=== PATIENT | male | born 1960 | race American Indian/Alaskan Native ===

== ENCOUNTER 2019-04-19 22:47 | Observation (INO) | payer OTHER ==
[2019-04-19 23:25] LABS: Hematocrit 37.8 % (35.5-45.6); Hemoglobin 12.7 gm/dl (11.8-15.2); Mean Corpuscular HGB Conc 34 % (32-34); Mean Corpuscular Volume 84 fl (84-94); Platelet Count 136 K/mm3 (140-440); Red Cell Distribution Width 14.9 % (13.2-15.2)
[2019-04-19 23:46] LABS: Alanine Aminotransferase 248 units/L (7-56); Albumin 3.7 g/dL (3.9-5); BUN/Creatinine Ratio 12; Blood Urea Nitrogen 12 mg/dL (9-20); Calcium 9.3 mg/dL (8.4-10.2); Hemolysis Index 65
--- NOTE | 2019-04-20 00:31 | XRay Report ---
CHEST 2 VIEWS INDICATION / CLINICAL INFORMATION: hypertension. COMPARISON: None available. FINDINGS: SUPPORT DEVICES: None. HEART / MEDIASTINUM: No significant abnormality. LUNGS / PLEURA: Parenchymal density in the left apical region. No pneumothorax. ADDITIONAL FINDINGS: No significant additional findings. IMPRESSION: Increased density in the left apical region. CT of the chest may be helpful for further evaluation if clinically indicated Signer Name: Shane GTZ Signed: 04/20/2019 12:26 AM Workstation Name: [email or web address]
[2019-04-20 00:44] LABS: Bilirubin,Urine NEG (Negative); Blood,Urine NEG (Negative); Color,Urine Yellow (Yellow); Mucus,Urine FEW /HPF; Protein,Urine <15 mg/dL mg/dL (Negative)
[2019-04-20 01:06] LABS: Amphetamine Screen,Urine PRESUMPTIVE NEGATIVE; Benzodiazepines Screen,Urine PRESUMPTIVE NEGATIVE; Cannabinoid Screen,Urine PRESUMPTIVE NEGATIVE; Cocaine Screen,Urine PRESUMPTIVE NEGATIVE; Methadone Screen,Urine PRESUMPTIVE NEGATIVE
[2019-04-20] MEDS ORDERED: NACL 0.9% 1000 ML 1,000 ML IV ONE (01:53)
[2019-04-20] MEDS ORDERED: MORPHINE IV ONE (01:53)
[2019-04-20] MEDS ORDERED: BABY ASPIRIN PO ONE (01:53)
[2019-04-20 02:32] LABS: Opiate Screen,Urine PRESUMPTIVE NEGATIVE
--- NOTE | 2019-04-20 03:17 | Emergency Department Report ---
ED Chest Pain HPI - General Chief Complaint: Chest Pain Stated Complaint: POSS STROKE Time Seen by Provider: 04/19/19 23:09 Source: patient Mode of arrival: Ambulatory Limitations: No Limitations - History of Present Illness Initial Comments: Reports that he drinks approximately a 6-pack of beer on the weekends. Complaint: chest pain -: Gradual, hour(s) Onset: during rest Pain Location: substernal Pain Radiation: none Severity: mild Severity scale (0 -10): 3 Quality: aching Consistency: intermittent Improves With: nothing Worsens With: nothing re: other (reports symptoms of arm spasms and paresthesias in UE when he has chest pain). denies: nausea, vomting, diaphoresis, dyspnea, sense of impending doom Other Symptoms: denies: cough, fever, syncope, rash, acid taste in mouth, leg swelling, palpitations, burping - Related Data Previous Rx's Medication Instructions Recorded Last Taken Type Acetaminophen/Codeine 1 tab PO Q6H PRN #20 tab 12/07/14 Unknown Rx [Acetaminophen-Codeine #3 TAB] Ibuprofen [Motrin] 600 mg PO Q8H PRN #40 tablet 12/07/14 Unknown Rx Sulfamethoxazole/Trimethoprim 1 each PO BID #20 tablet 12/07/14 Unknown Rx [Bactrim Ds] Allergies Allergy/AdvReac Type Severity Reaction Status Date / Time No Known Allergies Allergy Verified 12/07/14 01:47 Heart Score - HEART Score History: Moderately suspicious EKG: Non-specific Age: 45-65 Risk factors: 1-2 risk factors Troponin: < normal limit HEART Score: 4 ED Review of Systems ROS: Stated complaint: POSS STROKE Other details as noted in HPI Other: GENERAL: No weight change, fatigue, weakness, fever, chills, or night sweats SKIN: No changes in skin or hair, no itching, no rashes, no jaundice HEAD: No trauma, headache, or visual changes EYES: No blurriness, tearing, itching, acute visual loss, conjunctival discoloration, or scleral icterus EARS: No hearing loss, tinnitus, vertigo, or earache NOSE: No rhinorrhea, stuffiness, sneezing, itching, or epistaxis MOUTH: No bleeding gums, hoarseness, sore throat, or swelling CARDIAC: Chest Pain. No new murmur, palpitations, dyspnea on exertion, orthopnea, PND, or edema RESPIRATORY: No shortness of breath, wheeze, cough, sputum production, hemoptysis, pneumonia, asthma, bronchitis, or emphysema GI: No change in appetite, nausea, vomiting, dysphagia, change in bowel frequency, diarrhea, constipation, bleeding, hematemesis, melena, hematochezia, or abdominal pain URINARY: No frequency, urgency, polyuria, dysuria, hematuria, or incontinence MUSCULOSKELETAL: Bilateral UE spasms. No muscle weakness, joint stiffness, decr ease in range of motion, redness, swelling NEUROLOGIC: Tingling bilateral UE. No loss of sensation, numbness, tremors, weakness, paralysis, seizures HEMATOLOGIC: No anemia, easy bruising, bleeding, petechiae, or purpura ENDOCRINE: No hot or cold intolerance, sweating, polyuria, polydipsia or, polyp hagia no thyroid problems PSYCHIATRIC: No change in mood, no anxiety, no depression ED Past Medical Hx - Past Medical History Previous Medical History?: Yes Hx Hypertension: Yes Hx Diabetes: Yes - Surgical History Past Surgical History?: No - Social History Smoking Status: Current Every Day Smoker Substance Use Type: Alcohol - Medications Home Medications: Home Medications Medication Instructions Recorded Confirmed Last Taken Type Acetaminophen/Codeine 1 tab PO Q6H PRN #20 tab 12/07/14 Unknown Rx [Acetaminophen-Codeine #3 TAB] Ibuprofen [Motrin] 600 mg PO Q8H PRN #40 tablet 12/07/14 Unknown Rx Sulfamethoxazole/Trimethoprim 1 each PO BID #20 tablet 12/07/14 Unknown Rx [Bactrim Ds] ED Physical Exam - General Limitations: No Limitations - Other Other exam information: GENERAL: Patient in no acute distress HEAD: Normocephalic, atraumatic EYES: PERRLA, EOM intact, no scleral icterus, no papilledema, no conjunctival hemorrhage, visual banerjee and acuity wnl, NOSE: No tenderness, discharge, sinus tenderness MOUTH: No erythema, bleeding, exudate HEART: Regular rate and rhythm, no murmur, S1-S2 are auscultated, pulses are symmetric LUNGS: No wheezing, rales, rhonchi, bilateral breath sounds ABDOMEN: Normal bowel sounds, no tenderness, no rebound, no guarding, no masses, no CVA tenderness MUSCULOSKELETAL: Normal joint range of motion, no redness, no swelling, no te nderness NEUROLOGIC: GCS 15, Alert and Oriented x3, Cranial nerves intact, normal sensation, normal strength, normal gait, no cerebellar deficit PSYCHIATRIC: No homicidal or suicidal ideation, no anxiety, no depression, no hallucinations SKIN: Skin is warm and dry, no wounds, no rashes ED Course Vital Signs 04/19/19 04/19/19 04/20/19 22:56 23:18 00:00 Temperature 98 F 98.1 F Pulse Rate 113 H 89 88 Respiratory 20 22 24 Rate Blood Pressure 117/87 118/70 Blood Pressure 126/78 [Left] O2 Sat by Pulse 98 100 100 Oximetry 04/20/19 01:00 Temperature Pulse Rate 86 Respiratory 31 H Rate Blood Pressure 128/77 Blood Pressure [Left] O2 Sat by Pulse 100 Oximetry ED Medical Decision Making - Lab Data Result diagrams: 04/19/19 23:11 04/19/19 23:11 Laboratory Results - last 24 hr 04/19/19 04/19/19 04/19/19 22:57 23:11 23:11 WBC 6.0 RBC 4.50 Hgb 12.7 Hct 37.8 MCV 84 MCH 28 MCHC 34 RDW 14.9 Plt Count 136 L Sodium 132 L Potassium 4.2 Chloride 94.1 L Carbon Dioxide 23 Anion Gap 19 BUN 12 Creatinine 1.0 Estimated GFR > 60 BUN/Creatinine Ratio 12 Glucose 190 H POC Glucose 206 H Calcium 9.3 Magnesium Total Bilirubin 1.90 H AST 159 H ALT 248 H Alkaline Phosphatase 135 H Troponin T < 0.010 Total Protein 7.1 Albumin 3.7 L Albumin/Globulin Ratio 1.1 Urine Color Urine Turbidity Urine pH Ur Specific Preston Urine Protein Urine Glucose (UA) Urine Ketones Urine Blood Urine Nitrite Urine Bilirubin Urine Urobilinogen Ur Leukocyte Esterase Urine WBC (Auto) Urine RBC (Auto) U Epithel Cells (Auto) Urine Mucus Urine Opiates Screen Urine Methadone Screen Ur Barbiturates Screen Ur Phencyclidine Scrn Ur Amphetamines Screen U Benzodiazepines Scrn Urine Cocaine Screen U Marijuana (THC) Screen Drugs of Abuse Note Plasma/Serum Alcohol 04/19/19 04/19/19 04/19/19 23:11 23:59 23:59 WBC RBC Hgb Hct MCV MCH MCHC RDW Plt Count Sodium Potassium Chloride Carbon Dioxide Anion Gap BUN Creatinine Estimated GFR BUN/Creatinine Ratio Glucose POC Glucose Calcium Magnesium 1.80 Total Bilirubin AST ALT Alkaline Phosphatase Troponin T Total Protein Albumin Albumin/Globulin Ratio Urine Color Yellow Urine Turbidity Clear Urine pH 6.0 Ur Specific Preston 1.012 Urine Protein <15 mg/dl Urine Glucose (UA) Neg Urine Ketones Neg Urine Blood Neg Urine Nitrite Neg Urine Bilirubin Neg Urine Urobilinogen 4.0 Ur Leukocyte Esterase Neg Urine WBC (Auto) 1.0 Urine RBC (Auto) 4.0 U Epithel Cells (Auto) 1.0 Urine Mucus Few Urine Opiates Screen Presumptive negative Urine Methadone Screen Presumptive negative Ur Barbiturates Screen Presumptive negative Ur Phencyclidine Scrn Presumptive negative Ur Amphetamines Screen Presumptive negative U Benzodiazepines Scrn Presumptive negative Urine Cocaine Screen Presumptive negative U Marijuana (THC) Screen Presumptive negative Drugs of Abuse Note Disclamer Plasma/Serum Alcohol 04/20/19 04/20/19 00:05 02:06 WBC RBC Hgb Hct MCV MCH MCHC RDW Plt Count Sodium Potassium Chloride Carbon Dioxide Anion Gap BUN Creatinine Estimated GFR BUN/Creatinine Ratio Glucose POC Glucose Calcium Magnesium Total Bilirubin AST ALT Alkaline Phosphatase Troponin T < 0.010 Total Protein Albumin Albumin/Globulin Ratio Urine Color Urine Turbidity Urine pH Ur Specific Preston Urine Protein Urine Glucose (UA) Urine Ketones Urine Blood Urine Nitrite Urine Bilirubin Urine Urobilinogen Ur Leukocyte Esterase Urine WBC (Auto) Urine RBC (Auto) U Epithel Cells (Auto) Urine Mucus Urine Opiates Screen Urine Methadone Screen Ur Barbiturates Screen Ur Phencyclidine Scrn Ur Amphetamines Screen U Benzodiazepines Scrn Urine Cocaine Screen U Marijuana (THC) Screen Drugs of Abuse Note Plasma/Serum Alcohol < 0.01 - EKG Data When compared to previous EKG there are: no significant change - Radiology Data Radiology results: report reviewed - Medical Decision Making At 0511 patient comfortable. Plan admit for further evaluation. Lung changes but no symptoms of pneumonia. Plan evaluate for chest pain rule out. Dr. Macias updated and accepts admission. Critical care attestation.: If time is entered above; I have spent that time in minutes in the direct care of this critically ill patient, excluding procedure time. ED Disposition Clinical Impression: Hyperbilirubinemia, Elevated LFTs Chest pain Qualifiers: Chest pain type: unspecified Qualified Code(s): R07.9 - Chest pain, unspecified Pneumonia Qualifiers: Pneumonia type: due to unspecified organism Laterality: unspecified laterality Lung location: unspecified part of lung Qualified Code(s): J18.9 - Pneumonia, unspecified organism Disposition: -09 OP ADMIT IP TO THIS HOSP Is pt being admited?: Yes Condition: Stable Instructions: Chest Pain (ED), Bacterial Pneumonia (ED) [facility] - 3-5 Days Time of Disposition: 05:06
--- NOTE | 2019-04-20 04:35 | Cat Scan Report ---
CT chest w con, CT abdomen pelvis w con INDICATION / CLINICAL INFORMATION: Chest Pain, abdomen and pelvic pain, elevated liver function tests. TECHNIQUE: 100 cc of Omnipaque 350 was administered intraven[address] All CT scans at this location are performed us ing CT dose reduction for ALARA by means of automated exposure control. COMPARISON: None available. FINDINGS: Diffuse airspace disease is seen in the left apex there are a few bulla seen lower in the left lung. No other significant parenchymal abnormality is identified. No enlarged mediastinal or hilar lymph no lory are identified. No significant skeletal abnormality is seen in the thorax. In the abdomen, no free fluid is seen. There are some fluid-filled loops of small bowel present. Diff use fatty infiltration is present in the liver without focal abnormality. The spleen, kidneys, pancre as and adrenal glands are normal. No enlarged retroperitoneal lymph nodes are seen. Diffuse atheroscl erotic changes present without evidence of an aneurysm. In the pelvis, no free fluid is seen. No enlarged lymph nodes are identified. The bladder and the tete endix are normal. No significant skeletal abnormality is identified. IMPRESSION: 1. Airspace disease in the left apex. There are a few bulla present more inferiorly in the left lung 2. Fluid-filled loops of small bowel could represent mild enteritis 3. Diffuse fatty infiltration in the liver without focal abnormality 4. Atherosclerotic change without evidence of an aneurysm Signer Name: Shane Baker MD FACR Signed: 04/20/2019 4:31 AM Workstation Name: [id number]
[2019-04-20] MEDS ORDERED: LEVAQUIN 750MG/150ML 750 MG/150 ML BAG IV ONE ×2 (05:02→05:51)
[2019-04-20] MEDS ORDERED: TYLENOL PO PRN (05:07)
[2019-04-20] MEDS ORDERED: SODIUM CHLORIDE FLUSH SYRINGE 10 ML IV PRN (05:07)
[2019-04-20] MEDS ORDERED: ZOFRAN IV PRN ×2 (05:07→05:24)
[2019-04-20] MEDS ORDERED: MORPHINE IV PRN (05:23)
[2019-04-20] MEDS ORDERED: NITROSTAT SL PRN (05:26)
[2019-04-20] MEDS ORDERED: D50W (25GM) Syringe IV PRN (05:31)
--- NOTE | 2019-04-20 05:56 | History and Physical Report ---
CHIEF COMPLAINT: Chest pain. HISTORY OF PRESENT ILLNESS: The patient is a 59-year-old male who said he was having sharp retrosternal chest pain that started yesterday. Pain is associated with shortness of breath, nausea, but no vomiting. The pain is also associated with tingling sensation in the left upper extremity. There was no history of dizziness. No history of diaphoresis and no history of cough or fever and patient presented for evaluation. PAST MEDICAL HISTORY: Pertinent for diabetes mellitus. Also, the patient has past history of hypertension. FAMILY HISTORY: Pertinent for coronary artery disease in the mother. SOCIAL HISTORY: The patient smokes cigarettes. Does not drink alcohol and does not use illicit drugs. MEDICATIONS: The patient's home medications involve Tylenol No. 3 one by mouth every 6 hours as needed for pain, Motrin 600 mg by mouth every 8 hours as needed for pain, Bactrim-DS 1 by mouth twice daily as needed for pain. ALLERGIES: There are no known drug allergies. REVIEW OF SYSTEMS: CONSTITUTIONAL: There is no fever, no chills, no diaphoresis. HEENT: There is no headache or sore throat. CARDIOVASCULAR SYSTEM: Chest pain is present. No orthopnea. RESPIRATORY SYSTEM: Shortness of breath is present. No cough. GASTROINTESTINAL SYSTEM: There is nausea, but no vomiting. No abdominal pain, diarrhea or constipation. NEUROLOGICAL SYSTEM: Numbness and tingling sensation in the left upper extremity noted. No dizziness, no altered mental status. MUSCULOSKELETAL SYSTEM: There is no joint pain or swelling. DERMATOLOGICAL SYSTEM: There is no skin rash or itching. GENITOURINARY SYSTEM: There is no dysuria, hematuria, or flank pain. Rest of system review is normal. PHYSICAL EXAMINATION: GENERAL: At the time of exam, the patient was found to be alert, oriented x 3 and not in acute distress. VITAL SIGNS: At the initial time of presentation shows temperature of 98 degrees Fahrenheit, pulse of 113, respirations 20, blood pressure 117/87, O2 sat of 98% on room air. HEENT: Showed pupils to be equal, round, reactive to light and accommodating. Extraocular muscles are intact. NECK: Supple with no JVD or carotid bruit. CARDIOVASCULAR SYSTEM: Showed normal first and second heart sounds with no gallops or murmurs. RESPIRATORY SYSTEM: Show good air entry on both sides of the lungs with no abnormal breath sounds. GASTROINTESTINAL SYSTEM: Show abdomen to be full, soft, nontender with no organomegaly or rigidity. NEUROLOGICAL: Shows no focal deficit. MUSCULOSKELETAL SYSTEM: Show no joint swelling or tenderness. DERMATOLOGICAL SYSTEM: Show no skin rash. GENITOURINARY SYSTEM: Showing no costovertebral angle tenderness. PERTINENT LABORATORY DATA AND IMAGING STUDIES: The patient has CT of the abdomen and pelvis done that shows airspace disease in the left apex of the heart. Also, there is finding of fluid filled loops of small bowel that the radiologist say may represent mild enteritis. There is finding of diffuse fatty infiltrate in the liver without focal abnormality. Also, the CT abdomen and pelvis with contrast shows atherosclerotic change without evidence of an aneurysm. Also, the patient has CT of the chest done that shows the same thing as CT of the abdomen and pelvis. The patient had chest x-ray done that shows increased density in the left apical region with recommendation to do a CT of the chest. The patient's lab result shows CBC with normal white count, normal hemoglobin and normal hematocrit with low platelet count of 136,000. The patient's chemistry shows a low sodium level of 132 with low chloride level of 94.1 and elevated blood glucose of 206. The patient's liver transaminases show high AST of 159 and high ALT of 248 with elevated total bilirubin of 1.9 and the patient's urinalysis came back unremarkable. Troponin level came back normal and patient's toxicology screen was unremarkable and the patient's plasma/serum alcohol level was unremarkable. DIAGNOSES: 1. Chest pain. 2. Transaminitis. 3. Enteritis. 4. Left apex airspace disease. PLAN OF CARE: 1. The patient will be admitted to telemetry. 2. The patient will have serial cardiac enzymes involving troponin, total CK, and CK-MB checked every 6 hours x 2 more levels. 3. The patient will have Lexiscan stress test done this morning and will remain n.p.o. for the stress test. 4. The patient will have Accu-Chek q.4 hours followed by low-dose sliding scale using regular insulin treatment. 5. The patient will be on Tylenol 650 mg by mouth every 4 hours for fever and headache. 6. The patient will be on aspirin 325 mg by mouth daily. 7. The patient will be on IV morphine 2 mg every 5 minutes as needed for chest pain and will be on nitro paste half inch to anterior chest wall q.i.d. Also, the patient will be on Nitrostat 0.4 mg sublingual every 5 minutes as needed for breakthrough chest pain. 8. The patient will be on IV Zofran 4 mg every 8 hours for nausea and vomiting. 9. The patient will be on IV Levaquin 750 mg daily for treatment of enteritis and also the patient will be on IV metronidazole 500 mg every 8 hours for treatment of enteritis. 10. The patient will have Lexiscan stress test done this morning. 11. gastroenterology consult with [facility] for evaluation of fatty liver with Transaminitis JOB# [id number] OCN/NTS MTDD
[2019-04-20] MEDS ORDERED: FLAGYL 500 MG/100 ML 500 MG/100 ML BAG IV SCH ×2 (06:00→19:00)
[2019-04-20] MEDS: HumuLIN R SUB-Q SCH ×4 (06:12→17:19)
[2019-04-20] MEDS ORDERED: NITRO-BID 2% TP ONE (06:16)
[2019-04-20] MEDS: NITRO-BID 2% TP SCH ×3 (06:18→16:28)
[2019-04-20 07:19] LABS: Creatine Kinase MB 4.7 ng/mL (0.0-4.0)
[2019-04-20] MEDS ORDERED: LEXISCAN IV ONE (08:44)
[2019-04-20] MEDS ORDERED: LEVAQUIN 750MG/150ML 750 MG/150 ML BAG IV SCH (10:00)
[2019-04-20] MEDS ORDERED: ASPIRIN PO SCH (10:00)
[2019-04-20] MEDS ORDERED: SODIUM CHLORIDE FLUSH SYRINGE 10 ML IV SCH (10:00)
[2019-04-20 11:01] LABS: Hepatitis B Surface Antigen Non-Reactive (Negative); Hepatitis C Virus Antibody Non-Reactive (NonReactive)
--- NOTE | 2019-04-20 15:13 | Discharge Summary ---
Providers - Providers Date of Admission: 04/20/19 05:07 Date of discharge: 04/20/19 Attending physician: DARCI TAYLOR 04/20/19 06:48 Consult to Physician [CONS] Routine Comment: Consulting Provider: OH MATUTE Physician Instructions: Reason For Exam: Fatty Liver with Transaminitis Primary care physician: [facility] CLARA OCASIO MD Hospitalization Condition: Stable Hospital course: Patient is a 59 yo man with a history of type 2 DM, hypertension, tobacco and alcohol dependency who presented with left sided chest pains after lifting heavy paint up steps. He developed sharp arm pains and leg cramping followed by chest pains. It appears he is in denial about how much he drinks beers. Initially he mentioned drinking beers (12 pack) over the weekend then he admits to drinking 24 oz beer almost daily (he states that he doesn't drink beer every single day so he is not an Alcoholic). CT chest/abd/pelvis reviewed with Radiologist. Discharge Diagnoses: Chest pains, stress test negative, most likely costochondritis Fatty liver with transaminitis, most likely related to ETOH, counseling done, needs outpat GI referral Left lung apex disease, d/w Radiologist Dr. Reza, unlikely pna, appears chronic. No Enteritis, no history of diarrhea. Tobacco dependency, student support counselor on stopping ETOH dependency student support counselor on stopping Malnutrition suspected Disposition: DC-01 TO HOME OR SELFCARE Time spent for discharge: 35 minutes Core Measure Documentation - Palliative Care Palliative Care/ Comfort Measures: Not Applicable - Core Measures Any of the following diagnoses?: none - VTE Discharge Requirements Deep Vein Thrombosis/Pulmonary Embolism Present on Admission: No Has pt received <5 days of overlap therapy or INR<2.0: No Anticoagulant overlap therapy prescribed at discharge: No Contraindication No Overlap Therapy order at DC: Not Indicated Exam - Physical Exam Narrative exam: Gen: WDWN, NAD, Awake, Alert, Orientated HEENT: NCAT, EOMI, PERRL, OP Clear Neck: supple, no adenopathy, no thyromegaly, no JVD CVS/Heart: RRR, normal S1S2, pulses present bilaterally Chest/Lungs: CTA B, Symmetrical chest expansion, good air entry bilaterally, reproducible left chest wall tenderness with touch GI/Abdomen: soft, NTND, good bowel sounds, no guarding or rebound /Bladder: no suprapubic tenderness, no CVA or paraspinal tenderness Extermity/Skin: no c/c/e, no obvious rash MSK: FROM x 4 Neuro: CN 2-12 grossly intact, no new focal deficits Psych: calm - Constitutional Vitals: Temp Pulse Resp BP Pulse Ox 98.1 F 76 18 113/68 100 04/20/19 06:25 04/20/19 12:09 04/20/19 12:09 04/20/19 12:09 04/20/19 12:09 Plan Activity: other (no strenous activity) Diet: regular Special Instructions: smoking cessation Additional Instructions: Take over the counter Thiamine/Vitamin B1 daily with folic acid [facility] - 3-5 Days LINUS PAPPAS MD [Staff Physician] - 7 Days
--- NOTE | 2019-04-20 15:38 | Consultation ---
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 Pt drinks 12 pk beer/wk. Denies known hx of liver disease. Hepatitis serologies negative. He is on cholesterol meds at home. No family hx of colon cancer. He denies abd pain, N/V. He states he had AMARILIS x 1-2 months, but is recovering, and states he lost ~20#. He is on Nexium with good control of GERD. No change in BMs, no dysphagia or early satiety. No GI bleed. Meds reviewed. Past History Past Medical History: diabetes, hypertension, hyperlipidemia Past Surgical History: No surgical history Social history: smoking, alcohol abuse Family history: no significant family history Medications and Allergies Allergies Allergy/AdvReac Type Severity Reaction Status Date / Time No Known Allergies Allergy Verified 12/07/14 01:47 Home Medications Medication Instructions Recorded Confirmed Last Taken Type Esomeprazole Magnesium [Nexium 20 mg PO DAILY 04/20/19 04/20/19 Unknown History 24Hr] metFORMIN [Glucophage] 500 mg PO BID 04/20/19 04/20/19 Unknown History Active Meds: Active Medications Acetaminophen (Tylenol) 650 mg PO Q4H PRN PRN Reason: Pain MILD(1-3)/Fever >100.5/SETHI Aspirin (Aspirin) 325 mg PO QDAY SIMON Last Admin: 04/20/19 10:21 Dose: 325 mg Documented by: Dextrose (D50w (25gm) Syringe) 50 ml IV PRN PRN PRN Reason: Hypoglycemia Levofloxacin/Dextrose (Levaquin 750mg/150ml) 750 mg in 150 mls @ 100 mls/hr IV Q24HR SIMON; Protocol Metronidazole (Flagyl 500 Mg/100 Ml) 500 mg in 100 mls @ 100 mls/hr IV Q8H SIMON; Protocol Insulin Human Regular (Humulin R) 0 units SUB-Q Q4H SIMON; Protocol Last Admin: 04/20/19 10:33 Dose: Not Given Documented by: Morphine Sulfate (Morphine) 2 mg IV Q5MIN PRN PRN Reason: Chest Pain unrelieved by NTG Nitroglycerin (Nitro-Bid 2%) 0.5 inch TP QIDNTG [facility]; Protocol Last Admin: 04/20/19 10:21 Dose: 0.5 inch Documented by: Ondansetron HCl (Zofran) 4 mg IV Q8H PRN PRN Reason: Nausea And Vomiting Sodium Chloride (Sodium Chloride Flush Syringe 10 Ml) 10 ml IV BID [facility] Last Admin: 04/20/19 13:53 Dose: 10 ml Documented by: Sodium Chloride (Sodium Chloride Flush Syringe 10 Ml) 10 ml IV PRN PRN PRN Reason: LINE FLUSH Review of Systems All systems: negative (as per HPI) Exam - Constitutional Vitals: Temp Pulse Resp BP Pulse Ox 98.1 F 76 18 113/68 100 04/20/19 06:25 04/20/19 12:09 04/20/19 12:09 04/20/19 12:09 04/20/19 12:09 General appearance: Present: no acute distress - EENT Eyes: Present: PERRL, EOM intact ENT: hearing intact - Respiratory Respiratory effort: normal Respiratory: bilateral: CTA - Cardiovascular Rhythm: regular Heart Sounds: Present: S1 & S2 - Extremities Extremities: No edema - Abdominal General gastrointestinal: Present: soft, non-tender Results - Labs CBC & Chem 7: 04/19/19 23:11 04/19/19 23:11 Labs: Abnormal lab results 04/19/19 04/19/19 04/19/19 Range/Units 22:57 23:11 23:11 Plt Count 136 L (140-440) K/mm3 Sodium 132 L (137-145) mmol/L Chloride 94.1 L (98-107) mmol/L Glucose 190 H (75-100) mg/dL POC Glucose 206 H (70-105) Total Bilirubin 1.90 H (0.1-1.2) mg/dL AST 159 H (5-40) units/L ALT 248 H (7-56) units/L Alkaline Phosphatase 135 H (35-129) units/L Total Creatine Kinase (55-170) units/L CK-MB (CK-2) (0.0-4.0) ng/mL Albumin 3.7 L (3.9-5) g/dL 04/20/19 04/20/19 Range/Units 06:18 06:44 Plt Count (140-440) K/mm3 Sodium (137-145) mmol/L Chloride (98-107) mmol/L Glucose (75-100) mg/dL POC Glucose 109 H (70-105) Total Bilirubin (0.1-1.2) mg/dL AST (5-40) units/L ALT (7-56) units/L Alkaline Phosphatase (35-129) units/L Total Creatine Kinase 351 H (55-170) units/L CK-MB (CK-2) 4.7 H (0.0-4.0) ng/mL Albumin (3.9-5) g/dL - Imaging and Cardiology CT scan - abdomen: report reviewed Assessment and Plan 1. Abnormal LFTs - etiology unclear. May be due to statins, which I believe the pt is taking at home. Could be acute, or other chronic condition. - okay to D/C home from GI standpoint - no statins and no beer - f/u as outpatient in 2-3 wks for repeat labs and further evaluation
[2019-04-20 18:33] VITALS: BP 108/68
--- NOTE | 2019-04-21 03:36 | Treadmill Report ---
NUCLEAR STRESS TEST The patient is here for a nuclear stress test. REFERRING PHYSICIAN: Hospitalist service. PROTOCOL: The patient was brought to the stress lab in a postoperative state, given 10 mCi of technetium 99m at rest. The patient underwent rest imaging. The patient underwent Lexiscan stress test per standard protocol. At peak stress, the patient was given 26 mCi technetium 99m. Shortly thereafter, the patient underwent stress imaging. Raw imaging reveals mild GI artifact with no significant motion artifact. SPECT imaging examined carefully in horizontal long axis, vertical long axis, short axis views. There is normal homogenous uptake of radioisotope in all reported segments. No evidence of significant fixed or reversible perfusion defects suggestive of prior infarction or ischemia. Gated wall motion reveals normal systolic thickening, calculated ejection fraction 67%. No TID. CONCLUSIONS: 1. Normal myocardial perfusion scan without evidence of active ischemia or prior infarction. 2. Normal left ventricular systolic performance without evidence of transient ischemic dilatation or stress-induced segmental wall motion abnormalities. 3. Lexiscan stress test reported separately. JOB# [id number] SBCarlito/HERNANDO
[2019-04-21] MEDS ORDERED: LEVAQUIN 750MG/150ML 750 MG/150 ML BAG IV SCH (10:00)
== END 2019-04-20 18:42 | disposition home or self-care (01) ==
LOC: ED 22:47 → 4A 04-20 05:07
PROVIDERS: ADMIT Internal Medicine; ATTEND Internal Medicine
DX: R07.89 Other chest pain (principal); J18.9 Pneumonia, unspecified organism; E11.9 Type 2 diabetes mellitus without complications; I10 Essential (primary) hypertension; E78.5 Hyperlipidemia, unspecified; R74.0 Nonspecific elevation of levels of transaminase and lactic acid dehydrogenase [LDH]; R91.8 Other nonspecific abnormal finding of lung field; K52.9 Noninfective gastroenteritis and colitis, unspecified; F17.210 Nicotine dependence, cigarettes, uncomplicated; Z82.49 Family history of ischemic heart disease and other diseases of the circulatory system; Z79.899 Other long term (current) drug therapy
CPT/HCPCS: 36415; 71046; 71260; 74177; 78452; 80053; 80074; 80307; 81001; 82140; 82550; 82553; 82962; 83735; 84484; 85027; 87040; 87116; 93005; 93010; 93017; 96365; 96367; 96372; 96375; 99284; 99406; A9502; G0378; J1956; J2270; J2785; J7030; Q9967; 80320; G0480

== ENCOUNTER 2019-05-12 13:49 | Emergency (ER) | payer OTHER ==
[2019-05-12] MEDS ORDERED: NORCO 5/325 PO ONE (14:39)
--- NOTE | 2019-05-12 14:41 | Emergency Department Report ---
HPI <SHIRLEY DOLAN - Last Filed: 05/12/19 22:09> - HPI HPI: 59-year-old -[place] male presents to the emergency department with a complaint of some left flank pain and left lateral back pain after the patient says he fell off a ladder and hit those areas on the counter in the kitchen. He denies hitting his head or any loss of consciousness. He denies any numbness or paresthesias or any neurological deficits. He denies any past medical history. Patient denies any current alcohol or illicit drug use. He has not taken anything, and received anything, for his symptoms prior to arrival. <KWASI HERNANDEZ - Last Filed: 05/12/19 22:24> - General Chief Complaint: Back Pain/Injury Time Seen by Provider: 05/12/19 14:04 ED Past Medical Hx <SHIRLEY DOLAN - Last Filed: 05/12/19 22:09> - Past Medical History Hx Hypertension: Yes Hx Heart Attack/AMI: No Hx Congestive Heart Failure: No Hx Diabetes: Yes Hx Deep Vein Thrombosis: No Hx GERD: Yes Hx Liver Disease: No Hx Asthma: No Hx COPD: No - Surgical History Hx Coronary Stent: No Hx Pacemaker: No Hx Internal Defibrillator: No - Social History Smoking Status: Never Smoker Substance Use Type: Alcohol <KWASI HERNANDEZ - Last Filed: 05/12/19 22:24> - Medications Home Medications: Home Medications Medication Instructions Recorded Confirmed Last Taken Type Esomeprazole Magnesium [Nexium 20 mg PO DAILY 04/20/19 05/12/19 05/11/19 History 24Hr] metFORMIN [Glucophage] 500 mg PO BID 04/20/19 05/12/19 05/11/19 History Lisinopril [Zestril] 5 mg PO QDAY 05/12/19 05/12/19 05/11/19 History ED Review of Systems ROS: Stated complaint: BACK PAIN/ETOH Other details as noted in HPI <SHIRLEY DOLAN - Last Filed: 05/12/19 22:09> ROS: Stated complaint: BACK PAIN/ETOH Other details as noted in HPI Comment: All other systems reviewed and negative Constitutional: denies: chills, fever Eyes: denies: eye pain, vision change ENT: denies: ear pain, throat pain Respiratory: denies: cough, shortness of breath Cardiovascular: denies: chest pain, palpitations Gastrointestinal: abdominal pain (left flank). denies: vomiting Genitourinary: denies: dysuria, discharge Musculoskeletal: back pain. denies: joint swelling Skin: denies: rash, change in color Neurological: denies: headache, weakness, numbness, paresthesias <KWASI HERNANDEZ S - Last Filed: 05/12/19 22:24> Physical Exam - Physical Exam Vital Signs: Vital Signs 05/12/19 05/12/19 13:56 17:11 Temperature 98 F Pulse Rate 110 H 74 Respiratory 16 16 Rate Blood Pressure 145/91 Blood Pressure 135/75 [Left] O2 Sat by Pulse 96 96 Oximetry <SHIRLEY DOLAN - Last Filed: 05/12/19 22:09> - Physical Exam Vital Signs: Vital Signs 05/12/19 13:56 Temperature 98 F Pulse Rate 110 H Respiratory 16 Rate Blood Pressure 145/91 O2 Sat by Pulse 96 Oximetry Physical Exam: GENERAL: The patient is well-developed well-nourished. HENT: Normocephalic. Atraumatic. Patient has moist mucous membranes. EYES: Extraocular motions are intact. NECK: Supple. Trachea is midline. CHEST/LUNGS: Clear to auscultation. There is no respiratory distress noted. HEART/CARDIOVASCULAR: Regular. There is no tachycardia. There is no murmur. ABDOMEN: Abdomen is soft, nontender. Patient has normal bowel sounds. There is no abdominal distention. SKIN: Skin is warm and dry. NEURO: The patient is awake, alert, and oriented. The patient is cooperative. The patient has no focal neurologic deficits. Normal speech. CN II - XII grossly intact. MUSCULOSKELETAL: Full range of motion. No TTP to the extremities or any obvious deformity. BACK: No midline thoracic or lumbar TTP, step off or deformity. There is some reproducible left lateral back TTP. <KWASI HERNANDEZ S - Last Filed: 05/12/19 22:24> ED Course Vital Signs 05/12/19 05/12/19 13:56 17:11 Temperature 98 F Pulse Rate 110 H 74 Respiratory 16 16 Rate Blood Pressure 145/91 Blood Pressure 135/75 [Left] O2 Sat by Pulse 96 96 Oximetry <SHIRLEY DOLAN - Last Filed: 05/12/19 22:09> Vital Signs 05/12/19 13:56 Temperature 98 F Pulse Rate 110 H Respiratory 16 Rate Blood Pressure 145/91 O2 Sat by Pulse 96 Oximetry <KWASI HERNANDEZ - Last Filed: 05/12/19 22:24> ED Medical Decision Making - Lab Data Result diagrams: 05/12/19 14:45 05/12/19 14:45 - Medical Decision Making I reassessed Mr. Wagner. He is awake alert and ambulatory without difficulty. After 8 hours of observation here in emergency department he is clinically sober. Discharged to self-care. <SHIRLEY DOLAN - Last Filed: 05/12/19 22:09> - Lab Data Result diagrams: 05/12/19 14:45 05/12/19 14:45 - Radiology Data Radiology results: report reviewed CT of the lumbar spine and CT of the abd/pelvis did not show any acute processes as read by radiology. - Medical Decision Making The patient presented with pain to the left flank and lateral back after a fall off a ladder. No obvious signs of trauma on examination. CT of the lumbar spine and CT of the abd/pelvis did not show any acute process or pathology. Labs unremarkable except for alcohol of 0.25. He was given IVF including banana bag. The patient was signed out to my colleague to follow until the patient is sober or someone can come to get him from the emergency department. He was given matt dela cruz instructions and will return to the ED with any worsening of his symptoms or any acute distress. - Differential Diagnosis Fracture, contusion, muscle spasm, lacerations <KWASI HERNANDEZ - Last Filed: 05/12/19 22:24> Critical care attestation.: If time is entered above; I have spent that time in minutes in the direct care of this critically ill patient, excluding procedure time. <SHIRLEY DOLAN - Last Filed: 05/12/19 22:09> Critical Care Time: No Critical care attestation.: If time is entered above; I have spent that time in minutes in the direct care of this critically ill patient, excluding procedure time. <KWASI HERNANDEZ - Last Filed: 05/12/19 22:24> ED Disposition Is pt being admited?: No Does the pt Need Aspirin: No <SHIRLEY DOLAN - Last Filed: 05/12/19 22:09> Is pt being admited?: No Time of Disposition: 22:24 <KWASI HERNANDEZ - Last Filed: 05/12/19 22:24> Clinical Impression: Flank pain Fall Qualifiers: Encounter type: initial encounter Qualified Code(s): W19.XXXA - Unspecified fall, initial encounter Alcohol intoxication Qualifiers: Complication of substance-induced condition: uncomplicated Qualified Code(s): F10.920 - Alcohol use, unspecified with intoxication, uncomplicated Back pain Qualifiers: Back pain location: low back pain Chronicity: acute Disposition: - TO HOME OR SELFCARE Condition: Stable Instructions: Alcohol Intoxication (ED), Back Pain (ED), Fall Prevention (ED) Additional Instructions: Please stop drinking alcohol. Please follow up with a primary care physician in the next few days. Return to the emergency Department with any worsening of your symptoms or any acute distress. Referrals: PRIMARY CARE, [Primary Care Provider] - 2-3 Days LAURE BENNETT MD [Staff Physician] - 2-3 Days [facility] [Outside] - 2-3 Days
[2019-05-12 15:06] LABS: Basophils # (Auto) 0.2 K/mm3 (0.0-0.1); Eosinophils # (Auto) 0.1 K/mm3 (0.0-0.4); Eosinophils % (Auto) 1.1 % (0.0-4.3); Hematocrit 37.7 % (35.5-45.6); Hemoglobin 12.6 gm/dl (11.8-15.2); Lymphocytes # (Auto) 3.4 K/mm3 (1.2-5.4); Mean Corpuscular HGB Conc 33 % (32-34); Mean Corpuscular Volume 84 fl (84-94); Monocytes # (Auto) 0.4 K/mm3 (0.0-0.8); Monocytes % (Auto) 5.4 % (0.0-7.3); Platelet Count 308 K/mm3 (140-440); Red Blood Count 4.51 M/mm3 (3.65-5.03)
[2019-05-12 15:18] LABS: BUN/Creatinine Ratio 18; Blood Urea Nitrogen 14 mg/dL (9-20); Calcium 9.3 mg/dL (8.4-10.2); Hemolysis Index 9
[2019-05-12] MEDS ORDERED: VITAMIN B-1 100 MG, FOLVITE 1 MG, INFUVITE 10 ML in NACL 0.9% 1000 ML 1,000 ML IV ONE (16:20)
--- NOTE | 2019-05-12 16:26 | Cat Scan Report ---
CT ABDOMEN AND PELVIS WITHOUT CONTRAST INDICATION / CLINICAL INFORMATION: fall, left flank pain. TECHNIQUE: Axial CT images were obtained through the abdomen and pelvis without IV contrast. All CT scans at [facility] are performed using CT dose reduction for ALARA by means of automated exposure control. COMPARISON: CT scan dated 04/20/2019 FINDINGS: LOWER CHEST: Scarring is noted in the left lung base. There are calcified pleural plaques in the left base. LIVER: Unchanged GALLBLADDER: No significant abnormality. BILE DUCTS: No significant abnormality. PANCREAS: No significant abnormality. SPLEEN: No significant abnormality. ADRENALS: No significant abnormality. RIGHT KIDNEY and URETER: No significant abnormality. LEFT KIDNEY and URETER: No significant abnormality. STOMACH and SMALL BOWEL: No significant abnormality. COLON: Moderate amount stool is noted in the colon. APPENDIX: No significant abnormality. PERITONEUM: No free fluid. No free air. No fluid collection. LYMPH NODES: No significant adenopathy. AORTA and ARTERIES: Atherosclerotic calcifications are noted in the aorta and iliac arteries. The aor ta is normal in diameter. IVC and VEINS: No significant abnormality. URINARY BLADDER: No significant abnormality. REPRODUCTIVE ORGANS: No significant abnormality. ADDITIONAL FINDINGS: None. SKELETAL SYSTEM: No acute osseous abnormalities are seen. IMPRESSION: 1. There is no obstruction, inflammation, or free air. No acute abnormality is seen in the abdomen or pelvis. No intra-abdominal organ injury is identified. Signer Name: Carlos Penaloza MD Signed: 05/12/2019 4:22 PM Workstation Name: [id number]
--- NOTE | 2019-05-12 17:06 | Cat Scan Report ---
CT lumbar spine wo con INDICATION / CLINICAL INFORMATION: 59 years Male; fall, back pain. TECHNIQUE: Axial CT images of the lumbar spine were obtained after administration of intrathecal contrast. Sagi ttal and coronal reformatted images were produced. All CT scans at this location are performed using CT dose reduction for ALARA by means of automated exposure control. COMPARISON: None available. FINDINGS: POST-SURGICAL CHANGES: None. ALIGNMENT: No significant abnormality. VERTEBRAE: Healing transverse process fractures seen on the right at L3 and L4. There may be mild lo ss of height at L5. No definitive signs of acute injury appreciated at this level. Mild facet hypertrophy seen at various levels. INTERVERTEBRAL DISCS: Minimal disc bulge seen at L4-5 resulting in mild thecal sac narrowing. There i s also mild to moderate foraminal narrowing bilaterally at this level without impingement. PARASPINAL SOFT TISSUES: No significant abnormality. ADDITIONAL FINDINGS: Atherosclerotic disease seen in the aorta and its branches. There is fusion of the sacroiliac joints bilaterally, anteriorly. IMPRESSION: 1. No signs of acute bony trauma to the lumbar spine. Subacute injury suspected, as described above. Signer Name: Freeman Mcmahan MD, III Signed: 05/12/2019 5:02 PM Workstation Name: [id number]
[2019-05-12 17:12] VITALS: BP 135/75
[2019-05-12] MEDS ORDERED: TORADOL IV ONE (17:16)
== END 2019-05-12 22:46 | disposition home or self-care (01) ==
LOC: ED 13:49
DX: F10.920 Alcohol use, unspecified with intoxication, uncomplicated (principal); M54.9 Dorsalgia, unspecified; R10.9 Unspecified abdominal pain; I10 Essential (primary) hypertension; K21.9 Gastro-esophageal reflux disease without esophagitis
CPT/HCPCS: 36415; 72131; 74176; 80048; 85025; 96365; 96366; 96375; 99284; J1885; J3411; J7030; 80320; G0480

== ENCOUNTER 2019-05-17 13:21 | Emergency (ER) | payer OTHER ==
[2019-05-17 14:26] LABS: Basophils # (Auto) 0.1 K/mm3 (0.0-0.1); Basophils % (Auto) 0.9 % (0.0-1.8); Eosinophils # (Auto) 0.1 K/mm3 (0.0-0.4); Eosinophils % (Auto) 1.2 % (0.0-4.3); Hematocrit 35.3 % (35.5-45.6); Hemoglobin 11.8 gm/dl (11.8-15.2); Lymphocytes # (Auto) 2.6 K/mm3 (1.2-5.4); Lymphocytes % (Auto) 40.2 % (13.4-35.0); Mean Corpuscular HGB Conc 33 % (32-34); Mean Corpuscular Volume 83 fl (84-94); Monocytes # (Auto) 0.3 K/mm3 (0.0-0.8); Monocytes % (Auto) 5.3 % (0.0-7.3); Platelet Count 237 K/mm3 (140-440); Red Blood Count 4.26 M/mm3 (3.65-5.03); Red Cell Distribution Width 15.2 % (13.2-15.2)
[2019-05-17 14:42] LABS: BUN/Creatinine Ratio 23; Blood Urea Nitrogen 16 mg/dL (9-20); Calcium 8.6 mg/dL (8.4-10.2); Hemolysis Index 13
[2019-05-17 14:48] LABS: Bacteria,Urine 1+ /HPF (Negative); Bilirubin,Urine NEG (Negative); Blood,Urine NEG (Negative); Color,Urine Colorless (Yellow); Protein,Urine <15 mg/dL mg/dL (Negative); Urobilinogen,Urine < 2.0 mg/dL (<2.0)
--- NOTE | 2019-05-17 15:03 | Emergency Department Report ---
ED General Adult HPI - General Chief complaint: Abdominal Pain Stated complaint: ABD PAIN Time Seen by Provider: 05/17/19 14:16 Source: patient, EMS (ems notes not available at time of chart dictation), RN notes reviewed, old records reviewed Mode of arrival: Stretcher Limitations: No Limitations, Other (patient appears to be intoxicated) - History of Present Illness Initial comments: This is a 59-year-old gentleman. This patient is not known to this provider previously. His past medical history includes type 2 diabetes, hypertension, tobacco use, alcohol dependency, chronic pleural disease. Patient recently admitted to this hospital, and has had extensive workup. He also has a history of alcoholism. He presents to the ER with multiple complaints. He is a poor historian. He complains of left upper quadrant abdominal pain, left-sided back pain, coughing up, nausea, sore throat. He denies chest pain. He denies exertional shortness of breath. As per verbal report from nursing staff who is taking care of the patient, the patient is quite calm when there is nobody in front of his room, but, when there are people in front of his room, he becomes quite animated. The patient is not endorsed any complaints of homicidality or suicidality. He denies urinary symptoms at this time. He is not accompanied by any friends or family at this time. -: Gradual, hour(s) Location: mouth, back, abdomen Severity scale (0 -10): 10 Quality: aching Consistency: other (patient not able to describe consistency) Improves with: none Worsens with: none - Related Data Home Medications Medication Instructions Recorded Confirmed Last Taken Esomeprazole Magnesium [Nexium 20 mg PO DAILY 04/20/19 05/12/19 05/11/19 24Hr] metFORMIN [Glucophage] 500 mg PO BID 04/20/19 05/12/19 05/11/19 Lisinopril [Zestril] 5 mg PO QDAY 05/12/19 05/12/19 05/11/19 Previous Rx's Medication Instructions Recorded Last Taken Type Multivitamin with Folic Acid [Cvs 400 mcg PO QDAY #30 tablet 05/17/19 Unknown Rx One Daily Essential Tablet] chlordiazePOXIDE [Librium] 25 mg PO Q6H PRN #25 capsule 05/17/19 Unknown Rx Allergies Allergy/AdvReac Type Severity Reaction Status Date / Time No Known Allergies Allergy Verified 12/07/14 01:47 ED Review of Systems ROS: Stated complaint: ABD PAIN Other details as noted in HPI Constitutional: denies: fever Eyes: denies: eye discharge ENT: throat pain, congestion Respiratory: cough Cardiovascular: denies: syncope Genitourinary: denies: dysuria Musculoskeletal: back pain, arthralgia Skin: denies: lesions Psychiatric: anxiety. denies: suicidal thoughts ED Past Medical Hx - Past Medical History Hx Hypertension: Yes Hx Heart Attack/AMI: No Hx Congestive Heart Failure: No Hx Diabetes: Yes Hx Deep Vein Thrombosis: No Hx GERD: Yes Hx Liver Disease: No Hx Asthma: No Hx COPD: No - Surgical History Hx Coronary Stent: No Hx Pacemaker: No Hx Internal Defibrillator: No - Social History Smoking Status: Current Every Day Smoker Substance Use Type: Alcohol - Medications Home Medications: Home Medications Medication Instructions Recorded Confirmed Last Taken Type Esomeprazole Magnesium [Nexium 20 mg PO DAILY 04/20/19 05/12/19 05/11/19 History 24Hr] metFORMIN [Glucophage] 500 mg PO BID 04/20/19 05/12/19 05/11/19 History Lisinopril [Zestril] 5 mg PO QDAY 05/12/19 05/12/19 05/11/19 History Multivitamin with Folic Acid [Cvs 400 mcg PO QDAY #30 tablet 05/17/19 Unknown Rx One Daily Essential Tablet] chlordiazePOXIDE [Librium] 25 mg PO Q6H PRN #25 capsule 05/17/19 Unknown Rx ED Physical Exam - General Limitations: No Limitations General appearance: alert, in no apparent distress, anxious - Head Head exam: Present: atraumatic, normocephalic - Eye Eye exam: Present: normal appearance, EOMI. Absent: nystagmus - ENT ENT exam: Present: normal orophraynx, mucous membranes moist, normal external ear exam - Neck Neck exam: Present: normal inspection, full ROM. Absent: tenderness, meningismus - Respiratory Respiratory exam: Present: normal lung sounds bilaterally. Absent: respiratory distress - Cardiovascular Cardiovascular Exam: Present: regular rate, normal rhythm, normal heart sounds. Absent: bradycardia, tachycardia, irregular rhythm, systolic murmur, diastolic murmur, rubs, gallop - GI/Abdominal GI/Abdominal exam: Present: soft, normal bowel sounds. Absent: distended, tenderness, guarding, rebound, rigid - Rectal Rectal exam: Present: deferred - Extremities Exam Extremities exam: Present: normal inspection, full ROM, other (2+ pulses noted in the bilateral upper, lower extremities. Compartments soft. No long bony tenderness. The pelvis is stable.). Absent: pedal edema, joint swelling, calf tenderness - Back Exam Back exam: Present: normal inspection, full ROM. Absent: tenderness, CVA tenderness (R), CVA tenderness (L), paraspinal tenderness, vertebral tenderness - Neurological Exam Neurological exam: Present: alert, normal gait, other (Extraocular movements intact. Tongue midline. No facial droop. Facial sensation intact to light touch in the V1, V2, V3 distribution bilaterally. 5 and 5 strength in 4 extre mities.. Sensation is intact to light touch in 4 extremities.). Absent: motor sensory deficit - Psychiatric Psychiatric exam: Present: anxious - Skin Skin exam: Present: warm, dry, intact, normal color. Absent: rash ED Course Vital Signs 05/17/19 05/17/19 05/17/19 13:34 13:43 14:17 Temperature 97.9 F 97.9 F Pulse Rate 100 H 100 H Respiratory 20 20 20 Rate Blood Pressure Blood Pressure 152/90 [Left] O2 Sat by Pulse 100 100 100 Oximetry 05/17/19 05/17/19 05/17/19 16:01 18:11 19:18 Temperature 97.1 F L 97.9 F 98.0 F Pulse Rate 92 H 96 H 79 Respiratory 20 20 18 Rate Blood Pressure Blood Pressure 141/77 151/89 126/76 [Left] O2 Sat by Pulse 100 99 99 Oximetry 05/17/19 05/18/19 20:14 03:28 Temperature 98.6 F Pulse Rate 79 93 H Respiratory 16 Rate Blood Pressure 126/76 Blood Pressure 124/74 [Left] O2 Sat by Pulse 99 Oximetry - Reevaluation(s) Reevaluation #1: 05/17/19 16:32 Differential diagnosis, including not limited to: GERD, gastritis, hiatal hernia, pancreatitis, alcohol intoxication, urinary tract infection, renal colic Assessment and plan: 59-year-old gentleman, multiple visits to this hospital for multiple complaints, intoxicated today clinically, no evidence of head trauma, found to have blood alcohol level of 0.33, remainder screening laboratory studies otherwise unremarkable. Patient will be placed on ER hold. As needed nonsedating medications for pain have been ordered. A CT scan of the brain, abdomen pelvis ordered. We will need to await clinical sobriety. Reevaluation #2: 05/17/19 19:08 CT scan of the abdomen and pelvis is negative for acute disease. Patient will be observed in the emergency room pending clinical sobriety, or until a sober and responsible adult can come by and pick him up. Care will be transferred to the overnight physician, Dr. Ron Moctezuma, to monitor patient for clinical sobriety and reassessment for suitability for discharge. ED Medical Decision Making - Lab Data Result diagrams: 05/17/19 14:18 05/17/19 14:18 Vital Signs 05/17/19 05/17/19 05/17/19 13:34 13:43 14:17 Temperature 97.9 F 97.9 F Pulse Rate 100 H 100 H Respiratory 20 20 20 Rate Blood Pressure 152/90 [Left] O2 Sat by Pulse 100 100 100 Oximetry Lab Results 05/17/19 05/17/19 05/17/19 Range/Units 14:18 14:18 14:30 WBC 6.4 (4.5-11.0) K/mm3 RBC 4.26 (3.65-5.03) M/mm3 Hgb 11.8 (11.8-15.2) gm/dl Hct 35.3 L (35.5-45.6) % MCV 83 L (84-94) fl MCH 28 (28-32) pg MCHC 33 (32-34) % RDW 15.2 (13.2-15.2) % Plt Count 237 (140-440) K/mm3 Lymph % (Auto) 40.2 H (13.4-35.0) % Page % (Auto) 5.3 (0.0-7.3) % Eos % (Auto) 1.2 (0.0-4.3) % Baso % (Auto) 0.9 (0.0-1.8) % Lymph # 2.6 (1.2-5.4) K/mm3 Page # 0.3 (0.0-0.8) K/mm3 Eos # 0.1 (0.0-0.4) K/mm3 Baso # 0.1 (0.0-0.1) K/mm3 Seg Neutrophils % 52.4 (40.0-70.0) % Seg Neutrophils # 3.4 (1.8-7.7) K/mm3 Sodium 144 (137-145) mmol/L Potassium 3.9 (3.6-5.0) mmol/L Chloride 107.0 (98-107) mmol/L Carbon Dioxide 23 (22-30) mmol/L Anion Gap 18 mmol/L BUN 16 (9-20) mg/dL Creatinine 0.7 L (0.8-1.5) mg/dL Estimated GFR > 60 ml/min BUN/Creatinine Ratio 23 % Glucose 173 H (75-100) mg/dL Calcium 8.6 (8.4-10.2) mg/dL Urine Color Colorless (Yellow) Urine Turbidity Clear (Clear) Urine pH 7.0 (5.0-7.0) Ur Specific [place] 1.004 (1.003-1.030) Urine Protein <15 mg/dl (Negative) mg/dL Urine Glucose (UA) Neg (Negative) mg/dL Urine Ketones Neg (Negative) mg/dL Urine Blood Neg (Negative) Urine Nitrite Neg (Negative) Urine Bilirubin Neg (Negative) Urine Urobilinogen < 2.0 (<2.0) mg/dL Ur Leukocyte Esterase Neg (Negative) Urine WBC (Auto) 1.0 (0.0-6.0) /HPF Urine RBC (Auto) 1.0 (0.0-6.0) /HPF Urine Bacteria (Auto) 1+ (Negative) /HPF Lab Results 05/17/19 05/17/19 05/17/19 Range/Units 14:18 14:18 14:30 WBC 6.4 (4.5-11.0) K/mm3 RBC 4.26 (3.65-5.03) M/mm3 Hgb 11.8 (11.8-15.2) gm/dl Hct 35.3 L (35.5-45.6) % MCV 83 L (84-94) fl MCH 28 (28-32) pg MCHC 33 (32-34) % RDW 15.2 (13.2-15.2) % Plt Count 237 (140-440) K/mm3 Lymph % (Auto) 40.2 H (13.4-35.0) % Page % (Auto) 5.3 (0.0-7.3) % Eos % (Auto) 1.2 (0.0-4.3) % Baso % (Auto) 0.9 (0.0-1.8) % Lymph # 2.6 (1.2-5.4) K/mm3 Page # 0.3 (0.0-0.8) K/mm3 Eos # 0.1 (0.0-0.4) K/mm3 Baso # 0.1 (0.0-0.1) K/mm3 Seg Neutrophils % 52.4 (40.0-70.0) % Seg Neutrophils # 3.4 (1.8-7.7) K/mm3 Sodium 144 (137-145) mmol/L Potassium 3.9 (3.6-5.0) mmol/L Chloride 107.0 (98-107) mmol/L Carbon Dioxide 23 (22-30) mmol/L Anion Gap 18 mmol/L BUN 16 (9-20) mg/dL Creatinine 0.7 L (0.8-1.5) mg/dL Estimated GFR > 60 ml/min BUN/Creatinine Ratio 23 % Glucose 173 H (75-100) mg/dL Calcium 8.6 (8.4-10.2) mg/dL Magnesium (1.7-2.3) mg/dL Total Creatine Kinase (55-170) units/L Lipase (13-60) units/L Urine Color Colorless (Yellow) Urine Turbidity Clear (Clear) Urine pH 7.0 (5.0-7.0) Ur Specific [place] 1.004 (1.003-1.030) Urine Protein <15 mg/dl (Negative) mg/dL Urine Glucose (UA) Neg (Negative) mg/dL Urine Ketones Neg (Negative) mg/dL Urine Blood Neg (Negative) Urine Nitrite Neg (Negative) Urine Bilirubin Neg (Negative) Urine Urobilinogen < 2.0 (<2.0) mg/dL Ur Leukocyte Esterase Neg (Negative) Urine WBC (Auto) 1.0 (0.0-6.0) /HPF Urine RBC (Auto) 1.0 (0.0-6.0) /HPF Urine Bacteria (Auto) 1+ (Negative) /HPF Salicylates (2.8-20.0) mg/dL Acetaminophen (10.0-30.0) ug/mL Plasma/Serum Alcohol (0-0.07) % 05/17/19 05/17/19 05/17/19 Range/Units 15:15 15:15 15:15 WBC (4.5-11.0) K/mm3 RBC (3.65-5.03) M/mm3 Hgb (11.8-15.2) gm/dl Hct (35.5-45.6) % MCV (84-94) fl MCH (28-32) pg MCHC (32-34) % RDW (13.2-15.2) % Plt Count (140-440) K/mm3 Lymph % (Auto) (13.4-35.0) % Page % (Auto) (0.0-7.3) % Eos % (Auto) (0.0-4.3) % Baso % (Auto) (0.0-1.8) % Lymph # (1.2-5.4) K/mm3 Page # (0.0-0.8) K/mm3 Eos # (0.0-0.4) K/mm3 Baso # (0.0-0.1) K/mm3 Seg Neutrophils % (40.0-70.0) % Seg Neutrophils # (1.8-7.7) K/mm3 Sodium (137-145) mmol/L Potassium (3.6-5.0) mmol/L Chloride (98-107) mmol/L Carbon Dioxide (22-30) mmol/L Anion Gap mmol/L BUN (9-20) mg/dL Creatinine (0.8-1.5) mg/dL Estimated GFR ml/min BUN/Creatinine Ratio % Glucose (75-100) mg/dL Calcium (8.4-10.2) mg/dL Magnesium 1.90 (1.7-2.3) mg/dL Total Creatine Kinase 212 H (55-170) units/L Lipase 19 (13-60) units/L Urine Color (Yellow) Urine Turbidity (Clear) Urine pH (5.0-7.0) Ur Specific [place] (1.003-1.030) Urine Protein (Negative) mg/dL Urine Glucose (UA) (Negative) mg/dL Urine Ketones (Negative) mg/dL Urine Blood (Negative) Urine Nitrite (Negative) Urine Bilirubin (Negative) Urine Urobilinogen (<2.0) mg/dL Ur Leukocyte Esterase (Negative) Urine WBC (Auto) (0.0-6.0) /HPF Urine RBC (Auto) (0.0-6.0) /HPF Urine Bacteria (Auto) (Negative) /HPF Salicylates < 0.3 L (2.8-20.0) mg/dL Acetaminophen < 5.0 L (10.0-30.0) ug/mL Plasma/Serum Alcohol (0-0.07) % 05/17/19 Range/Units 15:15 WBC (4.5-11.0) K/mm3 RBC (3.65-5.03) M/mm3 Hgb (11.8-15.2) gm/dl Hct (35.5-45.6) % MCV (84-94) fl MCH (28-32) pg MCHC (32-34) % RDW (13.2-15.2) % Plt Count (140-440) K/mm3 Lymph % (Auto) (13.4-35.0) % Page % (Auto) (0.0-7.3) % Eos % (Auto) (0.0-4.3) % Baso % (Auto) (0.0-1.8) % Lymph # (1.2-5.4) K/mm3 Page # (0.0-0.8) K/mm3 Eos # (0.0-0.4) K/mm3 Baso # (0.0-0.1) K/mm3 Seg Neutrophils % (40.0-70.0) % Seg Neutrophils # (1.8-7.7) K/mm3 Sodium (137-145) mmol/L Potassium (3.6-5.0) mmol/L Chloride (98-107) mmol/L Carbon Dioxide (22-30) mmol/L Anion Gap mmol/L BUN (9-20) mg/dL Creatinine (0.8-1.5) mg/dL Estimated GFR ml/min BUN/Creatinine Ratio % Glucose (75-100) mg/dL Calcium (8.4-10.2) mg/dL Magnesium (1.7-2.3) mg/dL Total Creatine Kinase (55-170) units/L Lipase (13-60) units/L Urine Color (Yellow) Urine Turbidity (Clear) Urine pH (5.0-7.0) Ur Specific [place] (1.003-1.030) Urine Protein (Negative) mg/dL Urine Glucose (UA) (Negative) mg/dL Urine Ketones (Negative) mg/dL Urine Blood (Negative) Urine Nitrite (Negative) Urine Bilirubin (Negative) Urine Urobilinogen (<2.0) mg/dL Ur Leukocyte Esterase (Negative) Urine WBC (Auto) (0.0-6.0) /HPF Urine RBC (Auto) (0.0-6.0) /HPF Urine Bacteria (Auto) (Negative) /HPF Salicylates (2.8-20.0) mg/dL Acetaminophen (10.0-30.0) ug/mL Plasma/Serum Alcohol 0.33 H (0-0.07) % - EKG Data -: EKG Interpreted by Tx EKG shows normal: sinus rhythm Rate: normal - EKG Data 05/17/19 16:31 This is a sinus rhythm, 93 bpm, normal axis, QTC 431 ms, left ventricular hypertrophy, poor R progression, the EKG is abnormal, the EKG is not consistent with ST elevation myocardial infarction, the EKG is unchanged from prior EKG - Radiology Data Radiology results: report reviewed, image reviewed Referring Physician: KWASI HERNANDEZ Patient Name: JORGE ANG Date of : 1960 Sex: Male Report Date: 2019-05-12 Report Status: [place] [address] Cat Scan Report Signed Patient: JORGE ANG MR#: [id number] : 1960 Acct:[id number] Age/Sex: 59 / M ADM Date: 05/12/19 Loc: ED Attending Dr: Ordering Physician: KWASI HERNANDEZ DO Date of Service: 05/12/19 Procedure(s): CT abdomen pelvis wo con Accession Number(s): [id number] cc: KWASI HERNANDEZ DO CT ABDOMEN AND PELVIS WITHOUT CONTRAST INDICATION / CLINICAL INFORMATION: fall, left flank pain. TECHNIQUE: Axial CT images were obtained through the abdomen and pelvis without IV contrast. All CT scans at this location are performed usin g CT dose reduction for ALARA by means of automated exposure control. COMPARISON: CT scan dated 04/20/2019 FINDINGS: LOWER CHEST: Scarring is noted in the left lung base. There are calcified pleural plaques in the left base. LIVER: Unchanged GALLBLADDER: No significant abnormality. BILE DUCTS: No significant abnormality. PANCREAS: No significant abnormality. SPLEEN: No significant abnormality. ADRENALS: No significant abnormality. RIGHT KIDNEY and URETER: No significant abnormality. LEFT KIDNEY and URETER: No significant abnormality. STOMACH and SMALL BOWEL: No significant abnormality. COLON: Moderate amount stool is noted in the colon. APPENDIX: No significant abnormality. PERITONEUM: No free fluid. No free air. No fluid collection. LYMPH NODES: No significant adenopathy. AORTA and ARTERIES: Atherosclerotic calcifications are noted in the aorta and iliac arteries. The aorta is normal in diameter. IVC and VEINS: No significant abnormality. URINARY BLADDER: No significant abnormality. REP RODUCTIVE ORGANS: No significant abnormality. ADDITIONAL FINDINGS: None. SKELETAL SYSTEM: No acute osseous abnormalities are seen. IMPRESSION: 1. There is no obstruction, inflammation, or free air. No acute abnormality is seen in the abdomen or pelvis. No intra-abdominal organ injury is identified. Signer Name: Carlos Penaloza MD Signed: 05/12/2019 4:22 PM Workstation Name: [id number] Transcribed By: Dictated By: Carlos Penaloza MD Electronically Authenticated By: Carlos Penaloza MD Signed Date/Time: 05/12/19 1622 [facility] [address] [place] [address] Cat Scan Report Signed Patient: JORGE ANG MR#: [id number] : 1960 Acct:[id number] Age/Sex: 59 / M ADM Date: 04/19/19 Loc: ED Attending Dr: Ordering Physician: MITRA MARY MD Date of Service: 04/20/19 Procedure(s): CT abdomen pelvis w con Accession Number(s): [id number] cc: MITRA MARY MD CT chest w con, CT abdomen pelvis w con INDICATION / CLINICAL INFORMATION: Chest Pain, abdomen and pelvic pain, elevated liver function tests. TECHNIQUE: 100 cc of Omnipaque 350 was administered intravenously All CT scans at this location are performed using CT dose reduction for ALARA by means of automated exposure control. COMPARISON: None available. FINDINGS: Diffuse airspace disease is seen in the left apex there are a few bulla seen lower in the left lung. No other significant parenchymal abnormality is identified. No enlarged mediastinal or hilar lymph nodes are identified. No significant skeletal abnormality is seen in the thorax. In the abdomen, no free fluid is seen. There are some fluid-filled loops of small bowel present. Diffuse fatty infiltration is present in the liver without focal abnormality. The spleen, kidneys, pancreas and adrenal glands are normal. No enlarged retroperitoneal lymph nodes are seen. Diffuse atherosclerotic changes present without evidence of an aneurysm. In the pelvis, no free fluid is seen. No enlarged lymph nodes are identified. The bladder and the appendix are normal. No significant skeletal abnormality is identified. IMPRESSION: 1. Airspace disease in the left apex. There are a few bulla present more inferiorly in the left lung 2. Fluid-filled loops of small bowel could represent mild enteritis 3. Diffuse fatty infiltration in the liver without focal abnormality 4. Atherosclerotic change without evidence of an aneurysm Signer Name: Shane Baker MD FACR Signed: 04/20/2019 4:31 AM Workstation Name: [id number] Transcribed By: MS Dictated By: Shane Baker MD Electronically Authenticated By: Shane Baker MD Signed Date/Time: 04/20/19 0431 Print Report Referring Physician: VENKATESH DURAND Patient Name: JORGE ANG Date of : 1960 Sex: Male Report Date: 2019-05-17 Report Status: Finalized Findings [address] [address] XRay Report Signed Patient: JORGE ANG MR#: [id number] : 1960 Acct:[id number] Age/Sex: 59 / M ADM Date: 05/17/19 Loc: ED Attending Dr: Ordering Physician: VENKATESH DURAND MD Date of Service: 05/17/19 Procedure(s): XR chest 1V ap Accession Number(s): [id number] cc: VENKATESH DURAND MD Fluoro T derek In Minutes: CHEST 1 VIEW 3:28 PM INDICATION / CLINICAL INFORMATION: Cough and back pain. Left abdominal pain. COMPARISON: 04/20/2019. FINDINGS: SUPPORT DEVICES: None. HEART / MEDIASTINUM: The heart size and pulmonary vasculature are normal. LUNGS / PLEURA: There is localized pleuroparenchymal disease in the left upper hemithorax, mildly improved since the prior exam. The right lung is clear. No pneumothorax. ADDITIONAL FINDINGS: No significant additional findings. IMPRESSION: Improving pleuroparenchymal disease in the left upper hemithorax. Signer Name: Ivan Sandoval MD Signed: 05/17/2019 4:03 PM Workstation Name: [id number] Transcribed By: RT Dictated By: Ivan Sandoval MD Electronically Authenticated By: Ivan Sandoval MD Signed Date/Time: 05/17/19 4785 BRAIN / INTRACRANIAL CONTENTS: No acute hemorrhage, mass effect, midline shift, or hydrocephalus. No appreciable acute large territorial or lacunar infarct. Chronic appearing lacunar infarct is seen in the right caudate head. There is mild age commensurate ventricular and cisternal prominence without discrete focal brain atrophy. ORBITS: No significant abnormality of visualized orbits. SINUSES / MASTOIDS: No significant abnormality of visualized sinuses and mastoid air cells. ADDITIONAL FINDINGS: None. IMPRESSION: 1. No acute intracranial abnormality. 2. Chronic appearing small lacunar infarct in the right caudate nucleus head. Signer Name: Macho John MD Signed: 05/17/2019 5:59 PM Workstation Name: [id number] Transcribed By: WILLIE Dictated By: Macho John MD Electronically Authenticated By: Macho John MD Signed Date/Time: 05/17/19 5029 Critical care attestation.: If time is entered above; I have spent that time in minutes in the direct care of this critically ill patient, excluding procedure time. ED Disposition Clinical Impression: Alcohol intoxication, Flank pain Disposition: DC-01 TO HOME OR SELFCARE Is pt being admited?: No Does the pt Need Aspirin: No Condition: Stable Additional Instructions: Recommend patient discontinue or minimize alcohol consumption. Avoid consumption of Motrin, ibuprofen, Naprosyn, Aleve, acetaminophen, Tylenol. Patient may take [id number] antacid medication such as Pepcid, Protonix, Maalox as needed for sensation of pain. Rest, avoid heavy lifting, and avoid strenuous physical activity. Return to the emergency room right away with [place], worsened or different symptoms, or symptoms not present on the initial emergen cy room evaluation. Recommend follow-up with an outpatient primary care doctor within the next 7-10 days. If patient is motivated to discontinue alcohol consumption, he may take the Librium medication as needed for sensation of alcohol withdrawal, he should follow up with a primary care doctor, psychiatrist, for mental health department for further evaluation for possible detox. Prescriptions: Multivitamin with Folic Acid [[facility] One Daily Essential Tablet] 400 mcg PO QDAY #30 tablet chlordiazePOXIDE [Librium] 25 mg PO Q6H PRN #25 capsule PRN Reason: Alcohol Withdrawal Referrals: TRICIA FRANKLIN MD [Primary Care Provider] - 3-5 Days [facility] [Outside] - 3-5 Days
[2019-05-17] MEDS ORDERED: PEPCID PO ONE (15:10)
[2019-05-17] MEDS ORDERED: CARAFATE PO ONE (15:10)
[2019-05-17] MEDS ORDERED: ZOFRAN ORAL LIQ PO ONE (15:10)
[2019-05-17] MEDS ORDERED: ZOFRAN ODT ONE (15:44)
[2019-05-17] MEDS ORDERED: ZOFRAN ODT PO ONE (15:45)
--- NOTE | 2019-05-17 16:08 | XRay Report ---
CHEST 1 VIEW 3:28 PM INDICATION / CLINICAL INFORMATION: Cough and back pain. Left abdominal pain. COMPARISON: 04/20/2019. FINDINGS: SUPPORT DEVICES: None. HEART / MEDIASTINUM: The heart size and pulmonary vasculature are normal. LUNGS / PLEURA: There is localized pleuroparenchymal disease in the left upper hemithorax, mildly imp roved since the prior exam. The right lung is clear. No pneumothorax. ADDITIONAL FINDINGS: No significant additional findings. IMPRESSION: Improving pleuroparenchymal disease in the left upper hemithorax. Signer Name: Ivan Sandoval MD Signed: 05/17/2019 4:03 PM Workstation Name: [id number]
[2019-05-17] MEDS ORDERED: HALDOL IM PRN (16:28)
[2019-05-17] MEDS ORDERED: ATIVAN IM PRN (16:28)
[2019-05-17] MEDS ORDERED: ATIVAN IV PRN ×2 (16:29)
[2019-05-17] MEDS ORDERED: ATIVAN PO PRN (16:29)
[2019-05-17] MEDS ORDERED: LIBRIUM PO PRN (16:29)
[2019-05-17] MEDS ORDERED: FOLVITE PO SCH (17:00)
[2019-05-17] MEDS ORDERED: THERAGRAN Tab PO SCH (17:00)
--- NOTE | 2019-05-17 18:03 | Cat Scan Report ---
CT head/brain wo con INDICATION: Possible head trauma, alcohol intoxication. TECHNIQUE: Routine CT head without contrast. All CT scans at this location are performed using CT dos e reduction for ALARA by means of automated exposure control. COMPARISON: None. FINDINGS: BRAIN / INTRACRANIAL CONTENTS: No acute hemorrhage, mass effect, midline shift, or hydrocephalus. No appreciable acute large territorial or lacunar infarct. Chronic appearing lacunar infarct is seen in the right caudate head. There is mild age commensurate ventricular and cisternal prominence without d iscrete focal brain atrophy. ORBITS: No significant abnormality of visualized orbits. SINUSES / MASTOIDS: No significant abnormality of visualized sinuses and mastoid air cells. ADDITIONAL FINDINGS: None. IMPRESSION: 1. No acute intracranial abnormality. 2. Chronic appearing small lacunar infarct in the right caudate nucleus head. Signer Name: Macho John MD Signed: 05/17/2019 5:59 PM Workstation Name: [id number]
--- NOTE | 2019-05-17 18:52 | Cat Scan Report ---
CT abdomen pelvis wo con INDICATION / CLINICAL INFORMATION: abd pain. TECHNIQUE: All CT scans at this location are performed using CT dose reduction for ALARA by means of automated e xposure control. COMPARISON: 05/12/2019 FINDINGS: Limited lower thoracic images show no acute disease. ABDOMEN: The gallbladder, liver, spleen, pancreas and kidneys are normal. No mesenteric or retroperitoneal adenopathy. Adrenal glands are normal bilaterally. No small bowel abnormality. Pelvis: The appendix is normal. No inflammatory changes or dependent fluid collections are seen in the pelvis. No skeletal abnormality. IMPRESSION: 1. No acute abnormality. Signer Name: Govind Cade MD Signed: 05/17/2019 6:48 PM Workstation Name: [id number]
[2019-05-17] MEDS ORDERED: NON-FORMULARY (Esomeprazole Magnesium [Nexium 24hr] 20 MG) PO SCH (19:15)
[2019-05-17] MEDS ORDERED: PROTONIX PO SCH (19:30)
[2019-05-17] MEDS ORDERED: ZESTRIL PO SCH (20:00)
[2019-05-18 03:29] VITALS: BP 124/74
== END 2019-05-18 06:39 | disposition home or self-care (01) ==
LOC: ED 13:21
DX: F10.129 Alcohol abuse with intoxication, unspecified (principal); R10.9 Unspecified abdominal pain; R51 Headache; I10 Essential (primary) hypertension; E11.9 Type 2 diabetes mellitus without complications; K21.9 Gastro-esophageal reflux disease without esophagitis; F17.200 Nicotine dependence, unspecified, uncomplicated; Z79.899 Other long term (current) drug therapy
CPT/HCPCS: 36415; 70450; 71045; 74176; 80048; 80320; 81001; 82550; 83690; 83735; 85025; 93005; 93010; G0480; Q0162

== ENCOUNTER 2019-07-11 14:22 | Emergency (ER) | payer SELFPAY ==
[2019-07-11] MEDS ORDERED: NACL 0.9% 1000 ML 1,000 ML IV ONE (15:08)
[2019-07-11] MEDS ORDERED: PEPCID IV ONE (15:08)
[2019-07-11] MEDS ORDERED: ZOFRAN IV ONE (15:08)
[2019-07-11] MEDS ORDERED: NACL 0.9% 1000 ML 1,000 ML ONE (15:15)
--- NOTE | 2019-07-11 15:50 | Emergency Department Report ---
ED General Adult HPI - General Chief complaint: Abdominal Pain Stated complaint: ABD PAIN/CHEST PAIN Time Seen by Provider: 07/11/19 14:59 Source: patient, EMS ( EMS documentation not available at time of chart dictation ), RN notes reviewed, old records reviewed Mode of arrival: Stretcher Limitations: No Limitations, Other (the patient is a poor historian) - History of Present Illness Initial comments: This is a 59-year-old gentleman. I have evaluated this patient in the past. Past medical history includes type 2 diabetes, hypertension, tobacco use, alcohol dependency, chronic pleural disease. Patient was admitted to this hospital over the summer. Had extensive workup, including CT scan chest, CT scan abdomen pelvis, and nuclear cardiac stress test. The last, saw him, he presented intoxicated. Today, he presents to the ER with a complaint of nontraumatic abdominal pain. The abdominal pain is epigastric. He indicates that it started this morning. He indicates that it is sharp and throbbing. He indicates it does not radiate anywhere. He does not complain of chest pain. He has chronic shortness of breath. He denies DVT, and pulmonary embolism risk factors. He endorses initial clear and white emesis, followed by pink emesis. He denies black stool, bright red blood per rectum. He denies testicular pain and urinary symptoms. He makes no endorsement of homicidality or suicidality. He is asking for pain medicine. He reports that he consumed alcohol yesterday, but not today. -: Gradual Location: abdomen Radiation: non-radiation Severity scale (0 -10): 10 Quality: other Consistency: other Improves with: other Worsens with: other - Related Data Home Medications Medication Instructions Recorded Confirmed Last Taken Lisinopril [Zestril] 5 mg PO QDAY 05/12/19 05/12/19 05/11/19 Previous Rx's Medication Instructions Recorded Last Taken Type Amoxicillin/Potassium Clav 1 each PO BID #20 tablet 07/11/19 Unknown Rx [Augmentin 875-125 Tablet] Esomeprazole Magnesium [Nexium 20 mg PO DAILY #30 tab 07/11/19 Unknown Rx 24Hr] Metoclopramide [Reglan] 10 mg PO QID PRN #30 tab 07/11/19 Unknown Rx Multivitamin with Folic Acid [Cvs 400 mcg PO QDAY #30 tablet 07/11/19 Unknown Rx One Daily Essential Tablet] chlordiazePOXIDE [Librium] 25 mg PO Q6H PRN #25 capsule 07/11/19 Unknown Rx Allergies Allergy/AdvReac Type Severity Reaction Status Date / Time No Known Allergies Allergy Verified 12/07/14 01:47 ED Review of Systems ROS: Stated complaint: ABD PAIN/CHEST PAIN Other details as noted in HPI Constitutional: denies: fever Eyes: denies: eye discharge ENT: denies: congestion Respiratory: denies: wheezing Cardiovascular: denies: chest pain Gastrointestinal: abdominal pain, nausea, vomiting Genitourinary: denies: urgency, dysuria Musculoskeletal: myalgia Neurological: denies: as per HPI, weakness Hematological/Lymphatic: denies: easy bleeding ED Past Medical Hx - Past Medical History Previous Medical History?: Yes Hx Hypertension: Yes Hx Heart Attack/AMI: No Hx Congestive Heart Failure: No Hx Diabetes: Yes Hx Deep Vein Thrombosis: No Hx GERD: Yes Hx Liver Disease: No Hx Asthma: No Hx COPD: No Additional medical history: ETOH - Surgical History Hx Coronary Stent: No Hx Pacemaker: No Hx Internal Defibrillator: No - Social History Smoking Status: Current Every Day Smoker Substance Use Type: Alcohol - Medications Home Medications: Home Medications Medication Instructions Recorded Confirmed Last Taken Type Lisinopril [Zestril] 5 mg PO QDAY 05/12/19 05/12/19 05/11/19 History Amoxicillin/Potassium Clav 1 each PO BID #20 tablet 07/11/19 Unknown Rx [Augmentin 875-125 Tablet] Esomeprazole Magnesium [Nexium 20 mg PO DAILY #30 tab 07/11/19 Unknown Rx 24Hr] Metoclopramide [Reglan] 10 mg PO QID PRN #30 tab 07/11/19 Unknown Rx Multivitamin with Folic Acid [Cvs 400 mcg PO QDAY #30 tablet 07/11/19 Unknown Rx One Daily Essential Tablet] chlordiazePOXIDE [Librium] 25 mg PO Q6H PRN #25 capsule 07/11/19 Unknown Rx ED Physical Exam - General Limitations: No Limitations General appearance: alert, appears intoxicated - Head Head exam: Present: atraumatic, normocephalic - Eye Eye exam: Present: normal appearance, EOMI - ENT ENT exam: Present: normal exam, normal orophraynx, mucous membranes moist, normal external ear exam - Neck Neck exam: Present: normal inspection, full ROM. Absent: tenderness, meningismus - Respiratory Respiratory exam: Present: decreased breath sounds. Absent: respiratory distress - Cardiovascular Cardiovascular Exam: Present: normal rhythm, tachycardia, normal heart sounds. Absent: systolic murmur, diastolic murmur, rubs, gallop - GI/Abdominal GI/Abdominal exam: Present: soft, tenderness, other (there is epigastric tenderness, there is no rebound, guarding or peritoneal sign). Absent: distended, guarding, rebound, rigid, pulsatile mass - Rectal Rectal exam: Present: deferred - Extremities Exam Extremities exam: Present: normal inspection, full ROM, other (2+ pulses noted in the bilateral upper, lower extremities. There is no long bone tenderness. Musculoskeletal compartments are soft. The pelvis is stable.). Absent: pedal edema, calf tenderness - Back Exam Back exam: Present: normal inspection, full ROM. Absent: tenderness, CVA tenderness (R), CVA tenderness (L), paraspinal tenderness, vertebral tenderness - Neurological Exam Neurological exam: Present: alert, other (there is no facial droop. The tongue is midline. Extraocular movements are intact bilaterally. Patient speaking in full complete sentences. Shoulder shrug is intact bilaterally. Hearing is gr ossly intact bilaterally. Visual acuity intact to finger counting and color perception at a close distance. 5/5 strength 4 extremities. Sensation intact to light touch in 4 extremities.) - Psychiatric Psychiatric exam: Present: anxious - Skin Skin exam: Present: warm, dry, intact, normal color. Absent: rash ED Course Vital Signs 07/11/19 07/11/19 07/11/19 14:57 15:58 18:26 Temperature 98.5 F Pulse Rate 102 H 93 H 98 H Respiratory 18 17 18 Rate Blood Pressure 148/88 131/81 136/82 [Right] O2 Sat by Pulse 99 93 99 Oximetry 07/11/19 07/12/19 07/12/19 21:00 01:00 03:25 Temperature 98.0 F 97.9 F Pulse Rate 97 H 87 97 H Respiratory 17 16 17 Rate Blood Pressure 152/88 155/78 156/89 [Right] O2 Sat by Pulse 100 100 100 Oximetry - Reevaluation(s) Reevaluation #1: 07/11/19 15:48 Differential diagnosis, including not limited to: Pancreatitis, GERD, gastritis, alcohol intoxication, biliary disease Assessment and plan: 59-year-old gentleman with history of alcohol dependence, likely intoxicated, presenting with recurrent abdominal pain, suspect alcohol related complication, either pancreatitis, biliary disease, or alcohol induced gastritis. The patient is afebrile with reassuring vital signs, and his tachycardia has resolved at this time. He is pleasant, calm and cooperative. Does not meet 1013 criteria at this time. We will treat his symptoms with nonsedating medications, obtain screening laboratory studies, and then CT scan of the abdomen pelvis. The test would not be ordered and toes laboratory studies results, to determine patient's suitability for IV contrast. Reevaluation #2: 07/11/19 18:49 Patient in no acute distress. Care team informed me that the patient ate a large meal. Reevaluation #3: 07/11/19 21:05 No active vomiting. Patient obviously able to tolerate oral feeds. CT scan sug gests nonspecific possible right-sided ascending colitis. X-ray of chest suggest possible pneumonia. Patient not significantly hypoxic. He appears quite comfortable. Patient suitable for trial of oral outpatient antibiotic management, once clinically sober. Reevaluation #4: 07/11/19 23:53 Patient tolerating liquid feeds. His blood alcohol level is still somewhat fahad vated. Plan to discharge the patient when clinically sober. Care will be transferred to the overnight physician, Dr. Carlito Bowling to d/c when clinically sober ED Medical Decision Making - Lab Data Result diagrams: 07/11/19 15:22 07/11/19 15:22 Vital Signs 07/11/19 14:57 Temperature 98.5 F Pulse Rate 102 H Respiratory 18 Rate Blood Pressure 148/88 [Right] O2 Sat by Pulse 99 Oximetry - EKG Data -: EKG Interpreted by Me - EKG Data 07/11/19 15:49 EKG today is unchanged from prior EKG. This is a sinus rhythm, with 97 bpm, normal axis, QTC is 471 ms, there is borderline left ventricular hypertrophy, the EKG is abnormal, the EKG is unchanged from prior. The EKG is not consistent with ST elevation myocardial infarction, and its unchanged from prior. - Radiology Data Radiology results: pending, report reviewed, image reviewed Print Report Referring Physician: VENKATESH DURAND Patient Name: JORGE ANG Date of : 1960 Sex: Male Report Date: 2019-07-11 Report Status: Finalized Findings [facility] [address] [place] [address] Cat Scan Report Signed Patient: JORGE ANG MR#: [id number] : 1960 Acct:[id number] Age/Sex: 59 / M ADM Date: 07/11/19 Loc: ED Attending Dr: Ordering Physician: VENKATESH DURAND MD Date of Service: 07/11/19 Procedure(s): CT abdomen pelvis w con Accession Number(s): [id number] cc: VENKATESH DURAND MD CT scan of the abdomen and pelvis with contrast INDICATION: Abdominal pain, tenderness. TECHNIQUE: All CT scans at this location are performed using the following dose modulation technique: Automated exposure control. Helical slices were obtained through the abdomen and pelvis. 100 cc of Omnipaque 300 is administered. COMPARISON: CT scan dated 05/17/2019 FINDINGS: Abdomen: There is scar noted in the left lung base. There is fatty infiltration of the liver. The spleen, pancreas, adrenal glands, kidneys, and small bowel unremarkable. The aorta is normal in diameter. Atherosclerotic calcifications are noted in the aorta and iliac arteries. The appendix is unremarkable. There is wall thickening noted in the right colon to the level of the hepatic flexure. Finding when compared to the prior study. Pelvis: The bowel contained within the pelvis is unremarkable. There is no laboratory change. The urinary bladder is grossly unremarkable. On review of bone windows, no acute osseous abnormalities are seen. IMPRESSION: There is wall thickening noted in the right colon and hepatic flexure possibly representing colitis. There is no obstruction. There are no abnormal fluid collections and there is no free air. There is fatty infiltration of the liver. Signer Name: Carlos Penaloza MD Signed: 07/11/2019 8:14 PM Workstation Name: [id number] Transcribed By: SS Dictated By: Carlos Penaloza MD Electronically Authenticated By: Carlos Penaloza MD Signed Date/Time: 07/11/192013 DD/ 07 TD/TT: Print Report Referring Physician: VENKATESH DURAND Patient Name: JORGE ANG Date of : 1960 Sex: Male Report Date: 2019-07-11 Report Status: Finalized Findings [facility] [address] [place] [address] XRay Report Signed Patient: JORGE ANG MR#: [id number] : 1960 Acct:[id number] Age/Sex: 59 / M ADM Date: 07/11/19 Loc: ED Attending Dr: Ordering Physician: VENKATESH DURAND MD Date of Service: 07/11/19 Procedure(s): XR chest 1V ap Accession Number(s): [id number] cc: VENKATESH DURAND MD Fluoro Time In Minutes: CHEST 1 VIEW INDICATION / CLINICAL INFORMATION: cough hx of sob. COMPARISON: 05/17/2019 FINDINGS: SUPPORT DEVICES: None. HEART / MEDIASTINUM: No significant abnormality. LUNGS / PLEURA: Airspace disease and pleural thickening in the left apex and upper lobe has worsened No pneumothorax. ADDITIONAL FINDINGS: No significant additional findings. IMPRESSION: Airspace disease and pleural thickening in the left apex and upper lobe has worsened since prior examination dated 05/17/2019 Signer Name: Shane Baker MD FACR Signed: 07/11/2019 3:53 PM Workstation Name: [id number] Transcribed By: MS Dictated By: Shane Baker MD Electronically Authenticated By: Shane Baker MD Signed Date/Time: 07/11/191552 DD/ 50 TD/TT: Critical care attestation.: If time is entered above; I have spent that time in minutes in the direct care of this critically ill patient, excluding procedure time. ED Disposition Clinical Impression: Alcohol intoxication, Abdominal pain Disposition: DC-01 TO HOME OR SELFCARE Is pt being admited?: No Does the pt Need Aspirin: No Condition: Stable Additional Instructions: Take the antibiotics as directed. Patient may take [id number] pain medication as needed, either Pepcid, 20 mg, once every 12-24 hours, as needed, alternating with Motrin, 400 mg, with food, every 6 hours, alternating with Tylenol, 650 mg, with food, as needed for pain. Recommend discontinuation of alcohol consumption. Long-term consumption of alcohol may result an addiction, disability, paralysis, loss of quality of life. Take the nausea medication is needed and directed. Take antibiotics as needed and directed. Recommend foll ow-up with the primary care doctor within the next month. Patient should also follow up with a netezza architect for nonspecific large intestine findings on CT scan. Not following up is recommended may result an undiagnosed cancer, tumor, malignancy. Do not take metformin medication for the next 2 days, if patient takes this medication. Return to the emergency room right away with new, worsened, different symptoms, or symptoms not present on the initial emergency room evaluation. Prescriptions: Amoxicillin/Potassium Clav [Augmentin 875-125 Tablet] 1 each PO BID #20 tablet Multivitamin with Folic Acid [Cvs One Daily Essential Tablet] 400 mcg PO QDAY #30 tablet chlordiazePOXIDE [Librium] 25 mg PO Q6H PRN #25 capsule PRN Reason: Alcohol Withdrawal Esomeprazole Magnesium [Nexium 24Hr] 20 mg PO DAILY #30 tab Metoclopramide [Reglan] 10 mg PO QID PRN #30 tab PRN Reason: Nausea Referrals: [facility] [Provider Group] - 3-5 Days
[2019-07-11 15:55] LABS: Hematocrit 38.6 % (35.5-45.6); Hemoglobin 12.8 gm/dl (11.8-15.2); Mean Corpuscular HGB Conc 33 % (32-34); Mean Corpuscular Volume 84 fl (84-94); Platelet Count 195 K/mm3 (140-440); Red Cell Distribution Width 14.8 % (13.2-15.2)
[2019-07-11 15:57] LABS: INR 1.09 (0.87-1.13)
--- NOTE | 2019-07-11 15:57 | XRay Report ---
CHEST 1 VIEW INDICATION / CLINICAL INFORMATION: cough hx of sob. COMPARISON: 05/17/2019 FINDINGS: SUPPORT DEVICES: None. HEART / MEDIASTINUM: No significant abnormality. LUNGS / PLEURA: Airspace disease and pleural thickening in the left apex and upper lobe has worsened No pneumothorax. ADDITIONAL FINDINGS: No significant additional findings. IMPRESSION: Airspace disease and pleural thickening in the left apex and upper lobe has worsened since prior exam ination dated 05/17/2019 Signer Name: Shane Baker MD FACR Signed: 07/11/2019 3:53 PM Workstation Name: [id number]
[2019-07-11] MEDS ORDERED: D5/0.45NS 1,000 ML IV SCH ×2 (16:00→17:00)
[2019-07-11 16:05] LABS: Alanine Aminotransferase 32 units/L (7-56); Albumin 4.4 g/dL (3.9-5); BUN/Creatinine Ratio 19; Blood Urea Nitrogen 13 mg/dL (9-20); Calcium 8.9 mg/dL (8.4-10.2); Hemolysis Index 2
[2019-07-11] MEDS ORDERED: ATIVAN IV PRN ×3 (16:39)
[2019-07-11] MEDS ORDERED: ATIVAN IM PRN (19:03)
[2019-07-11] MEDS ORDERED: HALDOL IM PRN (19:03)
--- NOTE | 2019-07-11 20:18 | Cat Scan Report ---
CT scan of the abdomen and pelvis with contrast INDICATION: Abdominal pain, tenderness. TECHNIQUE: All CT scans at this location are performed using the following dose modulation technique: Automated exposure control. Helical slices were obtained through the abdomen and pelvis. 100 cc of Omnipaque 30 0 is administered. COMPARISON: CT scan dated 05/17/2019 FINDINGS: Abdomen: There is scar noted in the left lung base. There is fatty infiltration of the liver. The spl een, pancreas, adrenal glands, kidneys, and small bowel unremarkable. The aorta is normal in diameter . Atherosclerotic calcifications are noted in the aorta and iliac arteries. The appendix is unremarka ble. There is wall thickening noted in the right colon to the level of the hepatic flexure. Finding when c ompared to the prior study. Pelvis: The bowel contained within the pelvis is unremarkable. There is no laboratory change. The uri nary bladder is grossly unremarkable. On review of bone windows, no acute osseous abnormalities are seen. IMPRESSION: There is wall thickening noted in the right colon and hepatic flexure possibly representing colitis. There is no obstruction. There are no abnormal fluid collections and there is no free air. There is fatty infiltration of the liver. Signer Name: Carlos Penaloza MD Signed: 07/11/2019 8:14 PM Workstation Name: [id number]
[2019-07-11] MEDS ORDERED: FLAGYL 500 MG/100 ML 500 MG/100 ML BAG IV ONE (21:04)
[2019-07-11] MEDS ORDERED: LEVAQUIN 500MG/100ML 500 MG/100 ML BAG IV ONE (22:00)
[2019-07-12] MEDS: LEVAQUIN 500MG/100ML 500 MG/100 ML BAG IV ONE ×2 (02:48→07:18)
[2019-07-12] MEDS ORDERED: FLAGYL 500 MG/100 ML 500 MG/100 ML BAG IV ONE (03:00)
[2019-07-12 03:26] VITALS: BP 156/89
== END 2019-07-12 07:30 | disposition home or self-care (01) ==
LOC: ED 14:22
DX: R10.9 Unspecified abdominal pain (principal); F10.929 Alcohol use, unspecified with intoxication, unspecified; I10 Essential (primary) hypertension; K21.9 Gastro-esophageal reflux disease without esophagitis; F17.200 Nicotine dependence, unspecified, uncomplicated
CPT/HCPCS: 36415; 71045; 74177; 80053; 82550; 82962; 83690; 83735; 85027; 85610; 93005; 93010; 96361; 96365; 96366; 96368; 96375; 99285; J1956; J2405; J7030; Q9967; 80320; G0480

== ENCOUNTER 2019-09-08 15:17 | Emergency (ER) | payer SELFPAY ==
[2019-09-08] MEDS ORDERED: ASPIRIN 325 MG TAB PO ONE (17:26)
--- NOTE | 2019-09-08 17:30 | Event Note ---
ED Screening Note Date of service: 09/08/19 Time: 17:26 ED Screening Note: This is a 59 y.o. M. that presents to the ER with chest pain for 7 hours. Patient reports feeling dizzy this morning. Current smoker and ETOH PMH of DM and HTN This initial assessment/diagnostic orders/clinical plan/treatment(s) is/are subject to change based on patients health status, clinical progression and re- assessment by fellow clinical providers in the ED. Further treatment and workup at subsequent clinical providers discretion. Patient/guardian urged not to elope from the ED as their condition may be serious if not clinically assessed and managed. Initial orders include: Labs, EKG, & CXR
[2019-09-08] MEDS ORDERED: ASPIRIN 325 MG TAB ONE (17:33)
[2019-09-08 18:09] LABS: Basophils # (Auto) 0.1 K/mm3 (0.0-0.1); Eosinophils # (Auto) 0.1 K/mm3 (0.0-0.4); Eosinophils % (Auto) 0.9 % (0.0-4.3); Hematocrit 40.4 % (35.5-45.6); Hemoglobin 13.2 gm/dl (11.8-15.2); Lymphocytes # (Auto) 3.5 K/mm3 (1.2-5.4); Lymphocytes % (Auto) 43.7 % (13.4-35.0); Mean Corpuscular HGB Conc 33 % (32-34); Mean Corpuscular Volume 85 fl (84-94); Monocytes # (Auto) 0.7 K/mm3 (0.0-0.8); Monocytes % (Auto) 8.8 % (0.0-7.3); Platelet Count 190 K/mm3 (140-440); Red Blood Count 4.77 M/mm3 (3.65-5.03); Red Cell Distribution Width 17.4 % (13.2-15.2)
[2019-09-08 18:29] LABS: BUN/Creatinine Ratio 13; Blood Urea Nitrogen 10 mg/dL (9-20); Calcium 9.5 mg/dL (8.4-10.2); Hemolysis Index 6
--- NOTE | 2019-09-08 18:33 | XRay Report ---
CHEST 1 VIEW INDICATION / CLINICAL INFORMATION: Chest Pain. COMPARISON: Chest radiograph 07/11/2019 FINDINGS: SUPPORT DEVICES: None. HEART / MEDIASTINUM: Stable. LUNGS / PLEURA: Unchanged appearance, with pleural parenchymal scarring at the left apex noted. Sugge stion of volume loss in the left hemithorax with slight mediastinal shift. No acute airspace disease. No pleural fluid or pneumothorax. IMPRESSION: No acute finding. No significant change. Signer Name: Luc Muro MD Signed: 09/08/2019 6:29 PM Workstation Name: [id number]
--- NOTE | 2019-09-08 22:26 | Emergency Department Report ---
ED General Adult HPI - General Chief complaint: Chest Pain Stated complaint: CHEST PAIN Time Seen by Provider: 09/08/19 17:25 Source: patient, EMS ( EMS documentation not available at time of chart dictation ), RN notes reviewed, old records reviewed Mode of arrival: Stretcher Limitations: No Limitations - History of Present Illness Initial comments: This is a 59-year-old gentleman. I have evaluated this patient in the past. Past medical history includes type 2 diabetes, hypertension, tobacco use, alcohol dependency, chronic pleural disease. I have evaluated this patient multiple times in the past. Earlier on this year, he had a negative nuclear cardiac stress test at this hospital This patient frequently presents for abdominal pain and chest pain. Today, the patient presents with a complaint of nontraumatic subxiphoid chest pain that ra diates around to the back, present constantly for 13 hours, after doing heavy lifting and lifting shingles. He denies DVT and pulmonary embolus risk factors. He endorses cough, tobacco use, and occasional hemoptysis. There is no lower abdominal pain. There is no vomiting. The patient states he is not consumed alcohol in the past 2 days. He is very tremulous. He is not homicidal or suicidal. He is considering detox. He makes no extremity complaint. He states it is very cold. There is no diarrhea -: Gradual, hour(s) Location: chest Radiation: back Consistency: constant Improves with: none Worsens with: none - Related Data Home Medications Medication Instructions Recorded Confirmed Last Taken lisinopriL [Zestril TAB] 5 mg PO QDAY 05/12/19 05/12/19 05/11/19 Previous Rx's Medication Instructions Recorded Last Taken Type Amoxicillin/Potassium Clav 1 each PO BID #20 tablet 07/11/19 Unknown Rx [Augmentin 875-125 Tablet] Esomeprazole Magnesium [Nexium 20 mg PO DAILY #30 tab 09/09/19 Unknown Rx 24Hr] Metoclopramide [Reglan TAB] 10 mg PO QID PRN #30 tab 09/09/19 Unknown Rx Multivitamin with Folic Acid [Cvs 400 mcg PO QDAY #30 tablet 09/09/19 Unknown Rx One Daily Essential Tablet] chlordiazePOXIDE [Librium] 25 mg PO Q6H PRN #25 capsule 09/09/19 Unknown Rx Allergies Allergy/AdvReac Type Severity Reaction Status Date / Time No Known Allergies Allergy Verified 09/08/19 15:20 ED Review of Systems ROS: Stated complaint: CHEST PAIN Other details as noted in HPI Constitutional: malaise. denies: fever Eyes: denies: eye discharge ENT: denies: congestion Respiratory: cough. denies: wheezing Cardiovascular: chest pain Gastrointestinal: denies: nausea, vomiting, diarrhea Genitourinary: denies: dysuria Musculoskeletal: denies: myalgia Skin: denies: lesions Neurological: weakness Psychiatric: anxiety. denies: homicidal thoughts, suicidal thoughts Hematological/Lymphatic: denies: easy bleeding ED Past Medical Hx - Past Medical History Hx Hypertension: Yes Hx Heart Attack/AMI: No Hx Congestive Heart Failure: No Hx Diabetes: Yes Hx Deep Vein Thrombosis: No Hx GERD: Yes Hx Liver Disease: No Hx Asthma: No Hx COPD: No Additional medical history: ETOH - Surgical History Hx Coronary Stent: No Hx Pacemaker: No Hx Internal Defibrillator: No - Social History Smoking Status: Current Every Day Smoker Substance Use Type: Alcohol - Medications Home Medications: Home Medications Medication Instructions Recorded Confirmed Last Taken Type lisinopriL [Zestril TAB] 5 mg PO QDAY 05/12/19 05/12/19 05/11/19 History Amoxicillin/Potassium Clav 1 each PO BID #20 tablet 07/11/19 Unknown Rx [Augmentin 875-125 Tablet] Esomeprazole Magnesium [Nexium 20 mg PO DAILY #30 tab 09/09/19 Unknown Rx 24Hr] Metoclopramide [Reglan TAB] 10 mg PO QID PRN #30 tab 09/09/19 Unknown Rx Multivitamin with Folic Acid [Cvs 400 mcg PO QDAY #30 tablet 09/09/19 Unknown Rx One Daily Essential Tablet] chlordiazePOXIDE [Librium] 25 mg PO Q6H PRN #25 capsule 09/09/19 Unknown Rx ED Physical Exam - General Limitations: No Limitations, Physical Limitation General appearance: alert, anxious, in distress - Head Head exam: Present: atraumatic, normocephalic - Eye Eye exam: Present: normal appearance, EOMI - ENT ENT exam: Present: mucous membranes dry, normal external ear exam, other (tongue fasciculations noted) - Neck Neck exam: Present: normal inspection, full ROM. Absent: tenderness, meningismus - Respiratory Respiratory exam: Present: normal lung sounds bilaterally. Absent: respiratory distress - Cardiovascular Cardiovascular Exam: Present: regular rate, normal rhythm, normal heart sounds. Absent: bradycardia, irregular rhythm, systolic murmur, diastolic murmur, rubs, gallop - GI/Abdominal GI/Abdominal exam: Present: soft, normal bowel sounds. Absent: distended, tenderness, guarding, rebound, rigid, pulsatile mass - Rectal Rectal exam: Present: deferred - Extremities Exam Extremities exam: Present: normal inspection, full ROM, other (2+ pulses noted in the bilateral upper and lower extremities. There is no palpable cord. negative Homans sign. Muscular compartments are soft. The pelvis is stable.). Absent: pedal edema, joint swelling, calf tenderness - Back Exam Back exam: Present: normal inspection, full ROM. Absent: tenderness, CVA tenderness (R), CVA tenderness (L), paraspinal tenderness, vertebral tenderness - Neurological Exam Neurological exam: Present: alert, other (there is no facial droop. The tongue is midline. The extraocular movements are intact bilaterally. Speaking in full sentences. Minimal elevation of the base of the tongue. There is 5 out of 5 strength in the bilateral upper and lower extremities, and sensation is intact to light touch in the bilateral upper and lower extremities. Appropriate insight.) - Psychiatric Psychiatric exam: Present: anxious. Absent: homicidal ideation, suicidal ideation - Skin Skin exam: Present: warm, dry, intact, normal color. Absent: rash ED Course Vital Signs 09/08/19 09/08/19 09/08/19 17:26 22:19 22:30 Temperature 98.5 F Pulse Rate 105 H 92 H 99 H Respiratory 22 16 Rate Blood Pressure 144/88 168/89 191/102 O2 Sat by Pulse 100 100 100 Oximetry 09/08/19 09/08/19 09/08/19 23:00 23:15 23:30 Temperature Pulse Rate 96 H 88 86 Respiratory 14 Rate Blood Pressure 158/80 140/59 154/79 O2 Sat by Pulse 100 94 96 Oximetry 09/08/19 09/09/19 09/09/19 23:45 00:00 00:15 Temperature Pulse Rate 87 87 89 Respiratory 21 20 17 Rate Blood Pressure 148/73 156/73 158/83 O2 Sat by Pulse 96 98 97 Oximetry - Reevaluation(s) Reevaluation #1: 09/08/19 22:37 Differential diagnosis, including but not limited to: GERD, gastritis, hiatal hernia, pancreatitis, pneumonia, bronchitis, bronchiectasis, malignancy, alcohol withdrawal Acute coronary syndrome Assessment and plan: 67-year-old gentleman with active tremors, awake, alert, sober, tongue fasciculations, clinically appears to be in alcohol withdrawal. Abdomen soft and benign, without rebound, guarding or peritoneal signs. He is not homicidal or suicidal and does not meet 1013 hold criteria at this time. He will be given fluids, antacids, benzodiazepines, repeat laboratory studies, EKG pending. Patient had a cardiac risk stratification at this hospital within the past year. Troponin negative times one. EKG unchanged from prior. This is unlikely to be atypical presentation of acute coronary syndrome. He is not hypoxic, ta chypneic. He is intimately tachycardic, likely secondary to anxiety as well as alcohol withdrawal. The patient is unlikley to have a pulmonary embolism. Has equal pulses in the upper and lower extremities bilaterally, x-ray the chest is reviewed and appreciated, this is unlikely to be aortic disease. Reevaluation #2: 09/08/19 22:39 initial ciwa score 9 Reevaluation #3: 09/08/19 23:14 Resting comfortably in stretcher. Tachycardia resolved. Repeat EKG unchanged from prior. No active vomiting. Reevaluation #4: 09/09/19 01:52 Reassessed multiple times. Resting comfortably. Walking with a steady gait. Patient clinically sober at this time. He may follow up as an outpatient. ED Medical Decision Making - Lab Data Result diagrams: 09/08/19 17:45 09/08/19 17:45 Vital Signs 09/08/19 17:26 Temperature 98.5 F Pulse Rate 105 H Respiratory 22 Rate Blood Pressure 144/88 O2 Sat by Pulse 100 Oximetry Lab Results 09/08/19 09/08/19 Range/Units 17:45 17:45 WBC 8.1 (4.5-11.0) K/mm3 RBC 4.77 (3.65-5.03) M/mm3 Hgb 13.2 (11.8-15.2) gm/dl Hct 40.4 (35.5-45.6) % MCV 85 (84-94) fl MCH 28 (28-32) pg MCHC 33 (32-34) % RDW 17.4 H (13.2-15.2) % Plt Count 190 (140-440) K/mm3 Lymph % (Auto) 43.7 H (13.4-35.0) % Sharkey % (Auto) 8.8 H (0.0-7.3) % Eos % (Auto) 0.9 (0.0-4.3) % Baso % (Auto) 1.0 (0.0-1.8) % Lymph # 3.5 (1.2-5.4) K/mm3 Sharkey # 0.7 (0.0-0.8) K/mm3 Eos # 0.1 (0.0-0.4) K/mm3 Baso # 0.1 (0.0-0.1) K/mm3 Seg Neutrophils % 45.6 (40.0-70.0) % Seg Neutrophils # 3.7 (1.8-7.7) K/mm3 Sodium 142 (137-145) mmol/L Potassium 5.0 (3.6-5.0) mmol/L Chloride 103.3 (98-107) mmol/L Carbon Dioxide 22 (22-30) mmol/L Anion Gap 22 mmol/L BUN 10 (9-20) mg/dL Creatinine 0.8 (0.8-1.5) mg/dL Estimated GFR > 60 ml/min BUN/Creatinine Ratio 13 % Glucose 103 H (75-100) mg/dL Calcium 9.5 (8.4-10.2) mg/dL Troponin T < 0.010 (0.00-0.029) ng/mL - EKG Data -: EKG Interpreted by Fl EKG shows normal: sinus rhythm Rate: tachycardia - EKG Data 09/08/19 22:39 EKG today is unchanged from prior. There is a sinus tachycardia, the QTC is prolonged, there is motion artifact, there is no ST elevation myocardial infarction. Essentially unchanged from prior 07/11/2019. - Radiology Data Radiology results: report reviewed, image reviewed Print Report Referring Physician: LAISHA FERMIN Patient Name: JORGE ANG Date of : 1960 Sex: Male Report Date: 2019-09-08 Report Status: Finalized Findings [facility] [address] [place] [address] XRay Report Signed Patient: JORGE ANG MR#: [id number] : 1960 Acct:[id number] Age/Sex: 59 / M ADM Date: 09/08/19 Loc: ED Attending Dr: Ordering Physician: MARIANNE SANTOS Date of Service: 09/08/19 Procedure(s): XR chest 1V ap Accession Number(s): [id number] cc: MARIANNE SANTOS Fluoro Time In Minutes: CHEST 1 VIEW INDICATION / CLINICAL INFORMATION: Chest Pain. COMPARISON: Chest radiograph 07/11/2019 FINDINGS: SUPPORT DEVICES: None. HEART / MEDIASTINUM: Stable. LUNGS / PLEURA: Unchanged appearance, with pleural parenchymal scarring at the left apex noted. Suggestion of volume loss in the left hemithorax with slight mediastinal shift. No acute airspace disease. No pleural fluid or pneumothorax. IMPRESSION: No acute finding. No significant change. Signer Name: Luc Muro MD Signed: 09/08/2019 6:29 PM Workstation Name: [id number] Transcribed By: DMB Dictated By: Luc Muro MD Electronically Authenticated By: Luc Muro MD Signed Date/Time: 09/08/191828 Print Report Referring Physician: VENKATESH DURAND Patient Name: JORGE ANG Date of : 1960 Sex: Male Report Date: 2019-07-11 Report Status: Finalized Findings [facility] [address] [place] [address] XRay Report Signed Patient: JORGE ANG MR#: [id number] : 1960 Acct:[id number] Age/Sex: 59 / M ADM Date: 07/11/19 Loc: ED Attending Dr: Ordering Physician: VENKATESH DURAND MD Date of Service: 07/11/19 Procedure(s): XR chest 1V ap Accession Number(s): [id number] cc: VENKATESH DURAND MD Fluoro Time In Minutes: CHEST 1 VIEW INDICATION / CLINICAL INFORMATION: cough hx of sob. COMPARISON: 05/17/2019 FINDINGS: SUPPORT DEVICES: None. HEART / MEDIASTINUM: No significant abnormality. LUNGS / PLEURA: Airspace disease and pleural thickening in the left apex and upper lobe has worsened No pneumothorax. ADDITIONAL FINDINGS: No significant additional findings. IMPRESSION: Airspace disease and pleural thickening in the left apex and upper lobe has worsened si nce prior examination dated 05/17/2019 Signer Name: Shane Baker MD FACR Signed: 07/11/2019 3:53 PM Workstation Name: [id number] Transcribed By: MS Dictated By: Shane Baker MD Electronically Authenticated By: Shane Baker MD Signed Date/Time: 07/11/191552 DD/ 50 Critical care attestation.: If time is entered above; I have spent that time in minutes in the direct care of this critically ill patient, excluding procedure time. ED Disposition Clinical Impression: History of chest pain, Alcohol abuse Disposition: DC-01 TO HOME OR SELFCARE Is pt being admited?: No Does the pt Need Aspirin: No Condition: Good Additional Instructions: Recommend the patient discontinue or minimize alcohol consumption. Recommend the patient discontinued tobacco smoking. Take the medications as needed and directed, take Librium as needed for sensation of alcohol withdrawal. Recommend follow-up with the primary care doctor within the next 7-10 days. Avoid consumption of Motrin, ibuprofen, Naprosyn, Aleve. Return to the emergency room right away with new, worsening, different symptoms, or symptoms not present on the initial emergency room evaluation. Referrals: [facility] [Provider Group] - 3-5 Days [facility] [Provider Group] - 3-5 Days [facility] [Outside] - 3-5 Days
[2019-09-08] MEDS ORDERED: diazePAM 10 MG/2 ML SYRINGE IV ONE (22:32)
[2019-09-08] MEDS ORDERED: FAMOTIDINE 20 MG/2 ML INJ IV ONE (22:32)
[2019-09-08] MEDS ORDERED: D5W/0.45% NACL 1,000 ML IV SCH (23:00)
[2019-09-09 02:02] VITALS: BP 155/78
== END 2019-09-09 03:00 | disposition home or self-care (01) ==
LOC: ED 15:17
DX: R10.9 Unspecified abdominal pain (principal); R07.9 Chest pain, unspecified; I10 Essential (primary) hypertension; E11.9 Type 2 diabetes mellitus without complications; K21.9 Gastro-esophageal reflux disease without esophagitis; F17.200 Nicotine dependence, unspecified, uncomplicated
CPT/HCPCS: 36415; 71045; 80048; 82550; 83690; 83735; 84484; 85025; 93005; 93010; 96374; 96375; 99284; J3360; 80320; G0480

== ENCOUNTER 2019-09-27 15:29 | Emergency (ER) | payer SELFPAY ==
[2019-09-27 20:23] VITALS: BP 120/56
[2019-09-27] MEDS ORDERED: ACETAMINOPHEN 325 MG TAB PO ONE (20:25)
--- NOTE | 2019-09-27 20:26 | Event Note ---
ED Screening Note Date of service: 09/27/19 Time: 20:22 ED Screening Note: This is a 59 y.o. M. that presents to the ER with back pain today while at work. Patient states symptoms started while lifting andie shingles. Current smoker and ETOH abuse. PMH of DM and HTN This initial assessment/diagnostic orders/clinical plan/treatment(s) is/are subject to change based on patients health status, clinical progression and re- assessment by fellow clinical providers in the ED. Further treatment and workup at subsequent clinical providers discretion. Patient/guardian urged not to elope from the ED as their condition may be serious if not clinically assessed and managed. Initial orders include: XR thoracic spine Given analgesics
[2019-09-27] MEDS ORDERED: ACETAMINOPHEN 325 MG TAB ONE (20:27)
--- NOTE | 2019-09-27 21:31 | XRay Report ---
THORACIC SPINE, AP AND LATERAL VIEWS INDICATION: back pain. COMPARISON: Chest radiograph 09/08/2019. FINDINGS: No fracture or subluxation is seen. There is mild discogenic degenerative change in the upper thoraci c spine. Alignment is within normal limits. There is pleural parenchymal scarring in the left upper hemithorax, this is similar to prior chest ra diograph from 09/08/2019. IMPRESSION: 1. No acute findings. Signer Name: Andrez Martinez MD Signed: 09/27/2019 9:26 PM Workstation Name: [id number]
[2019-09-27] MEDS ORDERED: dexAMETHasone 20 MG/5 ML VIAL IM ONE (22:49)
[2019-09-27] MEDS ORDERED: KETOROLAC 30 MG/1 ML INJ IM ONE (22:49)
--- NOTE | 2019-09-27 23:40 | Emergency Department Report ---
ED Back Pain/Injury HPI - General Chief Complaint: Shoulder Injury Stated Complaint: LT SHOULDER PAIN Time Seen by Provider: 09/27/19 20:20 Source: patient Limitations: No Limitations - History of Present Illness Initial Comments: This is a 59 y.o. M. that presents to the ER with back pain today while at work. Patient states symptoms started while lifting andie shingles on his truck yesterday. pt denies fall or trauma. This is an acute exacerbation of a chronic upper back problem. Current smoker and ETOH abuse. PMH of DM and HTN. MD Complaint: back injury Onset/Timin -: days(s) Similar Symptoms Previously: Yes Place: work Radiation: other (right upper back and ribs ) Severity scale (0 -10): 4 Quality: aching Consistency: intermittent Worsens With: movement, deep breaths/cough Context: while lifting, turning/twisting Associated Symptoms: denies other symptoms. denies: difficulty walking, difficulty urinating, incontinence, headaches, shortness of breath - Related Data Home Medications Medication Instructions Recorded Confirmed Last Taken lisinopriL [Zestril TAB] 5 mg PO QDAY 05/12/19 05/12/19 05/11/19 Previous Rx's Medication Instructions Recorded Last Taken Type Amoxicillin/Potassium Clav 1 each PO BID #20 tablet 07/11/19 Unknown Rx [Augmentin 875-125 Tablet] Esomeprazole Magnesium [Nexium 20 mg PO DAILY #30 tab 09/09/19 Unknown Rx 24Hr] Metoclopramide [Reglan TAB] 10 mg PO QID PRN #30 tab 09/09/19 Unknown Rx Multivitamin with Folic Acid [Cvs 400 mcg PO QDAY #30 tablet 09/09/19 Unknown Rx One Daily Essential Tablet] chlordiazePOXIDE [Librium] 25 mg PO Q6H PRN #25 capsule 09/09/19 Unknown Rx Cyclobenzaprine [Flexeril] 10 mg PO TID PRN #30 tablet 09/28/19 Unknown Rx Menthol/Camphor [[place] 1 applicatio TP QID PRN #1 tube 09/28/19 Unknown Rx Ointment] Naproxen 500 mg PO BID PRN #30 tablet 09/28/19 Unknown Rx predniSONE [Deltasone] 40 mg PO QDAY 5 Days #10 tab 09/28/19 Unknown Rx Allergies Allergy/AdvReac Type Severity Reaction Status Date / Time No Known Allergies Allergy Verified 09/08/19 15:20 ED Review of Systems ROS: Stated complaint: LT SHOULDER PAIN Other details as noted in HPI Constitutional: denies: chills, fever Eyes: denies: eye pain, eye discharge, vision change ENT: denies: ear pain, throat pain Respiratory: denies: cough, shortness of breath, wheezing Cardiovascular: denies: chest pain, palpitations Endocrine: no symptoms reported Gastrointestinal: denies: abdominal pain, nausea, diarrhea Genitourinary: denies: urgency, dysuria Musculoskeletal: back pain, arthralgia, myalgia, other (left lateral rib pain ). denies: joint swelling Skin: denies: rash, lesions Neurological: denies: headache, weakness, paresthesias Psychiatric: denies: anxiety, depression Hematological/Lymphatic: denies: easy bleeding, easy bruising ED Past Medical Hx - Past Medical History Previous Medical History?: Yes Hx Hypertension: Yes Hx Heart Attack/AMI: No Hx Congestive Heart Failure: No Hx Diabetes: Yes Hx Deep Vein Thrombosis: No Hx GERD: Yes Hx Liver Disease: No Hx Asthma: No Hx COPD: No Additional medical history: ETOH - Surgical History Past Surgical History?: Yes Hx Coronary Stent: No Hx Pacemaker: No Hx Internal Defibrillator: No Additional Surgical History: right arm surgery- to repair artery - Social History Smoking Status: Current Every Day Smoker Substance Use Type: Alcohol - Medications Home Medications: Home Medications Medication Instructions Recorded Confirmed Last Taken Type lisinopriL [Zestril TAB] 5 mg PO QDAY 05/12/19 05/12/19 05/11/19 History Amoxicillin/Potassium Clav 1 each PO BID #20 tablet 07/11/19 Unknown Rx [Augmentin 875-125 Tablet] Esomeprazole Magnesium [Nexium 20 mg PO DAILY #30 tab 09/09/19 Unknown Rx 24Hr] Metoclopramide [Reglan TAB] 10 mg PO QID PRN #30 tab 09/09/19 Unknown Rx Multivitamin with Folic Acid [Cvs 400 mcg PO QDAY #30 tablet 09/09/19 Unknown Rx One Daily Essential Tablet] chlordiazePOXIDE [Librium] 25 mg PO Q6H PRN #25 capsule 09/09/19 Unknown Rx Cyclobenzaprine [Flexeril] 10 mg PO TID PRN #30 tablet 09/28/19 Unknown Rx Menthol/Camphor [[place] 1 applicatio TP QID PRN #1 tube 09/28/19 Unknown Rx Ointment] Naproxen 500 mg PO BID PRN #30 tablet 09/28/19 Unknown Rx predniSONE [Deltasone] 40 mg PO QDAY 5 Days #10 tab 09/28/19 Unknown Rx ED Physical Exam - General Limitations: No Limitations General appearance: alert, in no apparent distress - Head Head exam: Present: normocephalic, normal inspection - Expanded Head Exam Expanded Head exam: Absent: laceration, abrasion, contusion, hematoma, racoon eyes, joyner's sign, general tenderness, tenderness of temporal artery - Eye Eye exam: Present: normal appearance, PERRL, EOMI Pupils: Present: normal accommodation - ENT ENT exam: Present: mucous membranes moist - Neck Neck exam: Present: normal inspection, full ROM. Absent: tenderness, m eningismus, lymphadenopathy, thyromegaly - Expanded Neck Exam Expanded Neck exam: Absent: tenderness, midline deformity, anterior neck swelling, thyroid mass, carotid bruit, tracheal deviation - Respiratory Respiratory exam: Present: normal lung sounds bilaterally. Absent: respiratory distress, wheezes, stridor, chest wall tenderness - Cardiovascular Cardiovascular Exam: Present: regular rate, normal rhythm, normal heart sounds. Absent: systolic murmur, diastolic murmur, rubs, gallop - GI/Abdominal GI/Abdominal exam: Present: soft, normal bowel sounds. Absent: distended, tenderness, bruit, hernia - Rectal Rectal exam: Present: deferred - Extremities Exam Extremities exam: Present: normal inspection, full ROM, normal capillary refill. Absent: tenderness - Back Exam Back exam: Present: normal inspection, full ROM, tenderness, muscle spasm, paraspinal tenderness. Absent: CVA tenderness (R), CVA tenderness (L), vertebral tenderness, rash noted - Expanded Back Exam Expanded Back exam: Absent: saddle anesthesia Back exam: Negative Straight Leg Raising: Left, Right - Neurological Exam Neurological exam: Present: alert, oriented X3, CN II-XII intact, normal gait, reflexes normal. Absent: motor sensory deficit - Expanded Neurological Exam Expanded Patient oriented to: Present: person, place, time Speech: Present: fluid speech Cranial nerves: EOM's Intact: Normal, Gag Reflex: Normal, Tongue Deviation: Normal, Nystagmus: Normal, Facial Sensation: Normal Motor strength exam: RUE: 5, LUE: 5, RLE: 5, LLE: 5 Best Eye Response ([place]av[place]): (4) open spontaneously Best Motor Response ([place]): (6) obeys commands Best Verbal Response ([place]): (5) oriented Flavio Total: 15 ED Course Vital Signs 09/27/19 09/27/19 15:44 20:22 Temperature 97.7 F Pulse Rate 112 H 104 H Respiratory 18 20 Rate Blood Pressure 125/76 120/56 O2 Sat by Pulse 100 100 Oximetry ED Medical Decision Making - Radiology Data Radiology results: report reviewed, image reviewed Ordering Physician: MARIANNE SANTOS Date of Service: 09/27/19 Procedure(s): XR spine thoracic 2V Accession Number(s): [id number] cc: MARIANNE SANTOS Fluoro Time In Minutes: THORACIC SPINE, AP AND LATERAL VIEWS INDICATION: back pain. COMPARISON: Chest radiograph 09/08/2019. FINDINGS: No fracture or subluxation is seen. There is mild discogenic degenerative change in the upper thoracic spine. Alignment is within normal limits. There is pleural parenchymal scarring in the left upper hemithorax, this is similar to prior chest radiograph from 09/08/2019. IMPRESSION: 1. No acute findings. Signer Name: Andrez Martinez MD Signed: 09/27/2019 9:26 PM Workstation Name: [id number] Transcribed By: Dictated By: nAdrez Martinez MD Electronically Authenticated By: Andrez Martinez MD Signed Date/Time: 09/27/192125 DD/ 24 TD/TT: - Medical Decision Making xray: mild degenerative changes, no acute fracture, plan: dc to home with rx for NDAIDs, Muscle relaxant, prednisone, analgesic balm follow up with ortho in 2-3 days , pt verbalized agreement and understanding of discharge plan. Critical care attestation.: If time is entered above; I have spent that time in minutes in the direct care of this critically ill patient, excluding procedure time. ED Disposition Clinical Impression: Upper back pain on left side, Chronic upper back pain Disposition: DC-01 TO HOME OR SELFCARE Is pt being admited?: No Does the pt Need Aspirin: No Condition: Stable Instructions: Arthralgia (ED), Chronic Back Pain (ED) Prescriptions: predniSONE [Deltasone] 40 mg PO QDAY 5 Days #10 tab Cyclobenzaprine [Flexeril] 10 mg PO TID PRN #30 tablet PRN Reason: Muscle Spasm Naproxen 500 mg PO BID PRN #30 tablet PRN Reason: pain Menthol/Camphor [[place] Ointment] 1 applicatio TP QID PRN #1 tube PRN Reason: Pain , Severe (7-10) Referrals: ESTELA GONSALES MD [Staff Physician] - 3-5 Days Forms: Work/School Release Form(ED) Time of Disposition: 00:39
== END 2019-09-28 00:45 | disposition home or self-care (01) ==
LOC: ED 15:29
DX: G89.29 Other chronic pain (principal); M54.6 Pain in thoracic spine; I10 Essential (primary) hypertension; E11.9 Type 2 diabetes mellitus without complications; K21.9 Gastro-esophageal reflux disease without esophagitis; F17.200 Nicotine dependence, unspecified, uncomplicated
CPT/HCPCS: 72070; 96372; 99283; J1100; J1885

== ENCOUNTER 2019-11-22 12:23 | Emergency (ER) | payer SELFPAY ==
[2019-11-22] MEDS ORDERED: CYCLOBENZAPRINE 10 MG TAB PO ONE (14:21)
[2019-11-22] MEDS ORDERED: MORPHINE 4 MG/1 ML INJ IV ONE (14:21)
[2019-11-22] MEDS ORDERED: KETOROLAC 30 MG/1 ML INJ IV ONE (14:21)
--- NOTE | 2019-11-22 15:06 | Emergency Department Report ---
ED Fall HPI - General Chief Complaint: Back Pain/Injury Stated Complaint: BACK PAIN Time Seen by Provider: 11/22/19 14:20 Source: patient, EMS Mode of arrival: Stretcher - History of Present Illness Initial Comments: Mr. Wagner is a 59 yo male with hx of HTN, DM, GERD, alcohol abuse who presents with lower left back pain after falling down several steps while at work. Severe sharp pain. Arrived per EMS. MD Complaint: fall -: Sudden, This afternoon Fall From: down stairs (#) When Fall Occurred: [address] Fall Occurred: work Loss of Consciousness: none Prolonged Down Time?: no, yes Location: back Severity: severe Severity scale (0 -10): 10 Quality: sharp Context: tripped/slipped Associated Symptoms: denies - Related Data Home Medications Medication Instructions Recorded Confirmed Last Taken lisinopriL [Zestril TAB] 5 mg PO QDAY 05/12/19 05/12/19 05/11/19 Previous Rx's Medication Instructions Recorded Last Taken Type Amoxicillin/Potassium Clav 1 each PO BID #20 tablet 07/11/19 Unknown Rx [Augmentin 875-125 Tablet] Esomeprazole Magnesium [Nexium 20 mg PO DAILY #30 tab 09/09/19 Unknown Rx 24Hr] Metoclopramide [Reglan TAB] 10 mg PO QID PRN #30 tab 09/09/19 Unknown Rx Multivitamin with Folic Acid [Cvs 400 mcg PO QDAY #30 tablet 09/09/19 Unknown Rx One Daily Essential Tablet] chlordiazePOXIDE [Librium] 25 mg PO Q6H PRN #25 capsule 09/09/19 Unknown Rx Cyclobenzaprine [Flexeril] 10 mg PO TID PRN #30 tablet 09/28/19 Unknown Rx Menthol/Camphor [[place] 1 applicatio TP QID PRN #1 tube 09/28/19 Unknown Rx Ointment] Naproxen 500 mg PO BID PRN #30 tablet 09/28/19 Unknown Rx predniSONE [Deltasone] 40 mg PO QDAY 5 Days #10 tab 09/28/19 Unknown Rx Cyclobenzaprine [Flexeril] 10 mg PO TID PRN #20 tablet 11/22/19 Unknown Rx HYDROcodone/APAP 5-325 [[place] 1 each PO Q6HR PRN #10 tablet 11/22/19 Unknown Rx 5/325] Ibuprofen [Motrin 400 MG tab] 400 mg PO TID 5 Days #15 tablet 11/22/19 Unknown Rx Allergies Allergy/AdvReac Type Severity Reaction Status Date / Time No Known Allergies Allergy Verified 09/08/19 15:20 ED Review of Systems ROS: Stated complaint: BACK PAIN Other details as noted in HPI Constitutional: denies: fever, malaise Respiratory: denies: cough Cardiovascular: denies: as per HPI Gastrointestinal: denies: abdominal pain Musculoskeletal: back pain Neurological: denies: numbness, paresthesias, abnormal gait ED Past Medical Hx - Past Medical History Previous Medical History?: Yes Hx Hypertension: Yes Hx Heart Attack/AMI: No Hx Congestive Heart Failure: No Hx Diabetes: Yes Hx Deep Vein Thrombosis: No Hx GERD: Yes Hx Liver Disease: No Hx Asthma: No Hx COPD: No Additional medical history: ETOH - Surgical History Hx Coronary Stent: No Hx Pacemaker: No Hx Internal Defibrillator: No Additional Surgical History: right arm surgery- to repair artery - Social History Smoking Status: Current Every Day Smoker Substance Use Type: Alcohol - Medications Home Medications: Home Medications Medication Instructions Recorded Confirmed Last Taken Type lisinopriL [Zestril TAB] 5 mg PO QDAY 05/12/19 05/12/19 05/11/19 History Amoxicillin/Potassium Clav 1 each PO BID #20 tablet 07/11/19 Unknown Rx [Augmentin 875-125 Tablet] Esomeprazole Magnesium [Nexium 20 mg PO DAILY #30 tab 09/09/19 Unknown Rx 24Hr] Metoclopramide [Reglan TAB] 10 mg PO QID PRN #30 tab 09/09/19 Unknown Rx Multivitamin with Folic Acid [[facility]vs 400 mcg PO QDAY #30 tablet 09/09/19 Unknown Rx One Daily Essential Tablet] chlordiazePOXIDE [Librium] 25 mg PO Q6H PRN #25 capsule 09/09/19 Unknown Rx Cyclobenzaprine [Flexeril] 10 mg PO TID PRN #30 tablet 09/28/19 Unknown Rx Menthol/Camphor [[place] 1 applicatio TP QID PRN #1 tube 09/28/19 Unknown Rx Ointment] Naproxen 500 mg PO BID PRN #30 tablet 09/28/19 Unknown Rx predniSONE [Deltasone] 40 mg PO QDAY 5 Days #10 tab 09/28/19 Unknown Rx Cyclobenzaprine [Flexeril] 10 mg PO TID PRN #20 tablet 11/22/19 Unknown Rx HYDROcodone/APAP 5-325 [[place] 1 each PO Q6HR PRN #10 tablet 11/22/19 Unknown Rx 5/325] Ibuprofen [Motrin 400 MG tab] 400 mg PO TID 5 Days #15 tablet 11/22/19 Unknown Rx ED Physical Exam - General Limitations: No Limitations General appearance: alert, other (appears in severe pain) - Head Head exam: Present: atraumatic, normocephalic - Eye Eye exam: Present: normal appearance - ENT ENT exam: Present: mucous membranes moist - Neck Neck exam: Present: normal inspection, full ROM - Respiratory Respiratory exam: Present: normal lung sounds bilaterally. Absent: respiratory distress, wheezes, rales, rhonchi - Cardiovascular Cardiovascular Exam: Present: regular rate, normal rhythm, normal heart sounds. Absent: systolic murmur, diastolic murmur, rubs, gallop - GI/Abdominal GI/Abdominal exam: Present: soft, normal bowel sounds. Absent: distended, tenderness, guarding, rebound - Rectal Rectal exam: Present: deferred - Extremities Exam Extremities exam: Present: normal inspection - Back Exam Back exam: Present: normal inspection, full ROM. Absent: tenderness, CVA tenderness (R), CVA tenderness (L), muscle spasm, paraspinal tenderness, v ertebral tenderness, rash noted - Neurological Exam Neurological exam: Present: alert, oriented X3, normal gait - Psychiatric Psychiatric exam: Present: normal affect, normal mood - Skin Skin exam: Present: warm, dry, intact, normal color. Absent: rash ED Course Vital Signs 11/22/19 13:58 Temperature 97.6 F Pulse Rate 98 H Respiratory 20 Rate Blood Pressure 145/95 [Right] O2 Sat by Pulse 100 Oximetry ED Medical Decision Making - Radiology Data Radiology results: image reviewed Lumbosacral radiographs: No fracture no subluxation, +DDD with osteophytes my personal interpretation - Medical Decision Making Mr. Wagner presents with severe lower left back pain after fall down several steps. Radiographs do not reveal any acute injury. Pain was controlled with IV analgesia in the emergency department. Prescribed Flexeril ibuprofen and [place]. Provided outpatient medicine physician referral. Critical care attestation.: If time is entered above; I have spent that time in minutes in the direct care of this critically ill patient, excluding procedure time. ED Disposition Clinical Impression: Acute back pain, Fall, Lumbar degenerative disc disease Disposition: TO HOME OR SELFCARE Is pt being admited?: No Does the pt Need Aspirin: No Condition: Stable Instructions: Low Back Strain (ED) Prescriptions: Cyclobenzaprine [Flexeril] 10 mg PO TID PRN #20 tablet PRN Reason: Muscle Spasm Ibuprofen [Motrin 400 MG tab] 400 mg PO TID 5 Days #15 tablet HYDROcodone/APAP 5-325 [[place] 5/325] 1 each PO Q6HR PRN #10 tablet PRN Reason: Pain Referrals: TRICIA FRANKLIN MD [Primary Care Provider] - 3-5 Days TIM TOBIAS MD [Staff Physician] - 3-5 Days
[2019-11-22 18:26] VITALS: BP 140/90
--- NOTE | 2019-11-23 12:38 | XRay Report ---
LUMBAR SPINE 3 VIEWS INDICATION / CLINICAL INFORMATION: FALL. . Pain. COMPARISON: None available. FINDINGS: VERTEBRAE: No acute fracture. No significant malalignment. DISC SPACES / FACET JOINTS:Degenerative disc disease at L4-5 with minimal disc space narrowing and pr ominent anterior and lateral osteophytes. PARASPINAL SOFT TISSUES:No significant abnormality. ADDITIONAL FINDINGS: None. IMPRESSION: 1. No acute findings. 2. Degenerative disc disease. Signer Name: Jacek Lopez MD Signed: 11/22/2019 4:07 PM Workstation Name: [id number]
== END 2019-11-22 17:32 | disposition home or self-care (01) ==
LOC: ED 12:23
DX: M51.36 Other intervertebral disc degeneration, lumbar region (principal); I10 Essential (primary) hypertension; E11.9 Type 2 diabetes mellitus without complications; K21.9 Gastro-esophageal reflux disease without esophagitis; F17.200 Nicotine dependence, unspecified, uncomplicated; Z98.890 Other specified postprocedural states; Z79.1 Long term (current) use of non-steroidal anti-inflammatories (NSAID); Z79.899 Other long term (current) drug therapy
CPT/HCPCS: 72100; 96374; 96375; 99283; J1885; J2270

== ENCOUNTER 2019-11-25 02:00 | Emergency (ER) | payer SELFPAY ==
--- NOTE | 2019-11-25 02:32 | Emergency Department Report ---
ED Back Pain/Injury HPI - General Chief Complaint: Back Pain/Injury Stated Complaint: BACK PAIN Time Seen by Provider: 11/25/19 02:18 Source: patient, EMS Limitations: No Limitations - History of Present Illness Initial Comments: 59-year-old male with history of chronic back pain presents to ED with complaint of back pain. Patient reports that he fell at work 3 days ago. Patient was seen following that fall and given a prescription for [place], ibuprofen, and Flexeril. Patient did not get these prescriptions filled, states he cannot afford them, he currently has the paperwork and the unfilled prescriptions with him. Patient reports the pain is in the same location as it was 3 days ago. He reports lumbar pain bilaterally. Patient denies any injury or fall since his l ast ED visit. Patient states the pain improved, however he was laying in bed all day and after he got up, the back pain returned. Patient denies any fever, difficulty with urination, urinary bowel incontinence. MD Complaint: back pain Similar Symptoms Previously: Yes Place: home Radiation: none Severity: moderate Quality: aching Consistency: intermittent Improves With: immobilization Worsens With: movement Context: fall Associated Symptoms: denies: numbness, incontinence, fever/chills - Related Data Home Medications Medication Instructions Recorded Confirmed Last Taken lisinopriL [Zestril TAB] 5 mg PO QDAY 05/12/19 05/12/19 05/11/19 Previous Rx's Medication Instructions Recorded Last Taken Type Amoxicillin/Potassium Clav 1 each PO BID #20 tablet 07/11/19 Unknown Rx [Augmentin 875-125 Tablet] Esomeprazole Magnesium [Nexium 20 mg PO DAILY #30 tab 09/09/19 Unknown Rx 24Hr] Metoclopramide [Reglan TAB] 10 mg PO QID PRN #30 tab 09/09/19 Unknown Rx Multivitamin with Folic Acid [[facility]vs 400 mcg PO QDAY #30 tablet 09/09/19 Unknown Rx One Daily Essential Tablet] chlordiazePOXIDE [Librium] 25 mg PO Q6H PRN #25 capsule 09/09/19 Unknown Rx Cyclobenzaprine [Flexeril] 10 mg PO TID PRN #30 tablet 09/28/19 Unknown Rx Menthol/Camphor [[place] 1 applicatio TP QID PRN #1 tube 09/28/19 Unknown Rx Ointment] Naproxen 500 mg PO BID PRN #30 tablet 09/28/19 Unknown Rx predniSONE [Deltasone] 40 mg PO QDAY 5 Days #10 tab 09/28/19 Unknown Rx Cyclobenzaprine [Flexeril] 10 mg PO TID PRN #20 tablet 11/22/19 Unknown Rx HYDROcodone/APAP 5-325 [[place] 1 each PO Q6HR PRN #10 tablet 11/22/19 Unknown Rx 5/325] Ibuprofen [Motrin 400 MG tab] 400 mg PO TID 5 Days #15 tablet 11/22/19 Unknown Rx Allergies Allergy/AdvReac Type Severity Reaction Status Date / Time No Known Allergies Allergy Verified 09/08/19 15:20 ED Review of Systems ROS: Stated complaint: BACK PAIN Other details as noted in HPI Comment: All other systems reviewed and negative Constitutional: denies: chills, fever Gastrointestinal: denies: abdominal pain Musculoskeletal: back pain Neurological: denies: weakness, numbness ED Past Medical Hx - Past Medical History Previous Medical History?: Yes Hx Hypertension: Yes Hx Heart Attack/AMI: No Hx Congestive Heart Failure: No Hx Diabetes: Yes Hx Deep Vein Thrombosis: No Hx GERD: Yes Hx Liver Disease: No Hx Asthma: No Hx COPD: No Additional medical history: ETOH - Surgical History Past Surgical History?: Yes Hx Coronary Stent: No Hx Pacemaker: No Hx Internal Defibrillator: No Additional Surgical History: right arm surgery- to repair artery - Social History Smoking Status: Current Every Day Smoker Substance Use Type: Alcohol - Medications Home Medications: Home Medications Medication Instructions Recorded Confirmed Last Taken Type lisinopriL [Zestril TAB] 5 mg PO QDAY 05/12/19 05/12/19 05/11/19 History Amoxicillin/Potassium Clav 1 each PO BID #20 tablet 07/11/19 Unknown Rx [Augmentin 875-125 Tablet] Esomeprazole Magnesium [Nexium 20 mg PO DAILY #30 tab 09/09/19 Unknown Rx 24Hr] Metoclopramide [Reglan TAB] 10 mg PO QID PRN #30 tab 09/09/19 Unknown Rx Multivitamin with Folic Acid [[facility]vs 400 mcg PO QDAY #30 tablet 09/09/19 Unknown Rx One Daily Essential Tablet] chlordiazePOXIDE [Librium] 25 mg PO Q6H PRN #25 capsule 09/09/19 Unknown Rx Cyclobenzaprine [Flexeril] 10 mg PO TID PRN #30 tablet 09/28/19 Unknown Rx Menthol/Camphor [[place] 1 applicatio TP QID PRN #1 tube 09/28/19 Unknown Rx Ointment] Naproxen 500 mg PO BID PRN #30 tablet 09/28/19 Unknown Rx predniSONE [Deltasone] 40 mg PO QDAY 5 Days #10 tab 09/28/19 Unknown Rx Cyclobenzaprine [Flexeril] 10 mg PO TID PRN #20 tablet 11/22/19 Unknown Rx HYDROcodone/APAP 5-325 [[place] 1 each PO Q6HR PRN #10 tablet 11/22/19 Unknown Rx 5/325] Ibuprofen [Motrin 400 MG tab] 400 mg PO TID 5 Days #15 tablet 11/22/19 Unknown Rx ED Physical Exam - General Limitations: No Limitations General appearance: alert, in no apparent distress - Head Head exam: Present: atraumatic, normocephalic - Eye Eye exam: Present: normal appearance - ENT ENT exam: Present: mucous membranes moist - Neck Neck exam: Present: normal inspection - Respiratory Respiratory exam: Present: normal lung sounds bilaterally. Absent: respiratory distress - Cardiovascular Cardiovascular Exam: Present: normal rhythm, tachycardia - GI/Abdominal GI/Abdominal exam: Present: soft. Absent: distended, tenderness - Extremities Exam Extremities exam: Present: other (mild swelling to left foot, no erythema or deformity) - Back Exam Back exam: Present: paraspinal tenderness (bilateral lumbar region), other (pt ambulatory without assistance) - Neurological Exam Neurological exam: Present: alert, oriented X3. Absent: motor sensory deficit - Psychiatric Psychiatric exam: Present: normal affect, normal mood - Skin Skin exam: Present: warm, dry, intact, normal color ED Course Vital Signs 11/25/19 11/25/19 02:11 02:39 Temperature 97.7 F Pulse Rate 123 H 89 Respiratory 24 18 Rate Blood Pressure 149/96 Blood Pressure 138/77 [Left] O2 Sat by Pulse 100 100 Oximetry ED Medical Decision Making - Medical Decision Making Patient seen 3 days ago for same. Previous ED visits also report that patient has history of chronic back pain. Patient reports fall 3 days ago denies any trauma since then. Lumbar films from 3 days ago did not show any acute fracture or dislocation. At triage patient was tachycardic, however 30 minutes later vital signs have normalized. He is afebrile. Patient is ambulatory without assistance. Gait is normal. He has been advised to get his prescriptions filled. Good Rx card was given to patient. Outpatient follow-up advised. Return precautions given. - Differential Diagnosis chronic back pain, acute on chronic back pain Critical care attestation.: If time is entered above; I have spent that time in minutes in the direct care of this critically ill patient, excluding procedure time. ED Disposition Clinical Impression: Back pain Disposition: MED SCREENING EXAM-LEFT Is pt being admited?: No Condition: Stable Instructions: Back Pain (ED) Referrals: TRICIA FRANKLIN MD [Primary Care Provider] - 3-5 Days ESTELA GONSALES MD [Staff Physician] - 3-5 Days Time of Disposition: 02:41
[2019-11-25 02:40] VITALS: BP 138/77
== END 2019-11-25 02:47 | disposition left against medical advice (07) ==
LOC: ED 02:00
DX: M54.89 Other dorsalgia (principal); I10 Essential (primary) hypertension; E11.9 Type 2 diabetes mellitus without complications; K21.9 Gastro-esophageal reflux disease without esophagitis; F17.200 Nicotine dependence, unspecified, uncomplicated; Z98.890 Other specified postprocedural states; Z79.899 Other long term (current) drug therapy

== ENCOUNTER 2020-01-06 03:21 | Inpatient (IN) | payer OTHER ==
[2020-01-06] MEDS ORDERED: ASPIRIN 325 MG TAB PO ONE (03:37)
[2020-01-06] MEDS ORDERED: MORPHINE 2 MG/1 ML INJ IV ONE (03:37)
--- NOTE | 2020-01-06 03:39 | Emergency Department Report ---
ED Chest Pain HPI - General Chief Complaint: Dyspnea/Respdistress Stated Complaint: CHEST PAIN Time Seen by Provider: 01/06/20 03:34 Source: patient, EMS Mode of arrival: Ambulatory Limitations: No Limitations - History of Present Illness Initial Comments: Patient is a 59-year-old male that presents emergency room with complaints of chest pain and shortness of breath that started at 2 AM. Patient states his chest. Is better with rest and worse with movement and exertion. Patient states his shortness of breath is better with rest and worse with exertion. Patient states that his chest pain is better with rest. Patient states his shortness of breath is better with rest. Patient states he smokes. Patient states he drank 2 beers today. He states he has a past medical history of hypertension and diabetes. Patient states the chest pain is radiating to his back. MD Complaint: chest pain -: Sudden Onset: during rest Pain Location: left chest Pain Radiation: back Severity: severe Severity scale (0 -10): 8 Quality: sharp Consistency: constant Improves With: rest Worsens With: exertion, movement re: dyspnea. denies: nausea, vomting, diaphoresis, sense of impending doom Other Symptoms: denies: cough, fever, syncope, rash, acid taste in mouth, leg swelling, palpitations, burping Treatments Prior to Arrival: none Aspirin use within the Past 7 Days: (1) Yes - Related Data On Oral Contraceptives: No Home Medications Medication Instructions Recorded Confirmed Last Taken lisinopriL [Zestril TAB] 5 mg PO QDAY 05/12/19 01/06/20 05/11/19 Previous Rx's Medication Instructions Recorded Last Taken Type Esomeprazole Magnesium [Nexium 20 mg PO DAILY #30 tab 09/09/19 Unknown Rx 24Hr] Metoclopramide [Reglan TAB] 10 mg PO QID PRN #30 tab 09/09/19 Unknown Rx Multivitamin with Folic Acid [[facility]vs 400 mcg PO QDAY #30 tablet 09/09/19 Unknown Rx One Daily Essential Tablet] chlordiazePOXIDE [Librium] 25 mg PO Q6H PRN #25 capsule 09/09/19 Unknown Rx Cyclobenzaprine [Flexeril] 10 mg PO TID PRN #30 tablet 09/28/19 Unknown Rx HYDROcodone/APAP 5-325 [[place] 1 each PO Q6HR PRN #10 tablet 11/22/19 Unknown Rx 5/325] Allergies Allergy/AdvReac Type Severity Reaction Status Date / Time No Known Allergies Allergy Verified 09/08/19 15:20 Heart Score - HEART Score History: Slightly suspicious EKG: Non-specific Age: 45-65 Risk factors: 1-2 risk factors Troponin: < normal limit HEART Score: 3 ED Review of Systems ROS: Stated complaint: CHEST PAIN Other details as noted in HPI Constitutional: denies: chills, fever Eyes: denies: eye pain, eye discharge, vision change ENT: denies: ear pain, throat pain Respiratory: shortness of breath. denies: cough, wheezing Cardiovascular: chest pain. denies: palpitations Endocrine: no symptoms reported Gastrointestinal: denies: abdominal pain, nausea, diarrhea Genitourinary: denies: urgency, dysuria Musculoskeletal: denies: back pain, joint swelling, arthralgia Skin: denies: rash, lesions Neurological: denies: headache, weakness, paresthesias Psychiatric: denies: anxiety, depression Hematological/Lymphatic: denies: easy bleeding, easy bruising ED Past Medical Hx - Past Medical History Previous Medical History?: Yes Hx Hypertension: Yes Hx Heart Attack/AMI: No Hx Congestive Heart Failure: No Hx Diabetes: Yes Hx Deep Vein Thrombosis: No Hx GERD: Yes Hx Liver Disease: No Hx Asthma: No Hx COPD: No Additional medical history: ETOH - Surgical History Past Surgical History?: Yes Hx Coronary Stent: No Hx Pacemaker: No Hx Internal Defibrillator: No Additional Surgical History: right arm surgery- to repair artery - Family History Family history: no significant - Social History Smoking Status: Current Every Day Smoker Substance Use Type: Alcohol - Medications Home Medications: Home Medications Medication Instructions Recorded Confirmed Last Taken Type lisinopriL [Zestril TAB] 5 mg PO QDAY 05/12/19 01/06/20 05/11/19 History Esomeprazole Magnesium [Nexium 20 mg PO DAILY #30 tab 09/09/19 01/06/20 Unknown Rx 24Hr] Metoclopramide [Reglan TAB] 10 mg PO QID PRN #30 tab 09/09/19 01/06/20 Unknown Rx Multivitamin with Folic Acid [[facility]vs 400 mcg PO QDAY #30 tablet 09/09/19 01/06/20 Unknown Rx One Daily Essential Tablet] chlordiazePOXIDE [Librium] 25 mg PO Q6H PRN #25 capsule 09/09/19 01/06/20 Unknow n Rx Cyclobenzaprine [Flexeril] 10 mg PO TID PRN #30 tablet 09/28/19 01/06/20 Unknown Rx HYDROcodone/APAP 5-325 [[place] 1 each PO Q6HR PRN #10 tablet 11/22/19 01/06/20 Unknown Rx 5/325] ED Physical Exam - General Limitations: No Limitations General appearance: alert, in no apparent distress - Head Head exam: Present: atraumatic, normocephalic - Eye Eye exam: Present: normal appearance - ENT ENT exam: Present: mucous membranes moist - Neck Neck exam: Present: normal inspection - Respiratory Respiratory exam: Present: normal lung sounds bilaterally. Absent: respiratory distress - Cardiovascular Cardiovascular Exam: Present: regular rate, normal rhythm. Absent: systolic murmur, diastolic murmur, rubs, gallop - GI/Abdominal GI/Abdominal exam: Present: soft, normal bowel sounds - Rectal Rectal exam: Present: deferred - Extremities Exam Extremities exam: Present: normal inspection - Back Exam Back exam: Present: normal inspection - Neurological Exam Neurological exam: Present: alert, oriented X3 - Psychiatric Psychiatric exam: Present: normal affect, normal mood - Skin Skin exam: Present: warm, dry, intact, normal color. Absent: rash ED Course Vital Signs 01/06/20 01/06/20 01/06/20 03:30 03:54 04:15 Temperature 98.8 F Pulse Rate 98 H 90 Respiratory 22 19 18 Rate Blood Pressure 138/79 Blood Pressure 152/86 [Left] O2 Sat by Pulse 100 94 Oximetry 01/06/20 01/06/20 01/06/20 04:30 04:45 05:00 Temperature Pulse Rate 92 H 92 H 90 Respiratory 19 17 19 Rate Blood Pressure 124/74 118/71 118/69 Blood Pressure [Left] O2 Sat by Pulse 93 94 95 Oximetry 01/06/20 01/06/20 01/06/20 05:15 05:30 06:00 Temperature Pulse Rate 92 H 94 H 99 H Respiratory 18 26 H 17 Rate Blood Pressure 113/66 125/73 130/90 Blood Pressure [Left] O2 Sat by Pulse 95 95 99 Oximetry 01/06/20 01/06/20 06:05 06:15 Temperature Pulse Rate 87 Respiratory 19 28 H Rate Blood Pressure 120/76 Blood Pressure [Left] O2 Sat by Pulse 97 Oximetry - Reevaluation(s) Reevaluation #1: I discussed all results with patient. I discussed plan of care with patient. Patient agrees with plan of care and admission. Patient to be admitted to the hospitalist service. 01/06/20 04:48 - Consultations Consultation #1: Hospitalist consulted for admission. Hospitalist to admit patient. Bridge orders placed. 01/06/20 04:48 KACIE score - Kacie Score Age > 65: (1) Yes Aspirin use within the Past 7 Days: (1) Yes 3 or more CAD Risk Factors: (0) No 2 or more Angina events in past 24 hrs: (0) No Known CAD with more than 50% Stenosis: (0) No Elevated Cardiac Markers: (0) No ST Deviation Greater than 0.5mm: (0) No KACIE Score: 2 ED Medical Decision Making - Lab Data Result diagrams: 01/06/20 03:51 01/06/20 03:51 - EKG Data -: EKG Interpreted by Fl EKG shows normal: sinus rhythm, axis, intervals, QRS complexes, ST-T waves Rate: normal - Radiology Data Radiology results: report reviewed, image reviewed CHEST 1 VIEW INDICATION / CLINICAL INFORMATION: Dyspnea. COMPARISON: Prior chest radiograph 09/08/[address], 04/20/2019 FINDINGS: SUPPORT DEVICES: None. HEART / MEDIASTINUM: No significant abnormality. LUNGS / PLEURA: There continues to be pleural-parenchymal disease within the left upper lobe. The appearance is very suggestive for a cavitary lesion containing soft tissue mass. Review of chest CT on 04/20/2019 is suggestive of aspergilloma. The appearance is unchanged. The remainder of both lungs are clear.. ADDITIONAL FINDINGS: No significant additional findings. IMPRESSION: 1. 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 This finding is unchanged from prior exam. 2. No new findings. - Medical Decision Making Patient is a 59-year-old male that presents emergency room with complaints of chest pain. Patient chest pain rating to the back. Patient heart score is above 2 and patient admitted to the hospital service. Patient also complained of shortness of breath and dyspnea on exertion. Patient had a chest x-ray and it shows a right upper lobe aspergillosis. Patient require a rule out ACS by the hospitalist service. Patient's EKG is unremarkable. Patient's labs essentially unremarkable. - Differential Diagnosis Chest pain, shortness of breath, ACS. Critical Care Time: Yes Critical care time in (mins) excluding proc time.: 35 Critical care attestation.: If time is entered above; I have spent that time in minutes in the direct care of this critically ill patient, excluding procedure time. Critical Care Time: 35 minutes ED Disposition Clinical Impression: SOB (shortness of breath), BOYCE (dyspnea on exertion), Abnormal chest x-ray, Kathy g mass, Pulmonary aspergilloma Chest pain Qualifiers: Chest pain type: unspecified Qualified Code(s): R07.9 - Chest pain, unspecified Disposition: DC-09 OP ADMIT IP TO THIS HOSP Is pt being admited?: Yes Does the pt Need Aspirin: No Condition: Critical Time of Disposition: 05:53
--- NOTE | 2020-01-06 04:04 | XRay Report ---
CHEST 1 VIEW INDICATION / CLINICAL INFORMATION: Dyspnea. COMPARISON: Prior chest radiograph 09/08/[address], 04/20/2019 FINDINGS: SUPPORT DEVICES: None. HEART / MEDIASTINUM: No significant abnormality. LUNGS / PLEURA: There continues to be pleural-parenchymal disease within the left upper lobe. The tete earance is very suggestive for a cavitary lesion containing soft tissue mass. Review of chest CT on is suggestive of aspergilloma. The appearance is unchanged. The remainder of both lungs are c lear.. ADDITIONAL FINDINGS: No significant additional findings. IMPRESSION: 1. 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 This finding is unchanged from prior exam. 2. No new findings. Signer Name: Nathalie Vines MD Signed: 01/06/2020 4:00 AM Workstation Name: [id number]
[2020-01-06 04:11] LABS: Amphetamine Screen,Urine PRESUMPTIVE NEGATIVE; Benzodiazepines Screen,Urine PRESUMPTIVE NEGATIVE; Cannabinoid Screen,Urine PRESUMPTIVE NEGATIVE; Cocaine Screen,Urine PRESUMPTIVE NEGATIVE; Methadone Screen,Urine PRESUMPTIVE NEGATIVE; Opiate Screen,Urine PRESUMPTIVE NEGATIVE
[2020-01-06 04:15] LABS: Color,Urine Straw (Yellow)
[2020-01-06 04:16] LABS: Bacteria,Urine 1+ /HPF (Negative); Bilirubin,Urine NEG (Negative); Blood,Urine NEG (Negative); Mucus,Urine FEW /HPF; Protein,Urine <15 mg/dL mg/dL (Negative); Urobilinogen,Urine < 2.0 mg/dL (<2.0); WBC,Urine < 1.0 /HPF (0.0-6.0)
[2020-01-06 04:23] LABS: Alanine Aminotransferase 47 units/L (7-56); Albumin 4.2 g/dL (3.9-5); BUN/Creatinine Ratio 16; Basophils # (Auto) 0.1 K/mm3 (0.0-0.1); Basophils % (Auto) 1.4 % (0.0-1.8); Blood Urea Nitrogen 13 mg/dL (9-20); Calcium 9.1 mg/dL (8.4-10.2); Eosinophils # (Auto) 0.1 K/mm3 (0.0-0.4); Hematocrit 39.4 % (35.5-45.6); Hemolysis Index 3; Lymphocytes # (Auto) 2.5 K/mm3 (1.2-5.4); Lymphocytes % (Auto) 35.5 % (13.4-35.0); Mean Corpuscular HGB Conc 33 % (32-34); Mean Corpuscular Volume 87 fl (84-94); Monocytes # (Auto) 0.6 K/mm3 (0.0-0.8); Platelet Count 416 K/mm3 (140-440); Red Blood Count 4.54 M/mm3 (3.65-5.03); Red Cell Distribution Width 15.2 % (13.2-15.2)
[2020-01-06] MEDS ORDERED: MORPHINE 2 MG/1 ML INJ ONE (06:04)
[2020-01-06] MEDS: MORPHINE 4 MG/1 ML INJ IV PRN ×5 (06:05→22:24)
--- NOTE | 2020-01-06 06:34 | History and Physical Report ---
History of Present Illness Date of examination: 01/06/20 Date of admission: January 06, 2020 Chief complaint: Chest pain since 2 AM History of present illness: 59-year-old male with history of hypertension and GERD comes in for chest pain since 2 AM. Chest pain is retrosternal and nonradiating. No exacerbating or relieving factors. No diaphoresis or palpitations. Patient is a smoker about half a pack a day. No exacerbating or relieving factors. Has some shortness of breath at rest and worse with exertion. No previous coronary stents or stress test. Past Medical History Previous Medical History?: Yes Hypertension: Yes Diabetes: Yes GERD: Yes Additional medical history: ETOH Surgical History Past Surgical History?: Yes Additional Surgical History: right arm surgery- to repair artery Family History Family history: no significant Social History Smoking Status: Current Every Day Smoker Substance Use Type: Alcohol - Medications Home Medications: Home Medications Medication Instructions Recorded Confirmed Last Taken Type lisinopriL [Zestril TAB] 5 mg PO QDAY 05/12/19 05/12/19 05/11/19 History Amoxicillin/Potassium Clav 1 each PO BID #20 tablet 07/11/19 Unknown Rx [Augmentin 875-125 Tablet] Esomeprazole Magnesium [Nexium 20 mg PO DAILY #30 tab 09/09/19 Unknown Rx 24Hr] Metoclopramide [Reglan TAB] 10 mg PO QID PRN #30 tab 09/09/19 Unknown Rx Multivitamin with Folic Acid [[facility] 400 mcg PO QDAY #30 tablet 09/09/19 Unknown Rx One Daily Essential Tablet] chlordiazePOXIDE [Librium] 25 mg PO Q6H PRN #25 capsule 09/09/19 Unknown Rx Cyclobenzaprine [Flexeril] 10 mg PO TID PRN #30 tablet 09/28/19 Unknown Rx Menthol/Camphor [[place] 1 applicatio TP QID PRN #1 tube 09/28/19 Unknown Rx Ointment] Naproxen 500 mg PO BID PRN #30 tablet 09/28/19 Unknown Rx predniSONE [Deltasone] 40 mg PO QDAY 5 Days #10 tab 09/28/19 Unknown Rx Cyclobenzaprine [Flexeril] 10 mg PO TID PRN #20 tablet 11/22/19 Unknown Rx HYDROcodone/APAP 5-325 [[place] 1 each PO Q6HR PRN #10 tablet 11/22/19 Unknown Rx 5/325] Ibuprofen [Motrin 400 MG tab] 400 mg PO TID 5 Days #15 tablet 11/22/19 Unknown Rx Review of Systems ROS: Stated complaint: CHEST PAIN Other details as noted in HPI Constitutional: denies: chills, fever Eyes: denies: eye pain, eye discharge, vision change ENT: denies: ear pain, throat pain Respiratory: shortness of breath. denies: cough, wheezing Cardiovascular: chest pain. denies: palpitations Endocrine: no symptoms reported Gastrointestinal: denies: abdominal pain, nausea, diarrhea Genitourinary: denies: urgency, dysuria Musculoskeletal: denies: back pain, joint swelling, arthralgia Skin: denies: rash, lesions Neurological: denies: headache, weakness, paresthesias Psychiatric: denies: anxiety, depression Hematological/Lymphatic: denies: easy bleeding, easy bruising Medications and Allergies Allergies Allergy/AdvReac Type Severity Reaction Status Date / Time No Known Allergies Allergy Verified 09/08/19 15:20 Home Medications Medication Instructions Recorded Confirmed Last Taken Type lisinopriL [Zestril TAB] 5 mg PO QDAY 05/12/19 01/06/20 05/11/19 History Esomeprazole Magnesium [Nexium 20 mg PO DAILY #30 tab 09/09/19 01/06/20 Unknown Rx 24Hr] Metoclopramide [Reglan TAB] 10 mg PO QID PRN #30 tab 09/09/19 01/06/20 Unknown Rx Multivitamin with Folic Acid [[facility] 400 mcg PO QDAY #30 tablet 09/09/19 01/06/20 Unknown Rx One Daily Essential Tablet] chlordiazePOXIDE [Librium] 25 mg PO Q6H PRN #25 capsule 09/09/19 01/06/20 Unknown Rx Cyclobenzaprine [Flexeril] 10 mg PO TID PRN #30 tablet 09/28/19 01/06/20 Unknown Rx HYDROcodone/APAP 5-325 [[place] 1 each PO Q6HR PRN #10 tablet 11/22/19 01/06/20 Unknown Rx 5/325] Active Meds: Active Medications Morphine Sulfate (Morphine) 2 mg IV Q3H PRN PRN Reason: Pain , Severe (7-10) Last Admin: 04/18/20 06:05 Dose: 2 mg Documented by: Exam - Constitutional Vitals: Temp Pulse Resp BP Pulse Ox 98.8 F 87 28 H 120/76 97 01/06/20 03:30 01/06/20 06:15 01/06/20 06:15 01/06/20 06:15 01/06/20 06:15 General appearance: Present: no acute distress, well-nourished - EENT Eyes: Present: PERRL ENT: hearing intact, clear oral mucosa - Neck Neck: Present: supple, normal ROM - Respiratory Respiratory effort: normal Respiratory: bilateral: CTA - Cardiovascular Heart rate: 78 Rhythm: regular Heart Sounds: Present: S1 & S2. Absent: rub, click - Extremities Extremities: no ischemia, pulses intact, pulses symmetrical, No edema Peripheral Pulses: within normal limits - Abdominal General gastrointestinal: Present: soft, non-tender, non-distended, normal bowel sounds Male genitourinary: Present: normal - Rectal Rectal Exam: deferred - Integumentary Integumentary: Present: clear, warm, dry - Musculoskeletal Musculoskeletal: gait normal, strength equal bilaterally - Psychiatric Psychiatric: appropriate mood/affect, intact judgment & insight - Neurologic Neurologic: CNII-XII intact, moves all extremities KACIE score - Kacie Score Age > 65: (1) Yes Aspirin use within the Past 7 Days: (1) Yes 3 or more CAD Risk Factors: (0) No 2 or more Angina events in past 24 hrs: (0) No Known CAD with more than 50% Stenosis: (0) No Elevated Cardiac Markers: (0) No ST Deviation Greater than 0.5mm: (0) No KACIE Score: 2 Results - Labs CBC & Chem 7: 01/06/20 03:51 01/06/20 03:51 Labs: Laboratory Last Values WBC 6.9 K/mm3 (4.5-11.0) 01/06/20 03:51 RBC 4.54 M/mm3 (3.65-5.03) 01/06/20 03:51 Hgb 13.0 gm/dl (11.8-15.2) 01/06/20 03:51 Hct 39.4 % (35.5-45.6) 01/06/20 03:51 MCV 87 fl (84-94) 01/06/20 03:51 MCH 29 pg (28-32) 01/06/20 03:51 MCHC 33 % (32-34) 01/06/20 03:51 RDW 15.2 % (13.2-15.2) 01/06/20 03:51 Plt Count 416 K/mm3 (140-440) 01/06/20 03:51 Lymph % (Auto) 35.5 % (13.4-35.0) H 01/06/20 03:51 [place] % (Auto) 8.0 % (0.0-7.3) H 01/06/20 03:51 Eos % (Auto) 1.0 % (0.0-4.3) 01/06/20 03:51 Baso % (Auto) 1.4 % (0.0-1.8) 01/06/20 03:51 Lymph # 2.5 K/mm3 (1.2-5.4) 01/06/20 03:51 [place] # 0.6 K/mm3 (0.0-0.8) 01/06/20 03:51 Eos # 0.1 K/mm3 (0.0-0.4) 01/06/20 03:51 Baso # 0.1 K/mm3 (0.0-0.1) 01/06/20 03:51 Seg Neutrophils % 54.1 % (40.0-70.0) 01/06/20 03:51 Seg Neutrophils # 3.7 K/mm3 (1.8-7.7) 01/06/20 03:51 Sodium 140 mmol/L (137-145) 01/06/20 03:51 Potassium 4.1 mmol/L (3.6-5.0) 01/06/20 03:51 Chloride 102.2 mmol/L (98-107) 01/06/20 03:51 Carbon Dioxide 24 mmol/L (22-30) 01/06/20 03:51 Anion Gap 18 mmol/L 01/06/20 03:51 BUN 13 mg/dL (9-20) 01/06/20 03:51 Creatinine 0.8 mg/dL (0.8-1.5) 01/06/20 03:51 Estimated GFR > 60 ml/min 01/06/20 03:51 BUN/Creatinine Ratio 16 % 01/06/20 03:51 Glucose 165 mg/dL (75-100) H 01/06/20 03:51 Calcium 9.1 mg/dL (8.4-10.2) 01/06/20 03:51 Magnesium 2.20 mg/dL (1.7-2.3) 01/06/20 03:51 Total Bilirubin 0.30 mg/dL (0.1-1.2) 01/06/20 03:51 AST 42 units/L (5-40) H 01/06/20 03:51 ALT 47 units/L (7-56) 01/06/20 03:51 Alkaline Phosphatase 111 units/L (35-129) 01/06/20 03:51 Troponin T < 0.010 ng/mL (0.00-0.029) 01/06/20 03:51 Total Protein 7.8 g/dL (6.3-8.2) 01/06/20 03:51 Albumin 4.2 g/dL (3.9-5) 01/06/20 03:51 Albumin/Globulin Ratio 1.2 % 01/06/20 03:51 Urine Color Straw (Yellow) 01/06/20 03:53 Urine Turbidity Clear (Clear) 01/06/20 03:53 Urine pH 5.0 (5.0-7.0) 01/06/20 03:53 Ur Specific [place] 1.006 (1.003-1.030) 01/06/20 03:53 Urine Protein <15 mg/dl mg/dL (Negative) 01/06/20 03:53 Urine Glucose (UA) Neg mg/dL (Negative) 01/06/20 03:53 Urine Ketones Neg mg/dL (Negative) 01/06/20 03:53 Urine Blood Neg (Negative) 01/06/20 03:53 Urine Nitrite Neg (Negative) 01/06/20 03:53 Urine Bilirubin Neg (Negative) 01/06/20 03:53 Urine Urobilinogen < 2.0 mg/dL (<2.0) 01/06/20 03:53 Ur Leukocyte Esterase Neg (Negative) 01/06/20 03:53 Urine WBC (Auto) < 1.0 /HPF (0.0-6.0) 01/06/20 03:53 Urine RBC (Auto) 1.0 /HPF (0.0-6.0) 01/06/20 03:53 Urine Bacteria (Auto) 1+ /HPF (Negative) 01/06/20 03:53 Urine Mucus Few /HPF 01/06/20 03:53 Urine Opiates Screen Presumptive negative 01/06/20 03:53 Urine Methadone Screen Presumptive negative 01/06/20 03:53 Ur Barbiturates Screen Presumptive negative 01/06/20 03:53 Ur Phencyclidine Scrn Presumptive negative 01/06/20 03:53 Ur Amphetamines Screen Presumptive negative 01/06/20 03:53 U Benzodiazepines Scrn Presumptive negative 01/06/20 03:53 Urine Cocaine Screen Presumptive negative 01/06/20 03:53 U Marijuana (THC) Screen Presumptive negative 01/06/20 03:53 Drugs of Abuse Note Disclamer 01/06/20 03:53 Short CBC 01/06/20 Range/Units 03:51 WBC 6.9 (4.5-11.0) K/mm3 Hgb 13.0 (11.8-15.2) gm/dl Hct 39.4 (35.5-45.6) % Plt Count 416 (140-440) K/mm3 BMP 01/06/20 03:51 Sodium 140 Potassium 4.1 Chloride 102.2 Carbon Dioxide 24 BUN 13 Creatinine 0.8 Glucose 165 H Calcium 9.1 Cardiac Enzymes 01/06/20 Range/Units 03:51 Troponin T < 0.010 (0.00-0.029) ng/mL Liver Function 01/06/20 Range/Units 03:51 Total Bilirubin 0.30 (0.1-1.2) mg/dL AST 42 H (5-40) units/L ALT 47 (7-56) units/L Alkaline Phosphatase 111 (35-129) units/L Albumin 4.2 (3.9-5) g/dL Urine 01/06/20 Range/Units 03:53 Urine Color Straw (Yellow) Urine pH 5.0 (5.0-7.0) Ur Specific [place] 1.006 (1.003-1.030) Urine Protein <15 mg/dl (Negative) mg/dL Urine Glucose (UA) Neg (Negative) mg/dL - Imaging and Cardiology EKG: report reviewed (Sinus rhythm) Imaging and Cardiology: Chest x-ray LUNGS / PLEURA: There continues to be pleural-parenchymal disease within the left upper lobe. The appearance is very suggestive for a cavitary lesion containing soft tissue mass. Review of chest CT on 04/20/2019 is suggestive of aspergilloma. The appearance is unchanged. The remainder of both lungs are clear.. ADDITIONAL FINDINGS: No significant additional findings. IMPRESSION: 1. 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 This finding is unchanged from prior exam. 2. No new findings. Gore/IV: IV Catheter Type [Right INT / Saline Lock Forearm] Assessment and Plan Advance Directives: Yes (Full code) VTE prophylaxis?: Chemical Plan of care discussed with patient/family: Yes - Patient Problems (1) Chest pain Current Visit: Yes Status: Acute Qualifiers: Chest pain type: unspecified Qualified Code(s): R07.9 - Chest pain, unspecified Plan to address problem: Chest pain work-up Patient to get troponins and Lexiscan this morning (2) Hypertension Current Visit: Yes Status: Chronic Qualifiers: Hypertension type: essential hypertension Qualified Code(s): I10 - Essent ial (primary) hypertension Plan to address problem: Continue antihypertensives (3) Type 2 diabetes mellitus Current Visit: Yes Status: Chronic Qualifiers: Diabetes mellitus terminal manager insulin use: unspecified terminal manager insulin use status Plan to address problem: Continue coverage and check hemoglobin A1c (4) H/O aspergilloma Current Visit: Yes Status: Chronic Plan to address problem: Is unchanged left apex opacity from 2019 Will defer to primary team Patient may not need any further intervention (5) Nicotine dependence Current Visit: Yes Status: Chronic Qualifiers: Nicotine product type: cigarettes Plan to address problem: Patient counseled and started on NicoDerm patch (6) DVT prophylaxis Current Visit: Yes Status: Acute Plan to address problem: On heparin and GI prophylaxis
[2020-01-06] MEDS ORDERED: chlordiazePOXIDE 25 MG CAP PO PRN (06:41)
[2020-01-06] MEDS ORDERED: METOCLOPRAMIDE 10 MG TAB PO PRN (06:41)
[2020-01-06] MEDS ORDERED: CYCLOBENZAPRINE 10 MG TAB PO PRN (06:41)
[2020-01-06] MEDS ORDERED: HYDROcodone/ACETAMINOPHEN 5-325 MG TAB PO PRN (06:43)
[2020-01-06] MEDS ORDERED: ONDANSETRON 4 MG/2 ML INJ IV PRN (06:43)
[2020-01-06] MEDS ORDERED: HYDROmorphone 1 MG/1 ML INJ IV PRN (06:43)
[2020-01-06] MEDS ORDERED: ACETAMINOPHEN 325 MG TAB PO PRN (06:43)
[2020-01-06] MEDS ORDERED: INSULIN LISPRO 100 UNIT/ML SUB-Q ONE (06:46)
[2020-01-06 07:03] LABS: Basophils # (Auto) 0.1 K/mm3 (0.0-0.1); Basophils % (Auto) 1.7 % (0.0-1.8); Eosinophils # (Auto) 0.1 K/mm3 (0.0-0.4); Eosinophils % (Auto) 1.8 % (0.0-4.3); Hematocrit 38.9 % (35.5-45.6); Hemoglobin 12.8 gm/dl (11.8-15.2); Lymphocytes # (Auto) 2.1 K/mm3 (1.2-5.4); Lymphocytes % (Auto) 33.2 % (13.4-35.0); Mean Corpuscular HGB Conc 33 % (32-34); Mean Corpuscular Volume 87 fl (84-94); Monocytes # (Auto) 0.6 K/mm3 (0.0-0.8); Monocytes % (Auto) 9.8 % (0.0-7.3); Platelet Count 381 K/mm3 (140-440); Red Blood Count 4.49 M/mm3 (3.65-5.03)
[2020-01-06 07:20] LABS: Alanine Aminotransferase 44 units/L (7-56); Albumin 3.8 g/dL (3.9-5); BUN/Creatinine Ratio 16; Blood Urea Nitrogen 13 mg/dL (9-20); Calcium 9.1 mg/dL (8.4-10.2); Hemolysis Index 7
[2020-01-06] MEDS ORDERED: REGADENOSON 0.4 MG/5 ML INJ IV ONE ×2 (08:14→08:17)
[2020-01-06] MEDS ORDERED: ESOMEPRAZOLE MAGNESIUM 20 MG PO SCH (10:00)
--- NOTE | 2020-01-06 11:21 | Event Note ---
Date: 01/06/20 admitted for chest pain cardiology consulted - pending recommendation, trop negative cont to follow
[2020-01-06] MEDS: MULTIVITAMINS ,THERAPEUTIC TAB PO SCH (12:19)
[2020-01-06] MEDS: LISINOPRIL 5 MG TAB PO SCH (12:19)
[2020-01-06] MEDS: PANTOPRAZOLE 40 MG TAB PO SCH (12:19)
--- NOTE | 2020-01-06 14:20 | Consultation ---
CARDIOLOGY CONSULTATION HISTORY OF PRESENT ILLNESS: The patient is a 59-year-old -[place] gentleman with history of shortness of breath of many days' duration, mostly with exertion. Presently having shortness of breath at rest, on and off along with some vague anterior chest discomfort. This pain is better with rest and worse with exertion. Denies any fever, cough, or chills. The patient is diabetic for last many years, on medications along with history of essential hypertension and chronic smoking, smokes 1 pack per day since age 14 or so. The patient was admitted to the hospital and subsequently cardiac enzymes were found to be unremarkable and underwent pharmacological stress testing today, which showed evidence of inferolateral ischemia along with depressed ejection fraction of 43%. The patient denies any history of previous cardiac problems. No history of myocardial infarction or congestive heart failure or irregular heartbeat. ALLERGIES: None known. MEDICATIONS: At home included lisinopril 5 mg once a day, Flexeril 10 mg t.i.d. p.r.n. in addition to [place] 5/325 in addition to Librium. SOCIAL HISTORY: Smokes 1 pack per day for last many years. He drinks 6-pack of beer on the weekend. Denies any drug use. REVIEW OF SYSTEMS: History of hypertension as mentioned above for long time in addition to diabetes. He says he has some epigastric discomfort once in a while, but not on a regular basis. Denies any history of peptic ulcer disease. No history of strokes or seizures. No history of pulmonary emboli or DVT. No history of fever or coughing. No change in the bowel habits. No urinary symptoms. No hematuria. No history of anemia. No history of unusual headaches or paresthesia. No nausea or vomiting. PHYSICAL EXAMINATION: GENERAL: The patient appears to be comfortable, well-developed, well-nourished, in no acute distress. HEENT: Unremarkable. Conjunctivae pink. Sclerae anicteric. NECK: Supple, no JVD. HEART: Regular, probably S4, no S3, no significant murmurs. LUNGS: Clear. ABDOMEN: Benign. EXTREMITIES: Without edema. NEUROLOGIC: Alert, oriented x 3. LABORATORY DATA: Showed WBC count of 6.9 with hemoglobin of 13 g/dL, platelet count of 416,000. BUN is 13, creatinine of 0.8 with glucose of 165. Lipid profile is not available. The patient was noted to have abnormal CT scan in the past. CT of the chest done on 04/20/2019 was suggestive of aspergilloma, this in the left upper lobe, and this is being followed at [facility] according to the patient. FINAL IMPRESSION: 1. Chest pain and shortness of breath with exertion suggestive of angina along with multiple coronary risk factors including chronic smoking, diabetes mellitus and hypertension. Considering the above with abnormal pharmacological stress testing would start him on medication including aspirin once a day in addition to beta tigist and statin. However, considering his symptomatology, we will proceed with cardiac catheterization for definitive diagnosis and treatment. Discussed with the patient and he is willing to have the same thing performed. We will arrange for the same. 2. Longstanding essential hypertension. 2. Diabetes mellitus, adult onset. 3. Chronic smoking, still smokes 1 pack per day. 4. ETOH abuse. 5. History of aspergilloma suspected with cavitary lesion in the left upper lobe being followed at [place]. At this time, discussed with the patient about harmful effects of smoking and importance of quitting smoking. He understands, and he is willing to proceed with cardiac catheterization for definitive diagnosis and treatment. Thank you very much, Dr. Gifford for letting us participate in outpatient care. JOB# [id number] GANESH/HERNNADO
[2020-01-06] MEDS: METOPROLOL TARTRATE 50 MG TAB PO SCH (22:24)
[2020-01-07 05:19] LABS: Chol/HDL Ratio 2.54 %
[2020-01-07] MEDS: PANTOPRAZOLE 40 MG TAB PO SCH (10:57)
[2020-01-07] MEDS: METOPROLOL TARTRATE 50 MG TAB PO SCH ×2 (10:57→21:05)
[2020-01-07] MEDS: LISINOPRIL 5 MG TAB PO SCH (10:57)
[2020-01-07] MEDS: MULTIVITAMINS ,THERAPEUTIC TAB PO SCH (10:58)
--- NOTE | 2020-01-07 13:10 | Progress Note ---
Assessment and Plan / Chest pain Chest pain work-up Lexiscan this morning showed reversible defect with EF of 40% Plan for cardiac cath on Wednesday / Hypertension Continue antihypertensives / Type 2 diabetes mellitus Continue coverage and check hemoglobin A1c / H/O aspergilloma Is unchanged left apex opacity from 2019 Patient may not need any further intervention / Nicotine dependence Patient counseled and started on NicoDerm patch / DVT prophylaxis On heparin and GI prophylaxis 01/05 stress test results is abnormal showing reversible ischemia, plan for cardiac cath on Saturday 01/06: Continue to monitor the patient clinically, cardiac cath tomorrow. N.p.o. after midnight Brief history: Patient is a 59-year-old male with a history of tobacco and alcohol abuse that presents emergency room with complaints of chest pain and shortness of breath that started at 2 AM. He states he has a past medical history of hypertension and diabetes. Patient admitted for further evaluation management, Lexiscan showed reversible ischemia, plan for cardiac cath on Wednesday. Physical exam: GENERAL: well-developed -[place] male lying on bed appeared to be in no discomfort. HEENT: Normocephalic. Atraumatic. No conjunctival congestion or icterus. Patient has moist mucous membranes. NECK: Supple. Trachea midline. CHEST/LUNGS: Clear to auscultated bilaterally, breathing nonlabored. No wheezes crackles or rhonchi. HEART/CARDIOVASCULAR: Regular in rate and rhythm. S1 and S2 positive. ABDOMEN: Abdomen is soft, nontender. Patient has normal bowel sounds. SKIN: There is no rash. Warm and dry. NEURO: No focal motor deficit. Follows command. MUSCULOSKELETAL: No joint effusion or tenderness. EXTRIMITY: No edema, no cyanosis or clubbing. PSYCH: Cooperative. Subjective Date of service: 01/07/20 Interval history: Patient seen and examined. Medical records and medication list reviewed. No acute event overnight noted by the RN. Patient complains of intermittent chest pain which gets relieved by morphine and nitroglycerin, denies any difficulty breathing. Patient is tolerating diet. Discussed plan of care at bedside with patient. Objective - Constitutional Vitals: Vital Signs - 12hr 01/07/20 01/07/20 04:57 08:04 Temperature 97.9 F 98.3 F Pulse Rate 84 91 H Respiratory 18 16 Rate Blood Pressure 149/93 138/87 O2 Sat by Pulse 100 99 Oximetry - Labs CBC & Chem 7: 01/06/20 06:47 01/06/20 06:47 Labs: Abnormal lab results 01/07/20 Range/Units 04:15 Triglycerides 198 H (2-149) mg/dL
--- NOTE | 2020-01-07 14:12 | Progress Note ---
Assessment and Plan Echo 01/06/2020 reviewed - EF 50-55%; normal LV diastolic filling. Continue current cardiac regimen. Plan for LHC in AM. NPO after midnight. Pt seen in conjunction with Dr. Almaraz, who agrees with the assessment and plan of care. - Patient Problems (1) Chest pain Current Visit: Yes Status: Acute Qualifiers: Chest pain type: unspecified Qualified Code(s): R07.9 - Chest pain, unspecified (2) Hypertension Current Visit: Yes Status: Chronic Qualifiers: Hypertension type: essential hypertension Qualified Code(s): I10 - Essential (primary) hypertension (3) Hypertriglyceridemia Current Visit: Yes Status: Chronic (4) Type 2 diabetes mellitus Current Visit: Yes Status: Chronic Qualifiers: Diabetes mellitus terminal superintendent insulin use: unspecified fpc insulin use status (5) Tobacco abuse Current Visit: Yes Status: Chronic Subjective Date of service: 01/07/20 Principal diagnosis: Chest Pain Interval history: Pt lying comfortably in bed upon exam. He reports intermittent CP, which he states is better this AM. Pt reports he was unable to sleep last night. Tele reviewed - pt currently in NSR 80s with several episodes of ST 120-130s over night. No acute events. Objective Last Vital Signs Temp 98.3 F 01/07/20 08:04 Pulse 86 01/07/20 10:00 Resp 16 01/07/20 08:04 BP 138/87 01/07/20 08:04 Pulse Ox 99 01/07/20 08:04 - Physical Examination General: No Apparent Distress HEENT: Positive: EOMI, Normocephaly, Mucus Membranes Moist Neck: Positive: neck supple, trachea midline. Negative: JVD/HJR Cardiac: Positive: Reg Rate and Rhythm, S1/S2 Lungs: Positive: clear to auscultation (bilaterally), No Wheeze, Rales, Rhonchi Neuro: Positive: Grossly Intact, Motor Function Intact, Coordination Normal, Sensory Function Intact. Negative: Numbness, Weakness Abdomen: Positive: Soft, Active Bowel Sounds. Negative: Tender Skin: Negative: Rash, Suspicious Lesions Musculoskeletal: No Pain, Normal Range of Motion Extremities: Present: upper extr. pulses, lower extr. pulses. Absent: edema - Labs and Meds Lipids 01/07/20 Range/Units 04:15 Triglycerides 198 H (2-149) mg/dL Cholesterol 135 (50-199) mg/dL HDL Cholesterol 53 (40-59) mg/dL Cholesterol/HDL Ratio 2.54 % - Imaging and Cardiology EKG: report reviewed, image reviewed Echo: report reviewed (EF 50-55%; normal LV diastolic filling) - Telemetry EKG Rhythm: Sinus Rhythm - EKG Sinus rhythms and dysrhythmias: sinus rhythm
[2020-01-07] MEDS: MORPHINE 4 MG/1 ML INJ IV PRN (19:44)
[2020-01-08] MEDS: MORPHINE 4 MG/1 ML INJ IV PRN (03:21)
[2020-01-08 08:29] VITALS: BP 141/78
[2020-01-08 10:16] LABS: INR 1.08 (0.87-1.13)
[2020-01-08 10:17] LABS: Partial Thromboplastin Time 30.1 Sec. (24.2-36.6)
[2020-01-08] MEDS ORDERED: SODIUM CHLORIDE 0.9% 500 ML 500 ML IV SCH (10:30)
[2020-01-08] MEDS ORDERED: ASPIRIN EC 325 MG TAB PO ONE (10:32)
[2020-01-08] MEDS ORDERED: SODIUM CHLORIDE 0.9% 500 ML 500 ML ONE (10:32)
[2020-01-08] MEDS ORDERED: HEPARIN/NS 5000 UNIT/500ML 1,000 ML IR ONE (10:37)
[2020-01-08] MEDS ORDERED: HEPARIN 10,000 UNITS/10 ML VIAL ONE (10:37)
[2020-01-08] MEDS ORDERED: NITROGLYCERIN SYRINGE 0 ML ONE (10:38)
[2020-01-08] MEDS ORDERED: VERAPAMIL 5 MG/2 ML INJ ONE (10:38)
[2020-01-08] MEDS ORDERED: LIDOCAINE (2%) 20 MG/1 ML VIAL 20 ML MDV INFILTRATI ONE (10:38)
[2020-01-08 10:49] LABS: BUN/Creatinine Ratio 19; Blood Urea Nitrogen 15 mg/dL (9-20); Calcium 9.7 mg/dL (8.4-10.2); Hemolysis Index 6
[2020-01-08] MEDS ORDERED: ASPIRIN EC 325 MG TAB PO SCH (11:00)
[2020-01-08] MEDS: fentaNYL 100 MCG/2 ML INJ ONE ×2 (11:13→11:20)
[2020-01-08] MEDS: MIDAZOLAM 2 MG/2 ML INJ ONE ×2 (11:13→11:20)
[2020-01-08] MEDS ORDERED: MIDAZOLAM 2 MG/2 ML INJ ONE (11:29)
[2020-01-08] MEDS ORDERED: fentaNYL 100 MCG/2 ML INJ ONE (11:29)
--- NOTE | 2020-01-08 11:58 | Cardiac Catherization Report ---
CARDIAC CATHETERIZATION REPORT INDICATION FOR PROCEDURE: The patient is a 59-year-old -[place] gentleman with history of longstanding hypertension, diabetes mellitus, chronic smoking and alcohol use. He is admitted with chest pain and shortness of breath with exertion, which gets better with rest. Cardiac enzymes were negative. However, nuclear imaging showed evidence of inferolateral ischemia, hence scheduled for cardiac catheterization for definitive diagnosis and treatment. The patient is aware of the procedure, potential complications and alternatives of therapy available. DESCRIPTION OF PROCEDURE: The patient was brought to the catheterization laboratory in a fasting condition. The patient was prepared in a standard fashion. Sterile drapes were applied. The patient was evaluated for moderate sedation and was felt to be appropriate candidate for moderate sedation and received 1 mg of Versed and 100 mg of fentanyl. Subsequently, sterile drapes were applied and local anesthesia was given in the right wrist area and right radial artery puncture was made using 21-gauge arterial puncture needle. Subsequently, 5-Yoruba slender sheath was introduced. Using a Glidewire and also J tipped regular wire, JR4 catheter was used to obtain the angiograms of the right coronary artery and multipurpose catheter was used to obtain the angiograms of the left coronary artery and left ventriculogram done in BRODY and HUMBERTO projection. At the end of the procedure, catheter and sheath were removed. Good hemostasis was achieved with radial band application. The patient tolerated the procedure well. No untoward complications were noted. The patient was monitored throughout the procedure for any side effects from sedation. The patient was monitored with EKG, hemodynamic, and pulse oximetry. The patient tolerated the sedation well. At the end of the procedure, the patient is communicating normally and breathing normally, with no focal deficits. The patient was transferred to the room in stable condition. Following findings were noted. HEMODYNAMICS: 1. Aortic pressure of 139/73. Left ventricular pressure 140/12. No gradient across the aortic valve. Estimated ejection fraction 50-55%. 2. Left ventriculogram done in BRODY projection shows normal sized left ventricle with normal contractility. End-diastolic and systolic volumes are normal. 3. Right coronary artery dominant vessel arises normally from right coronary cusp. This is dominant vessel, angiographically smooth and normal. 4. Left coronary artery arises normally from left coronary cusp. Left main is long, smooth and normal. LAD showed very minimal irregularities in the mid and distal LAD. This is tortuous vessel. Diagonal branch is also without any significant disease. Circumflex artery and its branch are angiographically smooth and normal. FINAL IMPRESSION: 1. Normal sized left ventricle with normal contractility. End-diastolic pressure was normal measuring 12 mmHg. 2. Essentially normal coronary anatomy with only minimal irregularities in the left anterior descending. At this time, the patient does not have any significant angiographic disease to explain his exertional symptoms. However, would continue aggressive risk factor modification. At this time, etiology of his shortness of breath with exertion and chest pain is not clear. Other causes need to be considered. The patient tolerated the procedure well. JOB# [id number] GANESH/HERNANDO
--- NOTE | 2020-01-08 12:14 | Progress Note ---
Assessment and Plan Echo 01/06/2020 reviewed - EF 50-55%; normal LV diastolic filling. S/p LHC today which showed mild CAD. Cont present cardiac regimen. Currently stable cardiac status. Pt may discharge from cardiology standpoint. Recommend pt follow up in our office with Dr. Almaraz within 2 weeks of discharge ([phone]). Pt seen in conjunction with Dr. Almaraz, who agrees with the assessment and plan of care. - Patient Problems (1) Chest pain Current Visit: Yes Status: Acute Qualifiers: Chest pain type: unspecified Qualified Code(s): R07.9 - Chest pain, unspecified (2) Hypertension Current Visit: Yes Status: Chronic Qualifiers: Hypertension type: essential hypertension Qualified Code(s): I10 - Essential (primary) hypertension (3) Hypertriglyceridemia Current Visit: Yes Status: Chronic (4) Type 2 diabetes mellitus Current Visit: Yes Status: Chronic Qualifiers: Diabetes mellitus long chain beamer insulin use: unspecified long chain beamer insulin use status (5) Tobacco abuse Current Visit: Yes Status: Chronic (6) CAD Current Visit: Yes Status: Chronic Subjective Date of service: 01/08/20 Principal diagnosis: Chest Pain Interval history: pt for [facility], no current complaints. in SR on tele. Objective Last Vital Signs Temp 97.6 F 01/08/20 07:36 Pulse 78 01/08/20 07:36 Resp 18 01/08/20 07:36 BP 141/78 01/08/20 07:36 Pulse Ox 98 01/08/20 07:36 - Physical Examination General: No Apparent Distress HEENT: Positive: EOMI, Normocephaly, Mucus Membranes Moist Neck: Positive: neck supple, trachea midline. Negative: JVD/HJR Cardiac: Positive: Reg Rate and Rhythm, S1/S2 Lungs: Positive: Decreased Breath Sounds Neuro: Positive: Grossly Intact, Motor Function Intact, Coordination Normal, Sensory Function Intact. Negative: Numbness, Weakness Abdomen: Positive: Soft, Active Bowel Sounds. Negative: Tender Skin: Negative: Rash, Suspicious Lesions Musculoskeletal: No Pain, Normal Range of Motion Extremities: Present: upper extr. pulses, lower extr. pulses. Absent: edema - Labs and Meds Coagulation 01/08/20 Range/Units 09:47 PT 14.1 (12.2-14.9) Sec. INR 1.08 (0.87-1.13) APTT 30.1 (24.2-36.6) Sec. Comprehensive Metabolic Panel 01/08/20 Range/Units 10:20 Sodium 136 L (137-145) mmol/L Potassium 4.7 (3.6-5.0) mmol/L Chloride 98.8 (98-107) mmol/L Carbon Dioxide 23 (22-30) mmol/L BUN 15 (9-20) mg/dL Creatinine 0.8 (0.8-1.5) mg/dL Glucose 127 H (75-100) mg/dL Calcium 9.7 (8.4-10.2) mg/dL - Imaging and Cardiology EKG: report reviewed, image reviewed Echo: report reviewed (EF 50-55%; normal LV diastolic filling) - EKG Sinus rhythms and dysrhythmias: sinus rhythm
[2020-01-08] MEDS: METOPROLOL TARTRATE 50 MG TAB PO SCH (12:51)
[2020-01-08] MEDS: LISINOPRIL 5 MG TAB PO SCH (12:52)
[2020-01-08] MEDS: MULTIVITAMINS ,THERAPEUTIC TAB PO SCH (12:52)
[2020-01-08] MEDS: PANTOPRAZOLE 40 MG TAB PO SCH (12:52)
--- NOTE | 2020-01-08 13:54 | Discharge Summary ---
Providers - Providers Date of Admission: 01/06/20 08:32 Date of discharge: 01/08/20 Attending physician: LINDSEY MORGAN 01/06/20 06:45 Consult to Physician [CONS] Routine Comment: Consulting Provider: CRYSTAL SALAZAR Physician Instructions: Reason For Exam: Chest pain 01/08/20 12:15 Consult to Cardiac Rehabilitation [CONS] Routine Reason For Exam: Cardiac Rehab Evaluation Primary care physician: [facility], Hospitalization Reason for admission: Chest pain Condition: Critical Hospital course: Patient is a 59-year-old male with a history of tobacco and alcohol abuse that presents emergency room with complaints of chest pain and shortness of breath that started at 2 AM. He states he has a past medical history of hypertension and diabetes. Patient admitted for further evaluation management, Lexiscan showed reversible ischemia, planned for cardiac cath which showed mild coronary artery disease and plan to manage medically. Patient was then discharged home in stable condition with outpatient follow-up. Echo 01/06/2020 reviewed - EF 50-55%; normal LV diastolic filling. MPI stress test showed reversible ischemia with EF of 40% S/p LHC today which showed mild CAD. Cont present cardiac regimen. Discharge diagnosis and Mx: /Chest pain, likely due to coronary artery disease Lexiscan showed reversible defect with EF of 40% Cardiac cath showed mild coronary artery disease and plan to manage medically /Hypertension, continue antihypertensive /Diabetes mellitus type 2, managed with SSI Continue home medications /History of aspergilloma, chest x-ray unchanged from 2019 Continue outpatient follow-up /Nicotine dependence, persistent counseled and recommended cessation Physical exam: GENERAL: well-developed -Gren[place] male lying on bed appeared to be in no discomfort. HEENT: Normocephalic. Atraumatic. No conjunctival congestion or icterus. Patient has moist mucous membranes. NECK: Supple. Trachea midline. CHEST/LUNGS: Clear to auscultated bilaterally, breathing nonlabored. No wheezes crackles or rhonchi. HEART/CARDIOVASCULAR: Regular in rate and rhythm. S1 and S2 positive. ABDOMEN: Abdomen is soft, nontender. Patient has normal bowel sounds. SKIN: There is no rash. Warm and dry. NEURO: No focal motor deficit. Follows command. MUSCULOSKELETAL: No joint effusion or tenderness. EXTRIMITY: No edema, no cyanosis or clubbing. PSYCH: Cooperative. Disposition: DC-01 TO HOME OR SELFCARE Time spent for discharge: 34 minutes Core Measure Documentation - Palliative Care Palliative Care/ Comfort Measures: Not Applicable - Core Measures Any of the following diagnoses?: none Exam - Constitutional Vitals: Temp Pulse Resp BP Pulse Ox 97.4 F L 87 18 141/78 100 01/08/20 12:15 01/08/20 12:15 01/08/20 12:15 01/08/20 12:52 01/08/20 12:15 Plan Activity: advance as tolerated Weight Bearing Status: Non-Weight Bearing Diet: low fat, low carbohydrate Special Instructions: record daily BP diary, record blood sugar diary [facility]Primary Care Provider[facility] - 7 Days ANJELICA NOLAND MD [Staff Physician] - 7 Days Prescriptions: AtorvaSTATin [Lipitor] 40 mg PO QHS #30 tablet Aspirin [Aspirin BABY CHEW TAB] 81 mg PO QDAY #30 tab.chew Metoprolol [Lopressor TAB] 50 mg PO BID #60 tablet Esomeprazole Magnesium [Nexium 24Hr] 20 mg PO DAILY #30 tab lisinopriL [Zestril TAB] 5 mg PO QDAY #30
[2020-01-09] MEDS ORDERED: ASPIRIN 81 MG TAB CHEW PO SCH (10:00)
== END 2020-01-08 17:48 | disposition home or self-care (01) | DRG 287 ==
LOC: ED 03:21 → SUATTDRO 03:21 → 4A 08:32
PROVIDERS: ADMIT Internal Medicine; ATTEND Internal Medicine
PROC: 4A023N7 Measurement of Cardiac Sampling and Pressure, Left Heart, Percutaneous Approach (ICD-10-PCS; principal; 2020-01-08)
PROC: B2111ZZ Fluoroscopy of Multiple Coronary Arteries using Low Osmolar Contrast (ICD-10-PCS; 2020-01-08)
PROC: B2151ZZ Fluoroscopy of Left Heart using Low Osmolar Contrast (ICD-10-PCS; 2020-01-08)
DX: I25.10 Atherosclerotic heart disease of native coronary artery without angina pectoris (principal); B44.89 Other forms of aspergillosis; I10 Essential (primary) hypertension; E11.9 Type 2 diabetes mellitus without complications; E78.1 Pure hyperglyceridemia; F17.210 Nicotine dependence, cigarettes, uncomplicated; K21.9 Gastro-esophageal reflux disease without esophagitis; Z72.89 Other problems related to lifestyle; Z71.6 Tobacco abuse counseling; Z79.899 Other long term (current) drug therapy
CPT/HCPCS: 36415; 71045; 78452; 80048; 80053; 80061; 80307; 81001; 82962; 83036; 83735; 84484; 85025; 85610; 85730; 93005; 93010; 93017; 93306; 93458; 99406; G0378; A9270-GY; A9502; C1769; C1894; J1644; J2250; J2270; J2785; J3010; J7040; Q9967

== ENCOUNTER 2020-02-02 10:20 | Observation (INO) | payer OTHER ==
[2020-02-02] MEDS ORDERED: ONDANSETRON 4 MG/2 ML INJ IV ONE (10:36)
[2020-02-02] MEDS ORDERED: NITROGLYCERIN 2% OINT 1 GM TP ONE (10:36)
[2020-02-02] MEDS ORDERED: fentaNYL 100 MCG/2 ML INJ IV ONE ×2 (10:36→11:41)
--- NOTE | 2020-02-02 10:42 | Emergency Department Report ---
HPI - General Chief Complaint: Chest Pain PUI?: No Time Seen by Provider: 02/02/20 10:31 - HPI HPI: Room 19 The patient is a 59-year-old male present with chief complaint of chest pain. Patient states his symptoms began this morning with left-sided chest pain radiating to his neck. Patient describes the pain is sharp and intermittent in nature. Patient admits to shortness of breath, nausea/vomiting and diaphoresis with this chest pain. The patient currently gives his pain a score of 10/10. The patient states he's never had a heart catheterization ED Past Medical Hx - Past Medical History Hx Hypertension: Yes Hx Diabetes: Yes Hx GERD: Yes Additional medical history: ETOH - Surgical History Additional Surgical History: right arm surgery- to repair artery - Family History Family history: no significant - Social History Smoking Status: Unknown if ever smoked Substance Use Type: None - Medications Home Medications: Home Medications Medication Instructions Recorded Confirmed Last Taken Type Metoclopramide [Reglan TAB] 10 mg PO QID PRN #30 tab 09/09/19 01/06/20 Unknown Rx Multivitamin with Folic Acid [[facility]vs 400 mcg PO QDAY #30 tablet 09/09/19 01/06/20 Unknown Rx One Daily Essential Tablet] Esomeprazole Magnesium [Nexium 20 mg PO DAILY #30 tab 01/06/20 Unknown Rx 24Hr] Aspirin [Aspirin BABY CHEW TAB] 81 mg PO QDAY #30 tab.chew 01/08/20 Unknown Rx AtorvaSTATin [Lipitor] 40 mg PO QHS #30 tablet 01/08/20 Unknown Rx Metoprolol [Lopressor TAB] 50 mg PO BID #60 tablet 01/08/20 Unknown Rx Multivitamin Tab [Multiple Vitamin 1 each PO QDAY tablet 01/08/20 Unknown Rx TAB (Theragran)] lisinopriL [Zestril TAB] 5 mg PO QDAY #30 01/08/20 Unknown Rx ED Review of Systems ROS: Stated complaint: CHEST PAIN Other details as noted in HPI Constitutional: diaphoresis Eyes: denies: eye pain ENT: denies: throat pain Respiratory: shortness of breath Cardiovascular: chest pain Endocrine: no symptoms reported Gastrointestinal: nausea, vomiting Genitourinary: denies: dysuria Musculoskeletal: back pain Neurological: denies: headache Physical Exam - Physical Exam Vital Signs: Vital Signs 02/02/20 10:25 Temperature 98.7 F Pulse Rate 100 H Respiratory 22 Rate Blood Pressure 156/96 [Right] O2 Sat by Pulse 100 Oximetry Physical Exam: GENERAL: The patient is well-developed well-nourished male lying on stretcher appearing to be in mild discomfort HEENT: Normocephalic. Atraumatic. Extraocular motions are intact. Patient has moist mucous membranes. NECK: Supple. Trachea midline CHEST/LUNGS: Clear to auscultation. There is no respiratory distress noted. HEART/CARDIOVASCULAR: Regular. There is no tachycardia. There is no gallop rub or murmur. ABDOMEN: Abdomen is soft, nontender. Patient has normal bowel sounds. There is no abdominal distention. SKIN: There is no rash. There is no edema. There is no diaphoresis. NEURO: The patient is awake, alert, and oriented. The patient is cooperative. The patient has normal speech MUSCULOSKELETAL: There is no evidence of acute injury. ED Course Vital Signs 02/02/20 10:25 Temperature 98.7 F Pulse Rate 100 H Respiratory 22 Rate Blood Pressure 156/96 [Right] O2 Sat by Pulse 100 Oximetry ED Medical Decision Making - Lab Data Result diagrams: 02/02/20 10:45 02/02/20 10:40 Laboratory Tests 02/02/20 02/02/20 02/02/20 10:40 10:45 10:45 WBC 5.5 RBC 4.99 Hgb 14.0 Hct 43.3 MCV 87 MCH 28 MCHC 32 RDW 14.9 Plt Count 403 Lymph % (Auto) 34.5 Josephine % (Auto) 9.0 H Eos % (Auto) 1.0 Baso % (Auto) 1.7 Lymph # 1.9 Josephine # 0.5 Eos # 0.1 Baso # 0.1 Seg Neutrophils % 53.8 Seg Neutrophils # 3.0 PT 15.6 H INR 1.23 H APTT 30.9 Sodium 141 Potassium 5.8 H Chloride 99.8 Carbon Dioxide 23 Anion Gap 24 BUN 15 Creatinine 1.0 Estimated GFR > 60 BUN/Creatinine Ratio 15 Glucose 192 H Calcium 9.9 CK-MB (CK-2) 2.2 Troponin T < 0.010 NT-Pro-B Natriuret Pep 110.7 - EKG Data -: EKG Interpreted by Ia EKG shows normal: sinus rhythm Rate: tachycardia (105 bpm) - EKG Data When compared to previous EKG there are: previous EKG unavailable Interpretation: nonspecific ST-T wave amy (T wave inversion in lead aVL) - Radiology Data Radiology results: report reviewed (Chest x-ray), image reviewed (Chest x-ray) interpreted by me: Chest x-ray-left lung haziness. Left upper lobe scarring [facility] [address] [place] [address] XRay Report Signed Patient: JORGE ANG MR#: [id number] : 1960 Acct:[id number] Age/Sex: 59 / M ADM Date: 02/02/20 Loc: ED Attending Dr: Ordering Physician: DINH PLAZA MD Date of Service: 02/02/20 Procedure(s): XR chest 1V ap Accession Number(s): [id number] cc: DINH PLAZA MD Fluoro Time In Minutes: CHEST 1 VIEW 02/02/2020 9:57 AM INDICATION / CLINICAL INFORMATION: chest pain. COMPARISON: One view of the chest from 01/06/2020. FINDINGS: SUPPORT DEVICES: None. HEART / MEDIASTINUM: No significant abnormality. LUNGS / PLEURA: There are similar left upper lobe pleural-parenchymal opacities. Chronic appearing parenchymal changes are again seen along the remainder of the left lung. The right lung is clear. No pneumothorax. ADDITIONAL FINDINGS: No significant additional findings. IMPRESSION: Stable appearance of the chest compared to 01/06/2020. Signer Name: Tru Gurrola MD Signed: 02/02/2020 11:02 AM Workstation Name: [id number] Transcribed By: MN Dictated By: Tru Gurrola MD Electronically Authenticated By: Tru Gurrola MD Signed Date/Time: 02/02/20 1102 DD/ 1059 TD/TT: - Differential Diagnosis ACS, pericarditis, GERD Critical care attestation.: If time is entered above; I have spent that time in minutes in the direct care of this critically ill patient, excluding procedure time. ED Disposition Clinical Impression: Chest pain Disposition: OP ADMIT IP TO THIS HOSP Is pt being admited?: Yes Does the pt Need Aspirin: Yes Condition: Fair Instructions: Chest Pain (ED) Time of Disposition: 11:33 (Hospitalist paged)
[2020-02-02 10:57] LABS: Basophils # (Auto) 0.1 K/mm3 (0.0-0.1); Basophils % (Auto) 1.7 % (0.0-1.8); Eosinophils # (Auto) 0.1 K/mm3 (0.0-0.4); Hematocrit 43.3 % (35.5-45.6); Lymphocytes # (Auto) 1.9 K/mm3 (1.2-5.4); Lymphocytes % (Auto) 34.5 % (13.4-35.0); Mean Corpuscular HGB Conc 32 % (32-34); Mean Corpuscular Volume 87 fl (84-94); Monocytes # (Auto) 0.5 K/mm3 (0.0-0.8); Platelet Count 403 K/mm3 (140-440); Red Blood Count 4.99 M/mm3 (3.65-5.03); Red Cell Distribution Width 14.9 % (13.2-15.2)
--- NOTE | 2020-02-02 11:06 | XRay Report ---
CHEST 1 VIEW 02/02/2020 9:57 AM INDICATION / CLINICAL INFORMATION: chest pain. COMPARISON: One view of the chest from 01/06/2020. FINDINGS: SUPPORT DEVICES: None. HEART / MEDIASTINUM: No significant abnormality. LUNGS / PLEURA: There are similar left upper lobe pleural-parenchymal opacities. Chronic appearing pa renchymal changes are again seen along the remainder of the left lung. The right lung is clear. No pn eumothorax. ADDITIONAL FINDINGS: No significant additional findings. IMPRESSION: Stable appearance of the chest compared to 01/06/2020. Signer Name: Tru Gurrola MD Signed: 02/02/2020 11:02 AM Workstation Name: [id number]
[2020-02-02 11:10] LABS: INR 1.23 (0.87-1.13)
[2020-02-02 11:11] LABS: Partial Thromboplastin Time 30.9 Sec. (24.2-36.6)
[2020-02-02 11:22] LABS: BUN/Creatinine Ratio 15; Blood Urea Nitrogen 15 mg/dL (9-20); Calcium 9.9 mg/dL (8.4-10.2); Hemolysis Index 10
[2020-02-02 11:23] LABS: Creatine Kinase MB 2.2 ng/mL (0.0-4.0)
[2020-02-02] MEDS ORDERED: HYDROmorphone 1 MG/1 ML INJ IV ONE (12:03)
[2020-02-02] MEDS ORDERED: HYDROmorphone 1 MG/1 ML INJ ONE (12:06)
[2020-02-02] MEDS ORDERED: METOCLOPRAMIDE 10 MG TAB PO PRN (12:06)
--- NOTE | 2020-02-02 12:11 | History and Physical Report ---
History of Present Illness Date of examination: 02/02/20 Date of admission: 02/02/20 11:42 Chief complaint: chest pain History of present illness: The patient is a 59-year-old male with h/o HTN, DM, GERD present with chief complaint of chest pain. Patient states his symptoms began this morning with left-sided chest pain radiating to his neck. Patient describes the pain is sharp and intermittent in nature. Patient admits to shortness of breath, nausea/vomiting and diaphoresis with this chest pain. The patient currently gives his pain a score of 10/10. Patient was admitted last month and was evaluated by extensive cardiac work-up. Today in the ER he has normal troponin, mild T wave inversion. He is being admitted in observation status for further evaluation. Echo 01/06/2020 reviewed - EF 50-55%; normal LV diastolic filling. MPI stress test 01/06/20 showed reversible ischemia with EF of 40% S/p LHC 01/08/20 which showed mild CAD. Cont present cardiac regimen. Past Medical Hx - Past Medical History Hx Hypertension: Yes Hx Diabetes: Yes Hx GERD: Yes Additional medical history: ETOH - Surgical History Additional Surgical History: right arm surgery- to repair artery - Family History Family history: no significant - Social History Smoking Status: Unknown if ever smoked Substance Use Type: None Review of System: Constitutional: no fever, no chills, no weight loss Ears, eyes, nose, mouth and throat: no nasal congestion, no nasal discharge, no sinus pressure, no vision change, no red eye. Neck: No neck pain or rigidity. Cardiovascular:+ chest pain, no orthopnea, no palpitations, no leg swelling Respiratory: No shortness of breath, no cough, no congestion, no wheezing Gastrointestinal: no abdominal pain, no nausea, no vomiting Genitourinary : no dysuria, no hematuria Musculoskeletal: no joint swelling or muscle ache Integumentary: no rash, no pruritis Neurological: no parathesias, no numbness, no tingling Endocrine: no cold or heat intolerance, no polyuria or polydipsia Hematologic/Lymphatic: no easy bruising, no easy bleeding, no gland swelling Allergic/Immunologic: no urticaria, no angioedema. Medications and Allergies Allergies Allergy/AdvReac Type Severity Reaction Status Date / Time No Known Allergies Allergy Verified 09/08/19 15:20 Home Medications Medication Instructions Recorded Confirmed Last Taken Type Metoclopramide [Reglan TAB] 10 mg PO QID PRN #30 tab 09/09/19 02/03/20 Unknown Rx Multivitamin with Folic Acid [Cvs 400 mcg PO QDAY #30 tablet 09/09/19 02/03/20 Unknown Rx One Daily Essential Tablet] Esomeprazole Magnesium [Nexium 20 mg PO DAILY #30 tab 01/06/20 02/03/20 Unknown Rx 24Hr] AtorvaSTATin [Lipitor] 40 mg PO QHS #30 tablet 01/08/20 02/03/20 Unknown Rx Metoprolol [Lopressor TAB] 50 mg PO BID #60 tablet 01/08/20 02/03/20 Unknown Rx Multivitamin Tab [Multiple Vitamin 1 each PO QDAY tablet 01/08/20 02/03/20 Unknown Rx TAB (Theragran)] lisinopriL [Zestril TAB] 5 mg PO QDAY #30 01/08/20 02/03/20 Unknown Rx Gabapentin 300 mg PO QDAY 02/02/20 02/03/20 Unknown History metFORMIN [Glucophage] 500 mg PO BID 02/02/20 02/03/20 Unknown History Active Meds: Active Medications Aspirin (Baby Aspirin) 81 mg PO QDAY [facility] Atorvastatin Calcium (Lipitor) 40 mg PO QHS [facility] Metoclopramide HCl (Reglan) 10 mg PO QID PRN PRN Reason: Nausea Metoprolol Tartrate (Metoprolol) 50 mg PO BID [facility] Miscellaneous Medication (Esomeprazole Magnesium [Nexium 24hr]) 20 mg PO DAILY [facility] Multivitamins (Theragran Tab) 1 each PO QDAY [facility] Exam - Physical Exam Narrative exam: GENERAL: well-developed elderly male lying on bed appeared to be in no discomfort. HEENT: Normocephalic. Atraumatic. No conjunctival congestion or icterus. Patient has moist mucous membranes. NECK: Supple. Trachea midline. CHEST/LUNGS: Clear to auscultated bilaterally, breathing nonlabored. No wheezes crackles or rhonchi. HEART/CARDIOVASCULAR: Regular in rate and rhythm. S1 and S2 positive. ABDOMEN: Abdomen is soft, nontender. Patient has normal bowel sounds. SKIN: There is no rash. Warm and dry. NEURO: No focal motor deficit. Follows command. MUSCULOSKELETAL: No joint effusion or tenderness. EXTRIMITY: No edema, no cyanosis or clubbing. PSYCH: Cooperative. - Constitutional Vitals: Temp Pulse Resp BP Pulse Ox 98.7 F 102 H 22 152/100 100 02/02/20 11:06 02/02/20 11:13 02/02/20 12:02 02/02/20 11:06 02/02/20 11:06 HEART Score - HEART Score History: Moderately suspicious EKG: Non-specific (T wave inverted) Age: 45-65 Risk factors: > 3 risk factors or hx of atherosclerotic disease Troponin: Troponin T < 0.010 ng/mL (0.00-0.029) 02/02/20 10:40 Troponin: < normal limit HEART Score: 5 - Critical Actions Critical Actions: 4-6 pts:12-16.6% risk of adverse cardiac event. Should be admitted Results - Labs CBC & Chem 7: 02/02/20 10:45 02/02/20 12:45 Labs: Abnormal lab results 02/02/20 02/02/20 02/02/20 Range/Units 10:40 10:45 10:45 Teller % (Auto) 9.0 H (0.0-7.3) % PT 15.6 H (12.2-14.9) Sec. INR 1.23 H (0.87-1.13) Potassium 5.8 H (3.6-5.0) mmol/L Glucose 192 H (75-100) mg/dL Assessment and Plan Acute chest pain -- will admit to telemetry bed - monitor with serial CE and EKG - initial troponin negative - will place on Aspirin, statin - as needed SL NTG and iv morphin for pain - Monitor BP, cont BB - cardiac diet now, consult cardiology for further recommendation Hyperkalemia, likely due to medication induced -Stop lisinopril, monitor potassium level Hypertension, monitor BP, resume home meds -Hold lisinopril for hyperkalemia Diabetes mellitus type 2, diet controlled -SSI QACHS Tobacco abuse, nicotine patch as needed GERD, continue PPI History of alcohol abuse -Monitor for withdrawal - provide DVT Px with lovenox -Full code EKG shows normal: sinus rhythm Rate: tachycardia (105 bpm), nonspecific ST-T wave amy (T wave inversion in lead aVL) Chest x-ray-left lung haziness. Left upper lobe scarring
[2020-02-02] MEDS: METOPROLOL TARTRATE 50 MG TAB PO SCH (21:48)
[2020-02-03] MEDS ORDERED: PANTOPRAZOLE 20 MG TAB PO SCH (10:00)
[2020-02-03] MEDS ORDERED: ASPIRIN 81 MG TAB CHEW PO SCH (10:00)
[2020-02-03] MEDS ORDERED: GABAPENTIN 300 MG CAP PO SCH (10:00)
[2020-02-03] MEDS ORDERED: MULTIVITAMINS ,THERAPEUTIC TAB PO SCH (10:00)
[2020-02-03] MEDS: METOPROLOL TARTRATE 50 MG TAB PO SCH (10:04)
[2020-02-03 10:05] VITALS: BP 162/85
--- NOTE | 2020-02-03 10:30 | Consultation ---
History of Present Illness Consult date: 02/03/20 Requesting physician: LINDSEY MORGAN Consult reason: chest pain History of present illness: 59-year-old male with diabetes hypertension having left-sided sharp pain lasting for a few seconds no nausea no vomiting.. no fever. pt is cp free now. negative trop and recent cardiac workup Echo 01/06/2020 reviewed - EF 50-55%; normal LV diastolic filling. MPI stress test 01/06/20 showed reversible ischemia with EF of 40% S/p LHC 01/08/20 which showed mild CAD. Cont present cardiac regimen Past History Past Medical History: diabetes, hyperlipidemia Past Surgical History: denies: Other Social history: denies: no significant social history Family history: denies: no significant family history Medications and Allergies Allergies Allergy/AdvReac Type Severity Reaction Status Date / Time No Known Allergies Allergy Verified 09/08/19 15:20 Home Medications Medication Instructions Recorded Confirmed Last Taken Type Metoclopramide [Reglan TAB] 10 mg PO QID PRN #30 tab 09/09/19 02/03/20 Unknown Rx Multivitamin with Folic Acid [Cvs 400 mcg PO QDAY #30 tablet 09/09/19 02/03/20 Unknown Rx One Daily Essential Tablet] Esomeprazole Magnesium [Nexium 20 mg PO DAILY #30 tab 01/06/20 02/03/20 Unknown Rx 24Hr] AtorvaSTATin [Lipitor] 40 mg PO QHS #30 tablet 01/08/20 02/03/20 Unknown Rx Metoprolol [Lopressor TAB] 50 mg PO BID #60 tablet 01/08/20 02/03/20 Unknown Rx Multivitamin Tab [Multiple Vitamin 1 each PO QDAY tablet 01/08/20 02/03/20 Unknown Rx TAB (Theragran)] lisinopriL [Zestril TAB] 5 mg PO QDAY #30 01/08/20 02/03/20 Unknown Rx Gabapentin 300 mg PO QDAY 02/02/20 02/03/20 Unknown History metFORMIN [Glucophage] 500 mg PO BID 02/02/20 02/03/20 Unknown History Active Meds: Active Medications Aspirin (Baby Aspirin) 81 mg PO QDAY [facility] Last Admin: 02/03/20 10:01 Dose: 81 mg Documented by: Atorvastatin Calcium (Lipitor) 40 mg PO QHS [facility] Last Admin: 05/15/20 21:50 Dose: 40 mg Documented by: Gabapentin (Gabapentin) 300 mg PO QDAY [facility] Last Admin: 02/03/20 10:01 Dose: 300 mg Documented by: Insulin Human Regular (Humulin R) 0 units SUB-Q ACHS [facility]; Protocol Metoclopramide HCl (Reglan) 10 mg PO QID PRN PRN Reason: Nausea Metoprolol Tartrate (Metoprolol) 50 mg PO BID [facility] Last Admin: 02/03/20 10:04 Dose: 50 mg Documented by: Multivitamins (Theragran Tab) 1 each PO QDAY [facility] Last Admin: 02/03/20 10:02 Dose: 1 each Documented by: Pantoprazole Sodium (Protonix) 20 mg PO QDAY [facility] Last Admin: 02/03/20 10:02 Dose: 20 mg Documented by: Review of Systems All systems: negative (hpi) Physical Examination Vital Signs Temp Pulse Resp BP Pulse Ox 98.7 F 100 H 22 156/96 100 02/02/20 10:25 02/02/20 10:25 02/02/20 10:25 02/02/20 10:25 02/02/20 10:25 General appearance: no acute distress, well-nourished HEENT: Positive: PERRL, Mucus Membranes Moist Neck: Positive: neck supple, trachea midline Cardiac: Positive: Reg Rate and Rhythm, S1/S2. Negative: Audible Murmur Lungs: Positive: clear to auscultation, Normal Breath Sounds Neuro: Positive: Grossly Intact Abdomen: Positive: Soft, Active Bowel Sounds. Negative: Tender, Distended Male genitourinary: Positive: normal Skin: Positive: Clear Incision: Cardiac Cath Site Musculoskeletal: No Pain, Normal Range of Motion Extremities: Present: normal. Absent: edema Results 02/02/20 10:45 02/02/20 12:45 Cardiac Enzymes 02/02/20 Range/Units 10:40 CK-MB (CK-2) 2.2 (0.0-4.0) ng/mL Coagulation 02/02/20 Range/Units 10:45 PT 15.6 H (12.2-14.9) Sec. INR 1.23 H (0.87-1.13) APTT 30.9 (24.2-36.6) Sec. CBC 02/02/20 Range/Units 10:45 WBC 5.5 (4.5-11.0) K/mm3 RBC 4.99 (3.65-5.03) M/mm3 Hgb 14.0 (11.8-15.2) gm/dl Hct 43.3 (35.5-45.6) % Plt Count 403 (140-440) K/mm3 Lymph # 1.9 (1.2-5.4) K/mm3 [place] # 0.5 (0.0-0.8) K/mm3 Eos # 0.1 (0.0-0.4) K/mm3 Baso # 0.1 (0.0-0.1) K/mm3 Comprehensive Metabolic Panel 02/02/20 02/02/20 Range/Units 10:40 12:45 Sodium 141 (137-145) mmol/L Potassium 5.8 H 4.1 D (3.6-5.0) mmol/L Chloride 99.8 (98-107) mmol/L Carbon Dioxide 23 (22-30) mmol/L BUN 15 (9-20) mg/dL Creatinine 1.0 (0.8-1.5) mg/dL Glucose 192 H (75-100) mg/dL Calcium 9.9 (8.4-10.2) mg/dL EKG interpretations - Telemetry EKG Rhythm: Sinus Rhythm (nsr non specific st-t) Assessment and Plan Patient with atypical chest pain negative cardiac enzymes no change in EKG and negative cardiac cath may be discharged from a cardiovascular point of view - Patient Problems (1) Chest pain Current Visit: Yes Status: Acute Qualifiers: Chest pain type: unspecified Qualified Code(s): R07.9 - Chest pain, unspecified (2) Hypertension Current Visit: No Status: Chronic Qualifiers: Hypertension type: essential hypertension Qualified Code(s): I10 - Essential (primary) hypertension (3) Hypertriglyceridemia Current Visit: No Status: Chronic (4) Type 2 diabetes mellitus Current Visit: No Status: Chronic Qualifiers: Diabetes mellitus alf insulin use: unspecified watermaster insulin use status
[2020-02-03] MEDS ORDERED: INSULIN REGULAR, HUMAN 100 UNITS/1 ML SUB-Q SCH (11:30)
--- NOTE | 2020-02-03 11:44 | Discharge Summary ---
Providers - Providers Date of Admission: 02/02/20 11:42 Date of discharge: 02/03/20 Attending physician: LINDSEY MORGAN 02/02/20 15:09 Consult to Physician [CONS] Routine Comment: Consulting Provider: ANJELICA NOLAND Physician Instructions: Reason For Exam: chest pain [facility] Condition: Fair Hospital course: The patient is a 59-year-old male with h/o HTN, DM, GERD present with chief complaint of chest pain. Patient was admitted last month and was evaluated by extensive cardiac work-up. In the ER he has normal troponin, mild T wave inversion. He was admitted in observation status for further evaluation. He was monitored with serial troponin which remained normal, cardiology consulted and recommended no further work-up as he has negative cardiac cath last month. Patient was recommended to be abstaining from alcohol and tobacco abuse. Patient was then discharged home in stable condition with outpatient follow-up. Echo 01/06/2020 reviewed - EF 50-55%; normal LV diastolic filling. MPI stress test 01/06/20 showed reversible ischemia with EF of 40% S/p LHC 01/08/20 which showed mild CAD. Cont present cardiac regimen. EKG 02/02/20 shows normal sinus rhythm Rate: tachycardia (105 bpm), nonspecific ST-T wave amy (T wave inversion in lead aVL) Chest x-ray 02/02/20: No infiltrates Discharge diagnosis: Acute chest pain, resolved -Likely due to GERD, placed on PPI on discharge Hyperkalemia, likely due to medication -Lisinopril discontinued Hypertension, continue home meds Diabetes mellitus type 2, continue metformin Tobacco help abuse/alcohol abuse, counseled for cessation GERD, continue PPI Physical exam: GENERAL: well-developed elderly male lying on bed appeared to be in no discomfort. HEENT: Normocephalic. Atraumatic. No conjunctival congestion or icterus. Patient has moist mucous membranes. NECK: Supple. Trachea midline. CHEST/LUNGS: Clear to auscultated bilaterally, breathing nonlabored. No wheezes crackles or rhonchi. HEART/CARDIOVASCULAR: Regular in rate and rhythm. S1 and S2 positive. ABDOMEN: Abdomen is soft, nontender. Patient has normal bowel sounds. SKIN: There is no rash. Warm and dry. NEURO: No focal motor deficit. Follows command. MUSCULOSKELETAL: No joint effusion or tenderness. EXTRIMITY: No edema, no cyanosis or clubbing. PSYCH: Cooperative. Disposition: DC-01 TO HOME OR SELFCARE Time spent for discharge: 34 minutes Core Measure Documentation - Palliative Care Palliative Care/ Comfort Measures: Not Applicable - Core Measures Any of the following diagnoses?: none Exam - Constitutional Vitals: Temp Pulse Resp BP Pulse Ox 99.1 F 95 H 18 142/85 100 02/03/20 08:17 02/03/20 10:04 02/03/20 08:17 02/03/20 10:04 02/03/20 08:17 Plan Activity: advance as tolerated Weight Bearing Status: Weight Bear as Tolerated Diet: low fat, low salt Special Instructions: record daily BP diary, smoking cessation Follow up with: SIMONA FAUSTSWAINSB[facility]O MD SUKHDEV [Primary Care Provider] - 3-5 Days JOÃO AMATO MD [Staff Physician] - 7 Days
== END 2020-02-03 14:31 | disposition home or self-care (01) ==
LOC: ED 10:20 → 4A 11:42
PROVIDERS: ADMIT Internal Medicine; ATTEND Internal Medicine
DX: R07.89 Other chest pain (principal); I10 Essential (primary) hypertension; E87.5 Hyperkalemia; E11.9 Type 2 diabetes mellitus without complications; K21.9 Gastro-esophageal reflux disease without esophagitis; E78.5 Hyperlipidemia, unspecified; E78.1 Pure hyperglyceridemia; F10.10 Alcohol abuse, uncomplicated; Z87.891 Personal history of nicotine dependence; Z79.84 Long term (current) use of oral hypoglycemic drugs; Z79.899 Other long term (current) drug therapy; Z71.6 Tobacco abuse counseling
CPT/HCPCS: 36415; 71045; 80048; 82550; 82553; 83880; 84132; 84484; 85025; 85610; 85730; 93005; 96374; 96375; 96376; 99285; 99406; A9270; G0378; J1170; J2405; J3010; 82962

== ENCOUNTER 2020-03-29 09:30 | Emergency (ER) | payer SELFPAY ==
[2020-03-29] MEDS ORDERED: ASPIRIN 325 MG TAB PO ONE (10:26)
[2020-03-29] MEDS ORDERED: ONDANSETRON 4 MG/2 ML INJ IV ONE (10:53)
--- NOTE | 2020-03-29 10:53 | XRay Report ---
CHEST 1 VIEW 03/29/2020 9:47 AM INDICATION / CLINICAL INFORMATION: Chest Pain. COMPARISON: 02/02/2020 FINDINGS: SUPPORT DEVICES: None. HEART / MEDIASTINUM: No significant abnormality. LUNGS / PLEURA: Stable pleural-parenchymal scarring in the left upper lobe. No pneumothorax. ADDITIONAL FINDINGS: No significant additional findings. IMPRESSION: 1. No adverse change from the prior exam. Signer Name: Macho John MD Signed: 03/29/2020 10:49 AM Workstation Name: [id number]
[2020-03-29 11:43] LABS: Basophils % (Auto) 0.5 % (0.0-1.8); Eosinophils % (Auto) 0.8 % (0.0-4.3); Hematocrit 37.7 % (35.5-45.6); Hemoglobin 12.1 gm/dl (11.8-15.2); Lymphocytes # (Auto) 2.1 K/mm3 (1.2-5.4); Lymphocytes % (Auto) 34.9 % (13.4-35.0); Mean Corpuscular HGB Conc 32 % (32-34); Mean Corpuscular Volume 86 fl (84-94); Monocytes # (Auto) 0.7 K/mm3 (0.0-0.8); Monocytes % (Auto) 11.4 % (0.0-7.3); Platelet Count 222 K/mm3 (140-440); Red Blood Count 4.36 M/mm3 (3.65-5.03); Red Cell Distribution Width 15.5 % (13.2-15.2)
[2020-03-29] MEDS ORDERED: HYDROmorphone 1 MG/1 ML INJ IV ONE ×2 (11:49→13:47)
[2020-03-29] MEDS ORDERED: KETOROLAC 30 MG/1 ML INJ IV ONE (11:49)
[2020-03-29] MEDS ORDERED: CYCLOBENZAPRINE 10 MG TAB PO ONE (11:52)
[2020-03-29 12:06] LABS: BUN/Creatinine Ratio 15; Blood Urea Nitrogen 9 mg/dL (9-20); Calcium 8.6 mg/dL (8.4-10.2); Hemolysis Index 2
--- NOTE | 2020-03-29 13:00 | Emergency Department Report ---
ED Back Pain/Injury HPI - General Chief Complaint: Chest Pain Stated Complaint: CHEST PAIN Time Seen by Provider: 03/29/20 11:41 Source: EMS Limitations: No Limitations - History of Present Illness Initial Comments: 60-year-old male with a past medical history hypertension, alcohol abuse, diabetes, and GERD presents the hospital planing of left sided posterior thorax/back pain since this a.m. Pain started on his way to work. Patient does perform heavy lifting at his job. Pain is constant and sharp in nature rated 8/10 in intensity. Pain is worse with palpation and movement. Patient did have nausea and vomiting. Patient states he does have some mild pain radiating to the chest. Patient denies fever, dysuria, calf tenderness, or leg edema Previous medical record review. Patient has had a cardiac cath in January 08, 2020 showing mild CAD and negative troponin still when chest pain admission in January Patient states he is no longer drinking every day but does admit to drinking during his birthday [birth year] - Related Data Home Medications Medication Instructions Recorded Confirmed Last Taken Gabapentin 300 mg PO QDAY 02/02/20 02/03/20 Unknown metFORMIN [Glucophage] 500 mg PO BID 02/02/20 02/03/20 Unknown Previous Rx's Medication Instructions Recorded Last Taken Type Metoclopramide [Reglan TAB] 10 mg PO QID PRN #30 tab 09/09/19 Unknown Rx Multivitamin with Folic Acid [Cvs 400 mcg PO QDAY #30 tablet 09/09/19 Unknown Rx One Daily Essential Tablet] Esomeprazole Magnesium [Nexium 20 mg PO DAILY #30 tab 01/06/20 Unknown Rx 24Hr] AtorvaSTATin [Lipitor] 40 mg PO QHS #30 tablet 01/08/20 Unknown Rx Metoprolol [Lopressor TAB] 50 mg PO BID #60 tablet 01/08/20 Unknown Rx Multivitamin Tab [Multiple Vitamin 1 each PO QDAY tablet 01/08/20 Unknown Rx TAB (Theragran)] HYDROcodone/APAP 5-325 [Gepp 1 each PO Q4HR PRN #15 tablet 03/29/20 Unknown Rx 5/325] Ibuprofen [Motrin] 600 mg PO Q8H PRN #20 tablet 03/29/20 Unknown Rx Ondansetron [Zofran Odt] 4 mg PO Q8HR PRN #15 tab.rapdis 03/29/20 Unknown Rx Allergies Allergy/AdvReac Type Severity Reaction Status Date / Time No Known Allergies Allergy Verified 09/08/19 15:20 ED Review of Systems ROS: Stated complaint: CHEST PAIN Other details as noted in HPI Comment: All other systems reviewed and negative ED Past Medical Hx - Past Medical History Previous Medical History?: Yes Hx Hypertension: Yes Hx Diabetes: Yes Hx GERD: Yes Additional medical history: ETOH - Surgical History Past Surgical History?: Yes Additional Surgical History: right arm surgery- to repair artery - Social History Smoking Status: Unknown if ever smoked Substance Use Type: Alcohol - Medications Home Medications: Home Medications Medication Instructions Recorded Confirmed Last Taken Type Metoclopramide [Reglan TAB] 10 mg PO QID PRN #30 tab 09/09/19 02/03/20 Unknown Rx Multivitamin with Folic Acid [Cvs 400 mcg PO QDAY #30 tablet 09/09/19 02/03/20 Unknown Rx One Daily Essential Tablet] Esomeprazole Magnesium [Nexium 20 mg PO DAILY #30 tab 01/06/20 02/03/20 Unknown Rx 24Hr] AtorvaSTATin [Lipitor] 40 mg PO QHS #30 tablet 01/08/20 02/03/20 Unknown Rx Metoprolol [Lopressor TAB] 50 mg PO BID #60 tablet 01/08/20 02/03/20 Unknown Rx Multivitamin Tab [Multiple Vitamin 1 each PO QDAY tablet 01/08/20 02/03/20 Unknown Rx TAB (Theragran)] Gabapentin 300 mg PO QDAY 02/02/20 02/03/20 Unknown History metFORMIN [Glucophage] 500 mg PO BID 02/02/20 02/03/20 Unknown History HYDROcodone/APAP 5-325 [Gepp 1 each PO Q4HR PRN #15 tablet 03/29/20 Unknown Rx 5/325] Ibuprofen [Motrin] 600 mg PO Q8H PRN #20 tablet 03/29/20 Unknown Rx Ondansetron [Zofran Odt] 4 mg PO Q8HR PRN #15 tab.rapdis 03/29/20 Unknown Rx ED Physical Exam - General Limitations: No Limitations - Other Other exam information: General: No acute distress Head: Atraumatic Eyes: normal appearance ENT: Moist mucous membranes Neck: Normal appearance, no midline tenderness Chest: Clear to auscultation bilaterally CV: Regular rate and rhythm Abdomen: Soft, normal bowel sounds, nontender, nondistended, no rebound or guarding Back: Normal inspection, no midline tenderness, reproducible tenderness to the left paraspinal muscles of the lower back and to a lesser extent the left lower posterior thorax Extremity: Normal inspection, full range of motion Neuro: Alert O x 3, no facial asymmetry, speech clear, no gross motor sensory deficit Psych: Appropriate behavior Skin: No rash ED Course Vital Signs 03/29/20 03/29/20 09:57 15:38 Temperature 97.9 F Pulse Rate 98 H 82 Respiratory 22 18 Rate Blood Pressure 178/98 Blood Pressure 118/52 [Left] O2 Sat by Pulse 97 98 Oximetry ED Medical Decision Making - Lab Data Result diagrams: 03/29/20 11:23 03/29/20 11:23 Lab Results 03/29/20 03/29/20 03/29/20 Range/Units 11:23 11:23 12:57 WBC 5.9 (4.5-11.0) K/mm3 RBC 4.36 (3.65-5.03) M/mm3 Hgb 12.1 (11.8-15.2) gm/dl Hct 37.7 (35.5-45.6) % MCV 86 (84-94) fl MCH 28 (28-32) pg MCHC 32 (32-34) % RDW 15.5 H (13.2-15.2) % Plt Count 222 (140-440) K/mm3 Lymph % (Auto) 34.9 (13.4-35.0) % [place] % (Auto) 11.4 H (0.0-7.3) % Eos % (Auto) 0.8 (0.0-4.3) % Baso % (Auto) 0.5 (0.0-1.8) % Lymph # 2.1 (1.2-5.4) K/mm3 [place] # 0.7 (0.0-0.8) K/mm3 Eos # 0.0 (0.0-0.4) K/mm3 Baso # 0.0 (0.0-0.1) K/mm3 Seg Neutrophils % 52.4 (40.0-70.0) % Seg Neutrophils # 3.1 (1.8-7.7) K/mm3 Sodium 141 (137-145) mmol/L Potassium 4.0 (3.6-5.0) mmol/L Chloride 107.6 H (98-107) mmol/L Carbon Dioxide 20 L (22-30) mmol/L Anion Gap 17 mmol/L BUN 9 (9-20) mg/dL Creatinine 0.6 L (0.8-1.5) mg/dL Estimated GFR > 60 ml/min BUN/Creatinine Ratio 15 % Glucose 95 (75-100) mg/dL Calcium 8.6 (8.4-10.2) mg/dL Troponin T < 0.010 (0.00-0.029) ng/mL Urine Color Colorless (Yellow) Urine Turbidity Clear (Clear) Urine pH 7.0 (5.0-7.0) Ur Specific [place] 1.003 (1.003-1.030) Urine Protein <15 mg/dl (Negative) mg/dL Urine Glucose (UA) Neg (Negative) mg/dL Urine Ketones Neg (Negative) mg/dL Urine Blood Neg (Negative) Urine Nitrite Neg (Negative) Urine Bilirubin Neg (Negative) Urine Urobilinogen < 2.0 (<2.0) mg/dL Ur Leukocyte Esterase Neg (Negative) Urine WBC (Auto) < 1.0 (0.0-6.0) /HPF Urine RBC (Auto) < 1.0 (0.0-6.0) /HPF U Epithel Cells (Auto) 1.0 (0-13.0) /HPF Urine Bacteria (Auto) 1+ (Negative) /HPF Urine Mucus Few /HPF Urine Opiates Screen Urine Methadone Screen Ur Barbiturates Screen Ur Phencyclidine Scrn Ur Amphetamines Screen U Benzodiazepines Scrn Urine Cocaine Screen U Marijuana (THC) Screen Drugs of Abuse Note 03/29/20 Range/Units 12:57 WBC (4.5-11.0) K/mm3 RBC (3.65-5.03) M/mm3 Hgb (11.8-15.2) gm/dl Hct (35.5-45.6) % MCV (84-94) fl MCH (28-32) pg MCHC (32-34) % RDW (13.2-15.2) % Plt Count (140-440) K/mm3 Lymph % (Auto) (13.4-35.0) % [place] % (Auto) (0.0-7.3) % Eos % (Auto) (0.0-4.3) % Baso % (Auto) (0.0-1.8) % Lymph # (1.2-5.4) K/mm3 [place] # (0.0-0.8) K/mm3 Eos # (0.0-0.4) K/mm3 Baso # (0.0-0.1) K/mm3 Seg Neutrophils % (40.0-70.0) % Seg Neutrophils # (1.8-7.7) K/mm3 Sodium (137-145) mmol/L Potassium (3.6-5.0) mmol/L Chloride (98-107) mmol/L Carbon Dioxide (22-30) mmol/L Anion Gap mmol/L BUN (9-20) mg/dL Creatinine (0.8-1.5) mg/dL Estimated GFR ml/min BUN/Creatinine Ratio % Glucose (75-100) mg/dL Calcium (8.4-10.2) mg/dL Troponin T (0.00-0.029) ng/mL Urine Color (Yellow) Urine Turbidity (Clear) Urine pH (5.0-7.0) Ur Specific [place] (1.003-1.030) Urine Protein (Negative) mg/dL Urine Glucose (UA) (Negative) mg/dL Urine Ketones (Negative) mg/dL Urine Blood (Negative) Urine Nitrite (Negative) Urine Bilirubin (Negative) Urine Urobilinogen (<2.0) mg/dL Ur Leukocyte Esterase (Negative) Urine WBC (Auto) (0.0-6.0) /HPF Urine RBC (Auto) (0.0-6.0) /HPF U Epithel Cells (Auto) (0-13.0) /HPF Urine Bacteria (Auto) (Negative) /HPF Urine Mucus /HPF Urine Opiates Screen Negative Urine Methadone Screen Negative Ur Barbiturates Screen Negative Ur Phencyclidine Scrn Negative Ur Amphetamines Screen Negative U Benzodiazepines Scrn Negative Urine Cocaine Screen Negative U Marijuana (THC) Screen Negative Drugs of Abuse Note Disclamer - EKG Data -: EKG Interpreted by [place] EKG shows normal: sinus rhythm, ST-T waves (No ST elevation CA) Rate: normal (81) - EKG Data When compared to previous EKG there are: no significant change - Radiology Data Radiology results: report reviewed CHEST 1 VIEW 03/29/2020 9:47 AM INDICATION / CLINICAL INFORMATION: Chest Pain. COMPARISON: 02/02/2020 FINDINGS: SUPPORT DEVICES: None. HEART / MEDIASTINUM: No significant abnormality. LUNGS / PLEURA: Stable pleural-parenchymal scarring in the left upper lobe. No pneumothorax. ADDITIONAL FINDINGS: No significant additional findings. IMPRESSION: 1. No adverse change from the prior exam. CT abdomen pelvis wo con INDICATION: left flank pain. TECHNIQUE: All CT scans at this location are performed using the following dose modulation technique: Automated exposure control. Helical slices were obtained through the abdomen and pelvis. No contrast is administered. COMPARISON: CT scan dated 07/11/2019 FINDINGS: Abdomen: There is bronchiectasis noted in the left lower lobe there are patchy peripheral groundglass opacities in the lung bases. The liver, spleen, pancreas, adrenal glands, and kidneys show no acute abnormality. There is no hydronephrosis. There are no renal or ureteral calculi. The aorta is nor mal in diameter. There is no adenopathy. The appendix is unremarkable. There is no obstruction, inflammation, or free air. Pelvis: Atherosclerotic calcifications are noted in the iliac arteries. There is no adenopathy. There is no obstruction or inflammation. On review of bone windows, no acute osseous abnormalities are seen. IMPRESSION: 1. There is no obstruction, inflammation, or free air in the abdomen or pelvis. There are no renal or ureteral calculi. There is no hydronephrosis. There are peripheral groundglass opacities in the right and left lower lobe the lung. These are mild. These are not specific. His could represent mild focal edema or lower airways disease. The possibility that this represents an atypical or viral pneumonia is considered. - Medical Decision Making Pt with reproducible left paraspinal muscular pain with normal labs, urine, and CT abdomen pelvis noncontrast. Patient reported chest pain in triage and has a EKG similar to previous, troponin negative x2, and has had a cardiac cath performed this year. Pain improved with Dilaudid, Toradol, and Zofran. Patient will be discharged with pain medications for muscle skeletal back pain incidental nonspecific lung findings noted. . pt does not have infectious sx. Critical Care Time: No Critical care attestation.: If time is entered above; I have spent that time in minutes in the direct care of this critically ill patient, excluding procedure time. ED Disposition Clinical Impression: Low back strain Disposition: DC- TO HOME OR SELFCARE Is pt being admited?: No Does the pt Need Aspirin: No Condition: Stable Instructions: Low Back Strain (ED) Additional Instructions: Take the medication as prescribed. Follow-up with your doctor or doctor/clinic provided. Return if symptoms worsen as indicated by your discharge i nstructions. Prescriptions: Ibuprofen [Motrin] 600 mg PO Q8H PRN #20 tablet PRN Reason: Pain HYDROcodone/APAP 5-325 [Gepp 5/325] 1 each PO Q4HR PRN #15 tablet PRN Reason: Pain Ondansetron [Zofran Odt] 4 mg PO Q8HR PRN #15 tab.rapdis PRN Reason: Nausea And Vomiting Referrals: PRIMARY CAREMD [Primary Care Provider] - 3-5 Days TIM TOBIAS MD [Staff Physician] - 3-5 Days [facility] [Provider Group] - 3-5 Days
[2020-03-29 13:12] LABS: Bacteria,Urine 1+ /HPF (Negative); Bilirubin,Urine NEG (Negative); Blood,Urine NEG (Negative); Color,Urine Colorless (Yellow); Mucus,Urine FEW /HPF; Protein,Urine <15 mg/dL mg/dL (Negative); RBC,Urine < 1.0 /HPF (0.0-6.0); Urobilinogen,Urine < 2.0 mg/dL (<2.0)
[2020-03-29 13:13] LABS: WBC,Urine < 1.0 /HPF (0.0-6.0)
[2020-03-29 13:15] LABS: Amphetamine Screen,Urine Negative; Benzodiazepines Screen,Urine Negative; Cannabinoid Screen,Urine Negative; Cocaine Screen,Urine Negative; Methadone Screen,Urine Negative; Opiate Screen,Urine Negative
--- NOTE | 2020-03-29 13:50 | Cat Scan Report ---
CT abdomen pelvis wo con INDICATION: left flank pain. TECHNIQUE: All CT scans at this location are performed using the following dose modulation technique: Automated exposure control. Helical slices were obtained through the abdomen and pelvis. No contrast is adminis tered. COMPARISON: CT scan dated 07/11/2019 FINDINGS: Abdomen: There is bronchiectasis noted in the left lower lobe there are patchy peripheral groundglass opacities in the lung bases. The liver, spleen, pancreas, adrenal glands, and kidneys show no acute abnormality. There is no hydro nephrosis. There are no renal or ureteral calculi. The aorta is normal in diameter. There is no adenopathy. The appendix is unremarkable. There is no obstruction, inflammation, or free air. Pelvis: Atherosclerotic calcifications are noted in the iliac arteries. There is no adenopathy. There is no obstruction or inflammation. On review of bone windows, no acute osseous abnormalities are seen. IMPRESSION: 1. There is no obstruction, inflammation, or free air in the abdomen or pelvis. There are no renal or ureteral calculi. There is no hydronephrosis. There are peripheral groundglass opacities in the right and left lower lobe the lung. These are mild. These are not specific. His could represent mild focal edema or lower airways disease. The possibili ty that this represents an atypical or viral pneumonia is considered. Signer Name: Carlos Penaloza MD Signed: 03/29/2020 1:46 PM Workstation Name: [id number]
[2020-03-29 18:28] VITALS: BP 122/54
[2020-03-29] MEDS ORDERED: IBUPROFEN 600 MG TAB PO ONE ×2 (19:58→20:01)
== END 2020-03-29 20:08 | disposition home or self-care (01) ==
LOC: ED 09:30
DX: S39.012A Strain of muscle, fascia and tendon of lower back, initial encounter (principal); I10 Essential (primary) hypertension; E11.9 Type 2 diabetes mellitus without complications; K21.9 Gastro-esophageal reflux disease without esophagitis; Z79.899 Other long term (current) drug therapy; Z98.890 Other specified postprocedural states; X58.XXXA Exposure to other specified factors, initial encounter; Y93.89 Activity, other specified; Y92.89 Other specified places as the place of occurrence of the external cause; Y99.8 Other external cause status
CPT/HCPCS: 36415; 71045; 74176; 80048; 80307; 81001; 84484; 85025; 93005; 96374; 96375; 96376; 99285; J1170; J1885; J2405

== ENCOUNTER 2020-04-26 12:28 | Emergency (ER) | payer SELFPAY ==
--- NOTE | 2020-04-26 13:10 | XRay Report ---
CHEST 2 VIEWS INDICATION: Chest Pain. COMPARISON: 03/29/2020 FINDINGS: Support devices: None. Heart: Within normal limits. Lungs/pleura: Stable pleural-parenchymal disease at the left lung apex. The remainder the lungs are c lear. No pneumothorax. Additional findings: None. IMPRESSION: No change since 03/29/2020. Probable chronic scarring in the left upper lobe. Signer Name: Edwin Hutchins Jr, MD Signed: 04/26/2020 1:06 PM Workstation Name: [id number]
[2020-04-26 13:27] LABS: Basophils # (Auto) 0.1 K/mm3 (0.0-0.1); Eosinophils % (Auto) 0.3 % (0.0-4.3); Hematocrit 44.8 % (35.5-45.6); Hemoglobin 14.8 gm/dl (11.8-15.2); Lymphocytes # (Auto) 1.8 K/mm3 (1.2-5.4); Lymphocytes % (Auto) 21.5 % (13.4-35.0); Mean Corpuscular HGB Conc 33 % (32-34); Mean Corpuscular Volume 85 fl (84-94); Monocytes # (Auto) 0.8 K/mm3 (0.0-0.8); Platelet Count 201 K/mm3 (140-440); Red Blood Count 5.24 M/mm3 (3.65-5.03); Red Cell Distribution Width 15.3 % (13.2-15.2)
[2020-04-26 13:58] LABS: Alanine Aminotransferase 34 units/L (7-56); Albumin 4.7 g/dL (3.9-5); BUN/Creatinine Ratio 20; Blood Urea Nitrogen 24 mg/dL (9-20); Calcium 10.1 mg/dL (8.4-10.2); Hemolysis Index 51
[2020-04-26] MEDS ORDERED: KETOROLAC 30 MG/1 ML INJ IV ONE (14:18)
[2020-04-26] MEDS ORDERED: LORazepam 2 MG/ML VIAL IV PRN ×3 (14:18)
[2020-04-26] MEDS ORDERED: diazePAM 10 MG/2 ML SYRINGE IV ONE (14:18)
[2020-04-26] MEDS ORDERED: chlordiazePOXIDE 25 MG CAP PO PRN ×2 (14:18)
[2020-04-26] MEDS ORDERED: SODIUM CHLORIDE 0.9% 1000 ML 2,000 ML IV ONE (14:18)
--- NOTE | 2020-04-26 14:26 | Emergency Department Report ---
ED General Adult HPI - General Chief complaint: Chest Pain Stated complaint: CHEST PAIN PUI?: No Time Seen by Provider: 04/26/20 13:52 Source: patient, RN notes reviewed, old records reviewed Mode of arrival: Ambulatory Limitations: No Limitations - History of Present Illness Initial comments: Patient is a 60-year-old gentleman, [id number], whom I have evaluated in the past, with a longstanding past medical history of hypertension, diabetes, chronic smoking and tobacco use. I have evaluated this patient multiple times in the past for multiple complaints. 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 The patient had a cardiac catheterization performed at this hospital December of this year, which was negative for significant coronary artery disease. He also has a chronic left upper lobe infiltrate/scar Today, patient presents to the ER with a complaint of central and left-sided chest wall pain, that started while he was outside and working, painting, and heavy lifting. He denies travel, surgeries, posterior leg pain and leg swelling, and DVT, pulmonary embolism risk factors. The chest wall pain does not radiate to the back, arms or neck. There is no vomiting or diaphoresis. He has chronic [place] rtness of breath. He states he did not consume alcohol recently, he reports that he is not homicidal or suicidal. He does report that he is anxious, with diffuse muscular cramps. -: Gradual, hour(s) Location: chest Radiation: non-radiation Quality: aching Consistency: constant Improves with: rest Worsens with: movement - Related Data Home Medications Medication Instructions Recorded Confirmed Last Taken Gabapentin 300 mg PO QDAY 02/02/20 02/03/20 Unknown metFORMIN [Glucophage] 500 mg PO BID 02/02/20 02/03/20 Unknown Previous Rx's Medication Instructions Recorded Last Taken Type Metoclopramide [Reglan TAB] 10 mg PO QID PRN #30 tab 09/09/19 Unknown Rx Multivitamin with Folic Acid [Cvs 400 mcg PO QDAY #30 tablet 09/09/19 Unknown Rx One Daily Essential Tablet] Esomeprazole Magnesium [Nexium 20 mg PO DAILY #30 tab 01/06/20 Unknown Rx 24Hr] AtorvaSTATin [Lipitor] 40 mg PO QHS #30 tablet 01/08/20 Unknown Rx Metoprolol [Lopressor TAB] 50 mg PO BID #60 tablet 01/08/20 Unknown Rx Multivitamin Tab [Multiple Vitamin 1 each PO QDAY tablet 01/08/20 Unknown Rx TAB (Theragran)] Ibuprofen [Motrin] 600 mg PO Q8H PRN #20 tablet 03/29/20 Unknown Rx Ondansetron [Zofran Odt] 4 mg PO Q8HR PRN #15 tab.rapdis 03/29/20 Unknown Rx Acetaminophen [Non-Aspirin Extra 500 mg PO Q6HR PRN #30 tablet 04/26/20 Unknown Rx Strength] Famotidine [Pepcid] 20 mg PO BID #60 tablet 04/26/20 Unknown Rx Ibuprofen [Motrin] 600 mg PO Q8H PRN #30 tablet 04/26/20 Unknown Rx Multivitamin with Folic Acid [Cvs 400 mcg PO QDAY #30 tablet 04/26/20 Unknown Rx One Daily Essential Tablet] Allergies Allergy/AdvReac Type Severity Reaction Status Date / Time No Known Allergies Allergy Verified 09/08/19 15:20 ED Review of Systems ROS: Stated complaint: CHEST PAIN Other details as noted in HPI Constitutional: malaise. denies: fever Eyes: denies: eye discharge ENT: denies: congestion Respiratory: denies: wheezing Cardiovascular: chest pain Gastrointestinal: denies: abdominal pain, nausea, vomiting Musculoskeletal: arthralgia, myalgia Skin: denies: lesions Neurological: headache Psychiatric: anxiety. denies: homicidal thoughts, suicidal thoughts ED Past Medical Hx - Past Medical History Previous Medical History?: Yes Hx Hypertension: Yes Hx Diabetes: Yes Hx GERD: Yes Additional medical history: ETOH - Surgical History Past Surgical History?: Yes Additional Surgical History: right arm surgery- to repair artery - Social History Smoking Status: Current Every Day Smoker Substance Use Type: Alcohol - Medications Home Medications: Home Medications Medication Instructions Recorded Confirmed Last Taken Type Metoclopramide [Reglan TAB] 10 mg PO QID PRN #30 tab 09/09/19 02/03/20 Unknown Rx Multivitamin with Folic Acid [Cvs 400 mcg PO QDAY #30 tablet 09/09/19 02/03/20 Unknown Rx One Daily Essential Tablet] Esomeprazole Magnesium [Nexium 20 mg PO DAILY #30 tab 01/06/20 02/03/20 Unknown Rx 24Hr] AtorvaSTATin [Lipitor] 40 mg PO QHS #30 tablet 01/08/20 02/03/20 Unknown Rx Metoprolol [Lopressor TAB] 50 mg PO BID #60 tablet 01/08/20 02/03/20 Unknown Rx Multivitamin Tab [Multiple Vitamin 1 each PO QDAY tablet 01/08/20 02/03/20 Unknown Rx TAB (Theragran)] Gabapentin 300 mg PO QDAY 02/02/20 02/03/20 Unknown History metFORMIN [Glucophage] 500 mg PO BID 02/02/20 02/03/20 Unknown History Ibuprofen [Motrin] 600 mg PO Q8H PRN #20 tablet 03/29/20 Unknown Rx Ondansetron [Zofran Odt] 4 mg PO Q8HR PRN #15 tab.rapdis 03/29/20 Unknown Rx Acetaminophen [Non-Aspirin Extra 500 mg PO Q6HR PRN #30 tablet 04/26/20 Unknown Rx Strength] Famotidine [Pepcid] 20 mg PO BID #60 tablet 04/26/20 Unknown Rx Ibuprofen [Motrin] 600 mg PO Q8H PRN #30 tablet 04/26/20 Unknown Rx Multivitamin with Folic Acid [Cvs 400 mcg PO QDAY #30 tablet 04/26/20 Unknown Rx One Daily Essential Tablet] ED Physical Exam - General Limitations: No Limitations General appearance: alert, anxious, in distress - Head Head exam: Present: atraumatic, normocephalic - Eye Eye exam: Present: normal appearance, EOMI. Absent: nystagmus - ENT ENT exam: Present: normal exam, mucous membranes dry, normal external ear exam, other (Tongue fasciculations noted) - Neck Neck exam: Present: normal inspection, full ROM. Absent: tenderness, meningismus - Respiratory Respiratory exam: Present: normal lung sounds bilaterally, chest wall tendern ess. Absent: respiratory distress - Cardiovascular Cardiovascular Exam: Present: normal rhythm, tachycardia, normal heart sounds. Absent: systolic murmur, diastolic murmur, rubs, gallop - GI/Abdominal GI/Abdominal exam: Present: soft, normal bowel sounds. Absent: distended, tenderness, guarding, rebound, rigid, pulsatile mass - Rectal Rectal exam: Present: deferred - Extremities Exam Extremities exam: Present: normal inspection, full ROM, other (2+ pulses noted in the bilateral upper and lower extremities. There is no palpable cord. negative Homans sign. Muscular compartments are soft. The pelvis is stable.). Absent: pedal edema, calf tenderness - Back Exam Back exam: Present: normal inspection, full ROM. Absent: tenderness, CVA tenderness (R), CVA tenderness (L), paraspinal tenderness, vertebral tenderness - Neurological Exam Neurological exam: Present: alert, oriented X3, other (No facial droop. Tongue midline. Extraocular movements intact bilaterally. Facial sensation intact to light touch in V1, V2, V3 distribution bilaterally. 5 and a 5 strength in 4 extremities. Sensation intact to light touch in 4 extremities.). Absent: motor sensory deficit - Psychiatric Psychiatric exam: Present: anxious - Skin Skin exam: Present: warm, dry, intact, normal color. Absent: rash ED Course Vital Signs 04/26/20 04/26/20 04/26/20 12:35 13:58 14:00 Temperature 97.9 F Pulse Rate 120 H Respiratory 24 Rate Blood Pressure 150/88 Blood Pressure [Left] O2 Sat by Pulse 100 99 99 Oximetry 04/26/20 04/26/20 04/26/20 14:15 14:31 14:37 Temperature Pulse Rate 110 H Respiratory 16 Rate Blood Pressure 126/80 152/85 Blood Pressure 117/75 [Left] O2 Sat by Pulse 100 100 96 Oximetry 04/26/20 04/26/20 04/26/20 14:45 15:00 15:15 Temperature Pulse Rate Respiratory Rate Blood Pressure 106/73 111/71 107/67 Blood Pressure [Left] O2 Sat by Pulse 100 100 Oximetry 04/26/20 04/26/20 04/26/20 15:30 15:45 16:00 Temperature Pulse Rate Respiratory Rate Blood Pressure 104/66 107/67 105/68 Blood Pressure [Left] O2 Sat by Pulse 98 99 100 Oximetry 04/26/20 04/26/20 04/26/20 16:09 16:15 16:30 Temperature Pulse Rate 70 Respiratory 16 Rate Blood Pressure 106/70 106/68 Blood Pressure 105/68 [Left] O2 Sat by Pulse 100 100 100 Oximetry 04/26/20 04/26/20 04/26/20 16:45 17:00 17:16 Temperature Pulse Rate Respiratory Rate Blood Pressure 103/68 114/71 119/77 Blood Pressure [Left] O2 Sat by Pulse 100 100 Oximetry 04/26/20 04/26/20 04/26/20 17:30 17:46 18:00 Temperature Pulse Rate Respiratory Rate Blood Pressure 122/79 124/75 120/72 Blood Pressure [Left] O2 Sat by Pulse 99 100 99 Oximetry 04/26/20 04/26/20 04/26/20 18:06 18:16 18:30 Temperature Pulse Rate 84 Respiratory 16 Rate Blood Pressure 129/73 119/73 Blood Pressure 120/72 [Left] O2 Sat by Pulse 96 100 100 Oximetry 04/26/20 04/26/20 04/26/20 18:46 19:00 19:16 Temperature Pulse Rate Respiratory Rate Blood Pressure 114/73 119/73 124/74 Blood Pressure [Left] O2 Sat by Pulse 100 100 Oximetry 04/26/20 04/26/20 04/26/20 19:30 19:46 20:00 Temperature Pulse Rate Respiratory Rate Blood Pressure 127/74 120/71 125/70 Blood Pressure [Left] O2 Sat by Pulse 100 100 100 Oximetry 04/26/20 04/26/20 04/26/20 20:15 20:30 20:46 Temperature Pulse Rate Respiratory Rate Blood Pressure 122/70 117/63 137/75 Blood Pressure [Left] O2 Sat by Pulse 100 99 100 Oximetry 04/26/20 04/26/20 04/26/20 21:00 21:16 21:30 Temperature Pulse Rate Respiratory Rate Blood Pressure 115/67 120/60 104/62 Blood Pressure [Left] O2 Sat by Pulse 98 97 Oximetry 04/26/20 04/26/20 04/26/20 21:46 22:00 22:15 Temperature Pulse Rate Respiratory Rate Blood Pressure 101/66 100/65 115/67 Blood Pressure [Left] O2 Sat by Pulse 98 97 99 Oximetry 04/26/20 04/26/20 22:30 22:33 Temperature Pulse Rate 83 Respiratory Rate Blood Pressure 100/60 Blood Pressure [Left] O2 Sat by Pulse 98 Oximetry - Reevaluation(s) Reevaluation #1: 04/26/20 14:57 Differential diagnosis, include but not limited to: Costochondritis, alcohol dependence, alcohol withdrawal, electrolyte derangement/hypovolemic hyponatremia Assessment and plan: 60-year-old gentleman with left-sided chest wall pain, which is reproducible, had an unremarkable cardiac catheterization at this hospital 4 months ago, who does not have DVT or pulmonary embolism risk factors, low risk by Wells criteria, who occasionally presents to this hospital intoxicated and/or in withdrawal. Check EKG x1, troponin x2, screening laboratory studies. Patient found to have evidence of dehydration via dry mucous membranes, and mild hyponatremia, suspect that this is likely multifactorial, likely hypovolemic hyponatremia, likely secondary to chronic alcoholism, and perhaps working in the hot outdoors. He will be given fluids, ketorolac, Valium, repeat laboratory studies pending. Repeat troponin pending. X-ray of the chest unchanged from prior. We will reassess after initial therapies have been initiated. Reevaluation #2: 04/26/20 15:21 Patient sleeping comfortably at this time, and in no acute distress. Heart rate now 80 bpm. Blood pressure within normal limits. Reevaluation #3: 04/26/20 15:41 Care will be transferred to the oncoming ER physician, Dr. Azael Alvarez, for final reevaluation, to follow-up repeat laboratory studies and final vital signs. Anticipated discharge with supportive care ED Medical Decision Making - Lab Data Result diagrams: 04/26/20 13:12 04/26/20 14:26 Vital Signs 04/26/20 12:35 Temperature 97.9 F Pulse Rate 120 H Respiratory 24 Rate O2 Sat by Pulse 100 Oximetry Lab Results 04/26/20 04/26/20 Range/Units 13:12 13:12 WBC 8.5 (4.5-11.0) K/mm3 RBC 5.24 H (3.65-5.03) M/mm3 Hgb 14.8 (11.8-15.2) gm/dl Hct 44.8 (35.5-45.6) % MCV 85 (84-94) fl MCH 28 (28-32) pg MCHC 33 (32-34) % RDW 15.3 H (13.2-15.2) % Plt Count 201 (140-440) K/mm3 Lymph % (Auto) 21.5 (13.4-35.0) % Bates % (Auto) 9.0 H (0.0-7.3) % Eos % (Auto) 0.3 (0.0-4.3) % Baso % (Auto) 1.0 (0.0-1.8) % Lymph # 1.8 (1.2-5.4) K/mm3 Bates # 0.8 (0.0-0.8) K/mm3 Eos # 0.0 (0.0-0.4) K/mm3 Baso # 0.1 (0.0-0.1) K/mm3 Seg Neutrophils % 68.2 (40.0-70.0) % Seg Neutrophils # 5.8 (1.8-7.7) K/mm3 Sodium 129 L (137-145) mmol/L Potassium 4.0 (3.6-5.0) mmol/L Chloride 90.5 L (98-107) mmol/L Carbon Dioxide 20 L (22-30) mmol/L Anion Gap 23 mmol/L BUN 24 H (9-20) mg/dL Creatinine 1.2 (0.8-1.3) mg/dL Estimated GFR > 60 ml/min BUN/Creatinine Ratio 20 % Glucose 202 H (75-100) mg/dL Calcium 10.1 (8.4-10.2) mg/dL Total Bilirubin 1.10 (0.1-1.2) mg/dL AST 45 H (5-40) units/L ALT 34 (7-56) units/L Alkaline Phosphatase 95 (35-129) units/L Troponin T < 0.010 (0.00-0.029) ng/mL Total Protein 8.4 H (6.3-8.2) g/dL Albumin 4.7 (3.9-5) g/dL Albumin/Globulin Ratio 1.3 % - EKG Data -: EKG Interpreted by Mt EKG shows normal: sinus rhythm Rate: tachycardia - EKG Data When compared to previous EKG there are: no significant change 04/26/20 14:57 EKG today shows sinus tachycardia, 110 bpm, normal axis, QTC 449 ms, left ventricular hypertrophy, motion artifact, abnormal EKG, not a STEMI, unchanged from prior EKG - Radiology Data Radiology results: report reviewed, image reviewed Print Report Referring Physician: TRELL SOW Patient Name: JORGE ANG Date of : 1960 Sex: Male Report Date: 2020-04-26 Report Status: Finalized Findings [facility] [address] [place] [address] XRay Report Signed Patient: JORGE ANG MR#: [id number] : 1960 Acct:[id number] Age/Sex: 60 / M ADM Date: 04/26/20 Loc: ED Attending Dr: Ordering Physician: ILDEFONSO LAUREN Date of Service: 04/26/20 Procedure(s): XR chest routine 2V Accession Number(s): [id number] cc: ILDEFONSO LAUREN Fluoro Time In Minutes: CHEST 2 VIEWS INDICATION: Chest Pain. COMPARISON: 03/29/2020 FINDINGS: Support devices: None. Heart: Within normal limits. Lungs/pleura: Stable pleural-parenchymal disease at the left lung apex. The remainder the lungs are clear. No pneumothorax. Additional findings: None. IMPRESSION: No change since 03/29/2020. Probable chronic scarring in the left upper lobe. Signer Name: Edwin Hutchins Jr, MD Signed: 04/26/2020 1:06 PM Workstation Name: [id number] Transcribed By: TTR Dictated By: EDWIN HUTCHINS JR, MD Electron ically Authenticated By: EDWIN HUTCHINS JR, MD Signed Date/Time: 04/26/20 1306 DD/ 1305 TD/TT: Report Referring Physician: MOLLY MENDOZA Patient Name: JORGE ANG Date of : 1960 Sex: Male Report Date: 2020-03-29 Report Status: Finalized Findings [facility] [address] [place] [address] XRay Report Signed Patient: JORGE ANG MR#: [id number] : 1960 Acct:[id number] Age/Sex: 60 / M ADM Date: 03/29/20 Loc: ED Attending Dr: Ordering Physician: MOLLY MENDOZA MD Date of Service: 03/29/20 Procedure(s): XR chest 1V ap Accession Number(s): [id number] cc: MOLLY MENDOZA MD Fluoro Time In Minutes: CHEST 1 VIEW 03/29/2020 9:47 AM INDICATION / CLINICAL INFORMATION: Chest Pain. COMPARISON: 02/02/2020 FINDINGS: SUPPORT DEVICES: None. HEART / MEDIASTINUM: No significant abnormality. LUNGS / PLEURA: Stable pleural-parenchymal scarring in the left upper lobe. No pneumothorax. ADDITIONAL FINDINGS: No significant additional findings. IMPRESSION: 1. No adverse change from the prior exam. Signer Name: Macho John MD Signed: 03/29/2020 10:49 AM Workstation Name: [id number] Transcribed By: WILLIE Dictated By: Macho John MD Electronically Authenticated By: Macho John MD Signed Date/Time: 03/29/201048 DD/ 48 Critical care attestation.: If time is entered above; I have spent that time in minutes in the direct care of this critically ill patient, excluding procedure time. ED Disposition Clinical Impression: Costochondritis, Alcohol dependence, Dehydration Disposition: DC-01 TO HOME OR SELFCARE Is pt being admited?: No Does the pt Need Aspirin: No Condition: Stable Additional Instructions: Rest, avoid heavy lifting, and avoid strenuous physical activities. Take the medications as needed and/or directed. Minimize consumption of alcohol. Minimize consumption of tobacco and cigarettes. Avoid consumption of heavy and/or spicy foods. When working outside in the extreme heat, make sure to work in shaded areas, take frequent breaks, and drink plenty of water/fluids. Please follow-up with your primary care doctor within the next week. Please return to the emergency room right away with new pain, worsening pain, migration of pain, projectile vomiting, change in mental status, confusion, inability to tolerate liquid feeds, new, worsened or different symptoms not present on the initial emergency room evaluation Prescriptions: Multivitamin with Folic Acid [Cvs One Daily Essential Tablet] 400 mcg PO QDAY #30 tablet Ibuprofen [Motrin] 600 mg PO Q8H PRN #30 tablet PRN Reason: Pain Acetaminophen [Non-Aspirin Extra Strength] 500 mg PO Q6HR PRN #30 tablet PRN Reason: Pain , Severe (7-10) Famotidine [Pepcid] 20 mg PO BID #60 tablet Referrals: TIM TOBIAS MD [Staff Physician] - 3-5 Days [facility] [Provider Group] - 3-5 Days
[2020-04-26 15:06] LABS: INR 1.04 (0.87-1.13)
[2020-04-26 15:07] LABS: Partial Thromboplastin Time 24.5 Sec. (24.2-36.6)
[2020-04-26] MEDS ORDERED: ACETAMINOPHEN 325 MG TAB PO ONE (20:25)
[2020-04-26] MEDS ORDERED: FAMOTIDINE 20 MG TAB PO ONE (20:26)
[2020-04-26 20:44] LABS: BUN/Creatinine Ratio 19; Blood Urea Nitrogen 26 mg/dL (9-20); Calcium 10.4 mg/dL (8.4-10.2); Hemolysis Index 19
[2020-04-26 22:33] VITALS: BP 100/60
== END 2020-04-26 22:40 | disposition home or self-care (01) ==
LOC: ED 12:28
DX: M94.0 Chondrocostal junction syndrome [Tietze] (principal); E86.0 Dehydration; F10.120 Alcohol abuse with intoxication, uncomplicated; I10 Essential (primary) hypertension; E11.9 Type 2 diabetes mellitus without complications; J45.909 Unspecified asthma, uncomplicated; F17.200 Nicotine dependence, unspecified, uncomplicated; K21.9 Gastro-esophageal reflux disease without esophagitis; Z79.899 Other long term (current) drug therapy; Z98.890 Other specified postprocedural states
CPT/HCPCS: 36415; 71046; 80048; 80053; 82550; 83735; 84484; 85025; 85610; 85730; 93005; 96374; 96375; 99284; J1885; J2060; J3360; J7030; 80320; G0480

== ENCOUNTER 2020-09-12 18:38 | Emergency (ER) | payer SELFPAY ==
--- NOTE | 2020-09-12 20:14 | Event Note ---
ED Screening Note Date of service: 09/12/20 Time: 20:12 ED Screening Note: Pain after fall x 2 weeks patient intoxicated This initial assessment/diagnostic orders/clinical plan/treatment(s) is/are subject to change based on patients health status, clinical progression and re- assessment by fellow clinical providers in the ED. Further treatment and workup at subsequent clinical providers discretion. Patient/guardian urged not to elope from the ED as their condition may be serious if not clinically assessed and managed. Initial orders include: xr
--- NOTE | 2020-09-12 20:49 | XRay Report ---
LEFT KNEE 3 VIEWS INDICATION / CLINICAL INFORMATION: Fall with left knee pain. COMPARISON: None available. FINDINGS: BONES / JOINT(S): A lateral metallic plate and screws transfix the proximal tibia. There are mild-to- moderate tricompartmental degenerative changes. There are hypertrophic changes involving the proximal tibiofibular joint. I see no evidence of acute fracture, subluxation or significant joint effusion. SOFT TISSUES: No significant abnormality. ADDITIONAL FINDINGS: None. Signer Name: Ivan Sandovla MD Signed: 09/12/2020 8:44 PM Workstation Name: [id number]
--- NOTE | 2020-09-12 20:50 | XRay Report ---
CERVICAL SPINE 3 VIEWS INDICATION / CLINICAL INFORMATION: Fall with neck pain. COMPARISON: None available. FINDINGS: BONES / JOINT(S): There is moderate generalized cervical spondylosis. There is nonspecific straighten ing of the normal cervical lordosis. I see no evidence of acute fracture or subluxation. SOFT TISSUES: The prevertebral soft tissues are normal. ADDITIONAL FINDINGS: Chronic pleuroparenchymal changes in the left upper lobe have not changed since a chest radiograph on 04/26/20. Signer Name: Ivan Sandoval MD Signed: 09/12/2020 8:46 PM Workstation Name: [id number]
[2020-09-12] MEDS ORDERED: D5W/0.45% NACL 1,000 ML IV SCH (23:45)
[2020-09-12] MEDS ORDERED: LORazepam 2 MG/ML VIAL IV PRN ×3 (23:48)
[2020-09-12] MEDS ORDERED: diazePAM 10 MG/2 ML SYRINGE IV ONE (23:48)
--- NOTE | 2020-09-12 23:49 | Emergency Department Report ---
ED General Adult HPI - General Chief complaint: Fall Stated complaint: ETOH ABUSE PUI?: No Time Seen by Provider: 09/12/20 23:33 Source: patient, EMS ( EMS documentation not available at time of chart dictation ), RN notes reviewed, old records reviewed Mode of arrival: Stretcher Limitations: Other (Intoxication) - History of Present Illness Initial comments: The patient was evaluated in the emergency department for symptoms described in the history of present illness. He/she was evaluated in the context of the global COVID-19 pandemic, which necessitated consideration that the patient might be at risk for infection with the virus that causes COVID-19. Institutional protocols and algorithms that pertain to the evaluation of patients at risk for COVID-19 are in a state of rapid change based on information released by regulatory bodies including the CDC and federal and state organizations. These policies and algorithms were followed during the patient's care in the emergency department. Please note that these policies, procedures and recommendations changed on a rapid basis. This is a 60-year-old gentleman. I am familiar with this patient. He is a frequent utilizer of this emergency room, typically secondary to alcohol intoxication. He presents to the ER today with a complaint of fall, alcohol intoxication, and pain in his left neck, left arm, and left leg. He is not sure if he is having a headache. He is not accompanied by friends or family for additional information or collateral information. He denies extremity weakness. He is not homicidal or suicidal. He also complains of chest tightness," there is something wrong with me." He also states that he fell a few days ago, and injured his right anterior tibia. He believes that he is up-to-date with tetanus vaccinations. -: hour(s), days(s) Location: neck, left, lower extremity Radiation: other (Patient not sure if he is having radiation) Quality: aching Consistency: intermittent Improves with: other (Patient cannot describe exacerbating or relieving factors) - Related Data Home Medications Medication Instructions Recorded Confirmed Last Taken Gabapentin 300 mg PO QDAY 02/02/20 02/03/20 Unknown metFORMIN [Glucophage] 500 mg PO BID 02/02/20 02/03/20 Unknown Previous Rx's Medication Instructions Recorded Last Taken Type Metoclopramide [Reglan TAB] 10 mg PO QID PRN #30 tab 09/09/19 Unknown Rx Multivitamin with Folic Acid [Cvs 400 mcg PO QDAY #30 tablet 09/09/19 Unknown Rx One Daily Essential Tablet] Esomeprazole Magnesium [Nexium 20 mg PO DAILY #30 tab 01/06/20 Unknown Rx 24Hr] AtorvaSTATin [Lipitor] 40 mg PO QHS #30 tablet 01/08/20 Unknown Rx Metoprolol [Lopressor TAB] 50 mg PO BID #60 tablet 01/08/20 Unknown Rx Multivitamin Tab [Multiple Vitamin 1 each PO QDAY tablet 01/08/20 Unknown Rx TAB (Theragran)] Ibuprofen [Motrin] 600 mg PO Q8H PRN #20 tablet 03/29/20 Unknown Rx Ondansetron [Zofran Odt] 4 mg PO Q8HR PRN #15 tab.rapdis 03/29/20 Unknown Rx Acetaminophen [Non-Aspirin Extra 500 mg PO Q6HR PRN #30 tablet 04/26/20 Unknown Rx Strength] Famotidine [Pepcid] 20 mg PO BID #60 tablet 04/26/20 Unknown Rx Ibuprofen [Motrin] 600 mg PO Q8H PRN #30 tablet 04/26/20 Unknown Rx Multivitamin with Folic Acid [Cvs 400 mcg PO QDAY #30 tablet 04/26/20 Unknown Rx One Daily Essential Tablet] Multivitamin with Folic Acid [Cvs 400 mcg PO QDAY #30 tablet 09/13/20 Unknown Rx One Daily Essential Tablet] Allergies Allergy/AdvReac Type Severity Reaction Status Date / Time No Known Allergies Allergy Verified 09/08/19 15:20 ED Review of Systems ROS: Stated complaint: ETOH ABUSE Other details as noted in HPI Comment: Unobtainable due to pts medical conditions (Patient is intoxicated) Constitutional: denies: fever Cardiovascular: chest pain Gastrointestinal: abdominal pain Musculoskeletal: arthralgia, myalgia Psychiatric: denies: homicidal thoughts, suicidal thoughts ED Past Medical Hx - Past Medical History Previous Medical History?: Yes Hx Hypertension: Yes Hx Diabetes: Yes Hx GERD: Yes Additional medical history: ETOH - Surgical History Past Surgical History?: Yes Additional Surgical History: right arm surgery- to repair artery. Left knee hard lofton. - Social History Smoking Status: Current Every Day Smoker Substance Use Type: Alcohol - Medications Home Medications: Home Medications Medication Instructions Recorded Confirmed Last Taken Type Metoclopramide [Reglan TAB] 10 mg PO QID PRN #30 tab 09/09/19 02/03/20 Unknown Rx Multivitamin with Folic Acid [Cvs 400 mcg PO QDAY #30 tablet 09/09/19 02/03/20 Unknown Rx One Daily Essential Tablet] Esomeprazole Magnesium [Nexium 20 mg PO DAILY #30 tab 01/06/20 02/03/20 Unknown Rx 24Hr] AtorvaSTATin [Lipitor] 40 mg PO QHS #30 tablet 01/08/20 02/03/20 Unknown Rx Metoprolol [Lopressor TAB] 50 mg PO BID #60 tablet 01/08/20 02/03/20 Unknown Rx Multivitamin Tab [Multiple Vitamin 1 each PO QDAY tablet 01/08/20 02/03/20 Unknown Rx TAB (Theragran)] Gabapentin 300 mg PO QDAY 02/02/20 02/03/20 Unknown History metFORMIN [Glucophage] 500 mg PO BID 02/02/20 02/03/20 Unknown History Ibuprofen [Motrin] 600 mg PO Q8H PRN #20 tablet 03/29/20 Unknown Rx Ondansetron [Zofran Odt] 4 mg PO Q8HR PRN #15 tab.rapdis 03/29/20 Unknown Rx Acetaminophen [Non-Aspirin Extra 500 mg PO Q6HR PRN #30 tablet 04/26/20 Unknown Rx Strength] Famotidine [Pepcid] 20 mg PO BID #60 tablet 04/26/20 Unknown Rx Ibuprofen [Motrin] 600 mg PO Q8H PRN #30 tablet 04/26/20 Unknown Rx Multivitamin with Folic Acid [Cvs 400 mcg PO QDAY #30 tablet 04/26/20 Unknown Rx One Daily Essential Tablet] Multivitamin with Folic Acid [Cvs 400 mcg PO QDAY #30 tablet 09/13/20 Unknown Rx One Daily Essential Tablet] ED Physical Exam - General General appearance: appears intoxicated - Head Head exam: Present: atraumatic, normocephalic - Eye Eye exam: Present: normal appearance (Chronic appearing cataract noted on the right eye), EOMI. Absent: nystagmus - ENT ENT exam: Present: normal exam, mucous membranes dry, normal external ear exam, other (Tongue fasciculations noted.) - Neck Neck exam: Present: normal inspection, tenderness (There is paracervical tenderness. There is no midline cervical spine tenderness), full ROM - Respiratory Respiratory exam: Present: normal lung sounds bilaterally. Absent: respiratory distress, wheezes, rales, rhonchi, stridor, decreased breath sounds - Cardiovascular Cardiovascular Exam: Present: normal rhythm, tachycardia, normal heart sounds. Absent: systolic murmur, diastolic murmur, rubs, gallop - GI/Abdominal GI/Abdominal exam: Present: soft. Absent: distended, tenderness, guarding, rebound, rigid, pulsatile mass - Rectal Rectal exam: Present: deferred - Extremities Exam Extremities exam: Present: full ROM, other (2+ pulses noted in the bilateral upper and lower extremities. There is no palpable cord. negative Homans sign. Muscular compartments are soft. The pelvis is stable.). Absent: normal inspection (Abrasion noted to right lower extremity.), calf tenderness - Back Exam Back exam: Present: normal inspection. Absent: tenderness, CVA tenderness (R), CVA tenderness (L), paraspinal tenderness, vertebral tenderness - Neurological Exam Neurological exam: Present: altered (Patient alert to name. Patient is intoxicated), normal gait, other (No facial droop. Tongue midline. Extraocular movements intact bilaterally. Facial sensation intact to light touch in V1, V2, V3 distribution bilaterally. 5 and a 5 strength in 4 extremities. Sensation intact to light touch in 4 extremities.) - Psychiatric Psychiatric exam: Present: anxious. Absent: homicidal ideation, suicidal ideation - Skin Skin exam: Present: warm, abrasion. Absent: rash ED Course Vital Signs 09/12/20 09/13/20 19:57 02:14 Temperature 97.7 F 97.6 F Pulse Rate 109 H 89 Respiratory 18 20 Rate Blood Pressure 177/103 Blood Pressure 130/80 [Left] O2 Sat by Pulse 99 100 Oximetry - Reevaluation(s) Reevaluation #1: 09/13/20 03:34 Reassessed. Awake, alert, oriented, clinically sober, and walking with a steady gait. This patient is a chronic and recurrent/frequent alcoholic, and he is clinically sober at this time. ED Medical Decision Making - Lab Data Result diagrams: 09/13/20 00:18 09/13/20 00:18 Vital Signs 09/12/20 19:57 Temperature 97.7 F Pulse Rate 109 H Respiratory 18 Rate Blood Pressure 177/103 O2 Sat by Pulse 99 Oximetry Lab Results 12/25/20 12/25/20 12/25/20 Range/Units 00:18 00:18 00:18 WBC 6.7 (4.5-11.0) K/mm3 RBC 4.94 (3.65-5.03) M/mm3 Hgb 14.0 (11.8-15.2) gm/dl Hct 42.8 (35.5-45.6) % MCV 87 (84-94) fl MCH 28 (28-32) pg MCHC 33 (32-34) % RDW 15.4 H (13.2-15.2) % Plt Count 220 (140-440) K/mm3 Sodium 143 (137-145) mmol/L Potassium 4.2 (3.6-5.0) mmol/L Chloride 106.5 (98-107) mmol/L Carbon Dioxide 19 L (22-30) mmol/L Anion Gap 22 mmol/L BUN 10 (9-20) mg/dL Creatinine 0.7 L (0.8-1.3) mg/dL Estimated GFR > 60 ml/min BUN/Creatinine Ratio 14 % Glucose 146 H (75-100) mg/dL Calcium 9.1 (8.4-10.2) mg/dL Magnesium 2.20 (1.7-2.3) mg/dL Total Creatine Kinase 312 H (55-170) units/L Troponin T < 0.010 (0.00-0.029) ng/mL Salicylates (2.8-20.0) mg/dL Acetaminophen (10.0-30.0) ug/mL Plasma/Serum Alcohol (0-0.07) % 09/13/20 09/13/20 09/13/20 Range/Units 00:18 00:18 00:18 WBC (4.5-11.0) K/mm3 RBC (3.65-5.03) M/mm3 Hgb (11.8-15.2) gm/dl Hct (35.5-45.6) % MCV (84-94) fl MCH (28-32) pg MCHC (32-34) % RDW (13.2-15.2) % Plt Count (140-440) K/mm3 Sodium (137-145) mmol/L Potassium (3.6-5.0) mmol/L Chloride (98-107) mmol/L Carbon Dioxide (22-30) mmol/L Anion Gap mmol/L BUN (9-20) mg/dL Creatinine (0.8-1.3) mg/dL Estimated GFR ml/min BUN/Creatinine Ratio % Glucose (75-100) mg/dL Calcium (8.4-10.2) mg/dL Magnesium (1.7-2.3) mg/dL Total Creatine Kinase (55-170) units/L Troponin T (0.00-0.029) ng/mL Salicylates < 0.3 L (2.8-20.0) mg/dL Acetaminophen 5.0 L (10.0-30.0) ug/mL Plasma/Serum Alcohol 0.29 H (0-0.07) % - EKG Data -: EKG Interpreted by Dc EKG shows normal: sinus rhythm Rate: normal - EKG Data 09/13/20 01:50 Sinus rhythm, 86 bpm, normal axis, left ventricular hypertrophy, poor R wave progression, and motion artifact. Abnormal EKG. Not a STEMI. 09/13/20 01:51 Unchanged from prior EKG from April 2020 - Radiology Data Radiology results: report reviewed, image reviewed CT cervical spine spine without contrast INDICATION: Fall today with genera lized neck pain. TECHNIQUE: Axial imaging performed through the cervical spine without the use of contrast. Sagittal and coronal reconstructed images were also reviewed. All CT scans at this location are performed using CT dose reduction for ALARA by means of automated exposure control. COMPARISON: None FINDINGS: Alignment: Spinal alignment is normal. Bones: There is no acute osseous abnormality. 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 Soft tissues: No acute or significant incidental soft tissue abnormality. IMPRESSION: No acute abnormality. Signer Name: Ian Conway MD Signed: 09/12/2020 11:42 PM Workstation Name: [id number] CT head without contrast HISTORY: fotnana etoh dependence, closed head injury. T ECHNIQUE: Axial imaging performed from the skull apex through the skull base without the use of contrast. All CT scans at this location are performed using CT dose reduction for ALARA by means of automated exposure control. COMPARISON: CT head from 05/17/2019 FINDINGS: Parenchyma: No acute intracranial hemorrhage or parenchymal abnormality. Periventricular hypodensities are likely in keeping with microangiopathy. Ventricles: There is mild diffuse brain atrophy with commensurate ventricular enlargement which is likely age appropriate. Soft tissues: Soft tissues including the orbits appear normal. Bones: No acute osseous abnormality. Sinuses: Sinuses and mastoid air cells are clear. IMPRES ALBERTO: No acute abnormality. Signer Name: Ian Conway MD Signed: 09/12/2020 11:40 PM Workstation Name: [id number] CHEST 1 VIEW INDICATION: chest pain tachycardias. COMPARISON: 05/06/2020 FIND INGS: SUPPORT DEVICES: None. HEART: Within normal limits. LUNGS/PLEURA: Chronic left apical scarring/pleural thickening and streaky airspace opacity. Otherwise clear lungs. ADDITIONAL FINDINGS: None. IMPRESSION: 1. No acute findings. Signer Name: Ian Conway MD Signed: 09/12/2020 11:38 PM Workstation Name: [id number] Print Report Referring Physician: ANT HERNANDEZ Patient Name: JORGE ANG Date of : 1960 Sex: Male Report Date: 2020-09-12 Report Status: Finalized Findings [facility] [address] [place] [address] XRay Report Signed Patient: JORGE ANG MR#: [id number] : 1960 Acct:[id number] Age/Sex: 60 / M ADM Date: 09/12/20 Loc: ED Attending Dr: Ordering Physician: ANT HERNANDEZ Date of Service: 09/12/20 Procedure(s): XR knee 3V LT Accession Number(s): [id number] cc: ANT HERNANDEZ Fluoro Time In Minutes: LEFT KNEE 3 VIEWS INDICATION / CLINICAL INFORMATION: Fall with left knee pain. COMPARISON: None available. FINDINGS: BONES / JOINT(S): A lateral metallic plate and screws transfix the proximal tibia. There are [id number] tricompartmental degenerative changes. There are hypertrophic changes involving the proximal tibiofibular joint. I see no evidence of acute fracture, subluxation or significant joint effusion. SOFT TISSUES: No significant abnormality. ADDITIONAL FINDINGS: None. Signer Name: Ivan Sandoval MD Signed: 09/12/2020 8:44 PM Workstation Name: [id number] Transcribed By: RT Dictated By: Ivan Sandoval MD Electronically Authenticated By: Ivan Sandoval MD Signed Date/Time: 09/12/202043 DD/ 42 TD/TT: - Medical Decision Making Differential diagnosis, including but not limited to: Radiculopathy, alcohol intoxication, closed head injury, cervical spine injury, electrolyte derangement, costochondritis, aspiration, pneumonitis Assessment and plan: 60-year-old gentleman, who is clinically intoxicated, but walks with a steady gait. He states that he fell. Given that he is intoxicated with history of trauma, CT scan of the brain and cervical spine are obtained, as per typical ATLS recommendations, no acute traumatic injuries noted. EKG unchanged from prior, laboratory studies fairly unremarkable, with the exception of elevated blood alcohol level, as expected. I find the patient to be low risk for major adverse cardiac event as per heart score. His tachycardia has resolved, heart rate currently in the 80s, and he is not tachypneic or hypoxic. An x-ray of the chest was unremarkable. X-ray of the cervical spine was obtained prior to my personal evaluation of this patient, as was an x-ray of his lower extremity, which was also unremarkable. It appears that the patient's main issue here is alcohol intoxication. He does not have a sober adult who can come by and pick him up. Patient will therefore be observed in this emergency room pending clinical sobriety, discharge when clinically sober Critical care attestation.: If time is entered above; I have spent that time in minutes in the direct care of this critically ill patient, excluding procedure time. ED Disposition Clinical Impression: History of fall, Neck pain, History of chest pain, Abrasion, right lower leg, initial encounter Closed head injury Qualifiers: Encounter type: initial encounter Qualified Code(s): S09.90XA - Unspecified injury of head, initial encounter Alcohol intoxication Qualifiers: Complication of substance-induced condition: uncomplicated Qualified Code(s): F10.920 - Alcohol use, unspecified with intoxication, uncomplicated Left knee pain Qualifiers: Chronicity: unspecified Qualified Code(s): M25.562 - Pain in left knee Disposition: DC-01 TO HOME OR SELFCARE Is pt being admited?: No Does the pt Need Aspirin: No Condition: Good Additional Instructions: We recommend that the patient stop drinking alcohol. Take a multivitamin as d irected. Continue current outpatient medications. Do not drive or operate motor vehicles for the next 6 months, until cleared to do so by a primary care doctor. Follow-up with a primary care doctor within the next week. Patient may take [id number]-syv-iieyyev Tylenol and ibuprofen as needed for pain. Patient may wash abrasions with gentle soap and water. Rest, avoid heavy lifting, and avoid strenuous physical activity. Please return to the emergency room right away with new pain, worsened pain, migration of pain, projectile vomiting, change in mental status, confusion, inability to tolerate liquid feeds, new, worsened or different symptoms not present on the initial emergency room evaluation. Prescriptions: Multivitamin with Folic Acid [Cvs One Daily Essential Tablet] 400 mcg PO QDAY #30 tablet Referrals: [facility] [Provider Group] - 3-5 Days
[2020-09-13 00:38] LABS: Hematocrit 42.8 % (35.5-45.6); Mean Corpuscular HGB Conc 33 % (32-34); Mean Corpuscular Volume 87 fl (84-94); Platelet Count 220 K/mm3 (140-440); Red Blood Count 4.94 M/mm3 (3.65-5.03); Red Cell Distribution Width 15.4 % (13.2-15.2)
--- NOTE | 2020-09-13 00:42 | XRay Report ---
CHEST 1 VIEW INDICATION: chest pain tachycardias. COMPARISON: 05/06/2020 FINDINGS: SUPPORT DEVICES: None. HEART: Within normal limits. LUNGS/PLEURA: Chronic left apical scarring/pleural thickening and streaky airspace opacity. Otherwise clear lungs. ADDITIONAL FINDINGS: None. IMPRESSION: 1. No acute findings. Signer Name: Ian Conway MD Signed: 09/13/2020 12:38 AM Workstation Name: [id number]
--- NOTE | 2020-09-13 00:44 | Cat Scan Report ---
CT head without contrast HISTORY: fontana etoh dependence, closed head injury. TECHNIQUE: Axial imaging performed from the skull apex through the skull base without the use of con trast. All CT scans at this location are performed using CT dose reduction for ALARA by means of aut omated exposure control. COMPARISON: CT head from 05/17/2019 FINDINGS: Parenchyma: No acute intracranial hemorrhage or parenchymal abnormality. Periventricular hypodensiti es are likely in keeping with microangiopathy. Ventricles: There is mild diffuse brain atrophy with commensurate ventricular enlargement which is l ikely age appropriate. Soft tissues: Soft tissues including the orbits appear normal. Bones: No acute osseous abnormality. Sinuses: Sinuses and mastoid air cells are clear. IMPRESSION: No acute abnormality. Signer Name: Ian Conway MD Signed: 09/13/2020 12:40 AM Workstation Name: [id number]
--- NOTE | 2020-09-13 00:46 | Cat Scan Report ---
CT cervical spine spine without contrast INDICATION: Fall today with generalized neck pain. TECHNIQUE: Axial imaging performed through the cervical spine without the use of contrast. Sagittal and coronal reconstructed images were also reviewed. All CT scans at this location are performed us ing CT dose reduction for ALARA by means of automated exposure control. COMPARISON: None FINDINGS: Alignment: Spinal alignment is normal. Bones: There is no acute osseous abnormality. Mild to moderate multilevel discogenic DJD and mild m ultilevel facet arthropathy, with large anterior osteophytes. Soft tissues: No acute or significant incidental soft tissue abnormality. IMPRESSION: No acute abnormality. Signer Name: Ian Conway MD Signed: 09/13/2020 12:42 AM Workstation Name: [id number]
[2020-09-13 01:15] LABS: Blood Urea Nitrogen 10 mg/dL (9-20); Calcium 9.1 mg/dL (8.4-10.2); Hemolysis Index 12
[2020-09-13 01:21] LABS: BUN/Creatinine Ratio 14
[2020-09-13 02:15] VITALS: BP 130/80
== END 2020-09-13 03:40 | disposition home or self-care (01) ==
LOC: ED 18:38
DX: S80.812A Abrasion, left lower leg, initial encounter (principal); S09.90XA Unspecified injury of head, initial encounter; F10.129 Alcohol abuse with intoxication, unspecified; M54.2 Cervicalgia; R07.89 Other chest pain; I10 Essential (primary) hypertension; E11.9 Type 2 diabetes mellitus without complications; K21.9 Gastro-esophageal reflux disease without esophagitis; F17.200 Nicotine dependence, unspecified, uncomplicated; Z98.890 Other specified postprocedural states; Z79.899 Other long term (current) drug therapy; W18.30XA Fall on same level, unspecified, initial encounter; Y93.89 Activity, other specified; Y92.89 Other specified places as the place of occurrence of the external cause; Y99.8 Other external cause status
CPT/HCPCS: 36415; 70450; 71045; 72040; 72125; 73562; 80048; 82550; 83735; 84484; 85027; 93005; 96374; 99285; J3360; 80320; G0480

== ENCOUNTER 2021-07-12 20:19 | Inpatient (IN) | payer SELFPAY ==
[2021-07-12] MEDS ORDERED: LORazepam 2 MG/ML VIAL IV PRN ×2 (20:35)
[2021-07-12] MEDS ORDERED: PANTOPRAZOLE 40 MG INJ IV ONE (20:35)
[2021-07-12] MEDS ORDERED: chlorproMAZINE 50 MG/2 ML INJ IM ONE (20:36)
--- NOTE | 2021-07-12 21:05 | XRay Report ---
CHEST 1 VIEW, 07/12/2021 8:29 PM CLINICAL INFORMATION/INDICATION: Chest pain COMPARISON: Chest radiograph, 09/13/2020 FINDINGS: SUPPORT DEVICES: None. HEART: The cardiac silhouette is normal in size. LUNGS/PLEURA: Stable pleural-parenchymal scarring is noted in the left hemithorax. Chronic interstiti al changes are again noted with no evidence of superimposed airspace disease or pleural effusion. ADDITIONAL FINDINGS: No additional acute findings. IMPRESSION: 1. No evidence of acute cardiopulmonary process. Signer Name: Shira Dowling MD Signed: 07/12/2021 9:01 PM Workstation Name: [id number]
[2021-07-12 21:18] LABS: Basophils % (Auto) 0.3 % (0.0-1.8); Eosinophils % (Auto) 0.2 % (0.0-4.3); Hematocrit 43.6 % (35.5-45.6); Hemoglobin 14.2 gm/dl (11.8-15.2); Lymphocytes # (Auto) 1.7 K/mm3 (1.2-5.4); Lymphocytes % (Auto) 13.7 % (13.4-35.0); Mean Corpuscular HGB Conc 33 % (32-34); Mean Corpuscular Volume 86 fl (84-94); Monocytes # (Auto) 1.2 K/mm3 (0.0-0.8); Monocytes % (Auto) 9.7 % (0.0-7.3); Platelet Count 236 K/mm3 (140-440); Red Blood Count 5.09 M/mm3 (3.65-5.03); Red Cell Distribution Width 14.8 % (13.2-15.2)
[2021-07-12 21:46] LABS: Alanine Aminotransferase 24 units/L (7-56); Albumin 4.3 g/dL (3.9-5); BUN/Creatinine Ratio 12; Bilirubin,Direct 0.4 mg/dL (0-0.2); Blood Urea Nitrogen 11 mg/dL (9-20); Calcium 8.9 mg/dL (8.4-10.2); Hemolysis Index 16
--- NOTE | 2021-07-12 23:21 | Emergency Department Report ---
ED Chest Pain HPI - General Chief Complaint: Abdominal Pain Stated Complaint: ETOH WITHDRAWAL PUI?: No Time Seen by Provider: 07/12/21 20:34 Source: EMS Mode of arrival: Stretcher Limitations: No Limitations - History of Present Illness Initial Comments: Chief complaint chest pain abdominal pain vomiting blood hiccups HPI: This is a 61-year-old male with history of diabetes mellitus, GERD, hypertension alcohol dependence who presents with nausea vomiting since yesterday. He felt generally unwell. Family member called 911. Last drink of alcohol yesterday. He drinks several beers per day. EMS called for medical direction prior to arrival. Concern for alcohol withdrawals with tachycardia and tremor. Patient has sharp chest pain rating to the epigastric region. He also has hiccups. Denies bloody stools. He did not drink beer today due to nausea vomiting. MD Complaint: chest pain, other (Hiccups abdominal pain coffee-ground emesis) -: Gradual, This morning Onset: during rest Pain Location: substernal Pain Radiation: none Severity: moderate Severity scale (0 -10): 6 Quality: aching, sharp Consistency: constant Improves With: nothing Worsens With: nothing re: nausea, vomting - Related Data Home Medications Medication Instructions Recorded Confirmed Last Taken Gabapentin 300 mg PO QDAY 02/02/20 02/03/20 Unknown metFORMIN [Glucophage] 500 mg PO BID 02/02/20 02/03/20 Unknown Previous Rx's Medication Instructions Recorded Last Taken Type Metoclopramide [Reglan TAB] 10 mg PO QID PRN #30 tab 09/09/19 Unknown Rx Multivitamin with Folic Acid [Cvs 400 mcg PO QDAY #30 tablet 09/09/19 Unknown Rx One Daily Essential Tablet] Esomeprazole Magnesium [Nexium 20 mg PO DAILY #30 tab 01/06/20 Unknown Rx 24Hr] AtorvaSTATin [Lipitor] 40 mg PO QHS #30 tablet 01/08/20 Unknown Rx Metoprolol [Lopressor TAB] 50 mg PO BID #60 tablet 01/08/20 Unknown Rx Multivitamin Tab [Multiple Vitamin 1 each PO QDAY tablet 01/08/20 Unknown Rx TAB (Theragran)] Ibuprofen [Motrin] 600 mg PO Q8H PRN #20 tablet 03/29/20 Unknown Rx Ondansetron [Zofran Odt] 4 mg PO Q8HR PRN #15 tab.rapdis 03/29/20 Unknown Rx Acetaminophen [Non-Aspirin Extra 500 mg PO Q6HR PRN #30 tablet 04/26/20 Unknown Rx Strength] Famotidine [Pepcid] 20 mg PO BID #60 tablet 04/26/20 Unknown Rx Ibuprofen [Motrin] 600 mg PO Q8H PRN #30 tablet 04/26/20 Unknown Rx Multivitamin with Folic Acid [Cvs 400 mcg PO QDAY #30 tablet 04/26/20 Unknown Rx One Daily Essential Tablet] Multivitamin with Folic Acid [Cvs 400 mcg PO QDAY #30 tablet 09/13/20 Unknown Rx One Daily Essential Tablet] Allergies Allergy/AdvReac Type Severity Reaction Status Date / Time No Known Allergies Allergy Verified 09/08/19 15:20 Heart Score - HEART Score History: Slightly suspicious EKG: Non-specific Age: 45-65 Risk factors: 1-2 risk factors Troponin: < normal limit HEART Score: 3 - EKG Read Time Time EKG Completed: 20:58 EKG Read Time: 21:15 - Critical Actions Critical Actions: 0-3 pts:0.9-1.7%risk of adverse cardiac event.Candidate for discharge ED Review of Systems ROS: Stated complaint: ETOH WITHDRAWAL Other details as noted in HPI Comment: All other systems reviewed and negative Constitutional: malaise. denies: fever Respiratory: denies: cough, shortness of breath Cardiovascular: chest pain Gastrointestinal: abdominal pain, nausea, hematemesis ED Past Medical Hx - Past Medical History Previous Medical History?: Yes Hx Hypertension: Yes Hx Diabetes: Yes Hx GERD: Yes Additional medical history: ETOH - Surgical History Past Surgical History?: Yes Additional Surgical History: right arm surgery- to repair artery. Left knee hard lofton. - Social History Smoking Status: Never Smoker Substance Use Type: Alcohol - Medications Home Medications: Home Medications Medication Instructions Recorded Confirmed Last Taken Type Metoclopramide [Reglan TAB] 10 mg PO QID PRN #30 tab 09/09/19 02/03/20 Unknown Rx Multivitamin with Folic Acid [Cvs 400 mcg PO QDAY #30 tablet 09/09/19 02/03/20 Unknown Rx One Daily Essential Tablet] Esomeprazole Magnesium [Nexium 20 mg PO DAILY #30 tab 01/06/20 02/03/20 Unknown Rx 24Hr] AtorvaSTATin [Lipitor] 40 mg PO QHS #30 tablet 01/08/20 02/03/20 Unknown Rx Metoprolol [Lopressor TAB] 50 mg PO BID #60 tablet 01/08/20 02/03/20 Unknown Rx Multivitamin Tab [Multiple Vitamin 1 each PO QDAY tablet 01/08/20 02/03/20 Unknown Rx TAB (Theragran)] Gabapentin 300 mg PO QDAY 02/02/20 02/03/20 Unknown History metFORMIN [Glucophage] 500 mg PO BID 02/02/20 02/03/20 Unknown History Ibuprofen [Motrin] 600 mg PO Q8H PRN #20 tablet 03/29/20 Unknown Rx Ondansetron [Zofran Odt] 4 mg PO Q8HR PRN #15 tab.rapdis 03/29/20 Unknown Rx Acetaminophen [Non-Aspirin Extra 500 mg PO Q6HR PRN #30 tablet 04/26/20 Unknown Rx Strength] Famotidine [Pepcid] 20 mg PO BID #60 tablet 04/26/20 Unknown Rx Ibuprofen [Motrin] 600 mg PO Q8H PRN #30 tablet 04/26/20 Unknown Rx Multivitamin with Folic Acid [Cvs 400 mcg PO QDAY #30 tablet 04/26/20 Unknown Rx One Daily Essential Tablet] Multivitamin with Folic Acid [Cvs 400 mcg PO QDAY #30 tablet 09/13/20 Unknown Rx One Daily Essential Tablet] ED Physical Exam - General Limitations: No Limitations General appearance: alert, in no apparent distress, anxious, other (Tremulous constant hiccups) - Head Head exam: Present: atraumatic, normocephalic - Eye Eye exam: Present: normal appearance - ENT ENT exam: Present: mucous membranes moist - Neck Neck exam: Present: normal inspection, full ROM - Respiratory Respiratory exam: Present: normal lung sounds bilaterally. Absent: respiratory distress, wheezes, rales, rhonchi - Cardiovascular Cardiovascular Exam: Present: normal rhythm, tachycardia, normal heart sounds. Absent: systolic murmur, diastolic murmur, rubs, gallop - GI/Abdominal GI/Abdominal exam: Present: soft, normal bowel sounds. Absent: distended, tenderness, guarding, rebound - Rectal Rectal exam: Present: deferred - Extremities Exam Extremities exam: Present: normal inspection - Neurological Exam Neurological exam: Present: alert, oriented X3 - Psychiatric Psychiatric exam: Present: normal affect, anxious - Skin Skin exam: Present: warm, dry, intact, normal color. Absent: rash ED Course Vital Signs 07/12/21 07/12/21 07/12/21 20:45 20:46 21:10 Temperature 98.0 F 98.0 F Pulse Rate 114 H 114 H 114 H Respiratory 22 20 18 Rate Blood Pressure Blood Pressure 172/144 172/144 [Left] O2 Sat by Pulse 98 99 96 Oximetry 07/12/21 07/12/21 07/12/21 21:15 21:31 21:45 Temperature Pulse Rate 114 H 116 H 116 H Respiratory 17 18 18 Rate Blood Pressure 172/144 161/92 105/74 Blood Pressure [Left] O2 Sat by Pulse 96 99 97 Oximetry 07/12/21 07/12/21 07/12/21 22:01 22:15 23:01 Temperature Pulse Rate 134 H 115 H 109 H Respiratory 33 H 20 19 Rate Blood Pressure 111/71 119/75 100/66 Blood Pressure [Left] O2 Sat by Pulse 100 99 100 Oximetry 07/12/21 07/12/21 23:15 23:31 Temperature Pulse Rate 106 H 107 H Respiratory 18 19 Rate Blood Pressure 101/66 108/66 Blood Pressure [Left] O2 Sat by Pulse 99 100 Oximetry ROWDY score - Rowdy Score Age > 65: (1) Yes Aspirin use within the Past 7 Days: (1) Yes 3 or more CAD Risk Factors: (0) No 2 or more Angina events in past 24 hrs: (0) No Known CAD with more than 50% Stenosis: (0) No Elevated Cardiac Markers: (0) No ST Deviation Greater than 0.5mm: (0) No ROWDY Score: 2 ED Medical Decision Making - Lab Data Result diagrams: 07/12/21 20:45 07/12/21 20:45 - EKG Data -: EKG Interpreted by La EKG shows normal: sinus rhythm Rate: tachycardia - EKG Data Interpretation: nonspecific ST-T wave amy 07/12/21 23:21 EKG obtained 2057 EKG interpreted by me Rate 110 bpm sinus tachycardia rightward axis normal intervals no ST elevation - Radiology Data Radiology results: report reviewed Patient Name: JORGE ANG Gender: Male Date of : 1960 Referring Provider: SHIRLEY DOLAN Organization: [facility] Accession Number: [id number] Requested Date: July 12, 2021 20:34 Report Status: Final Requested Procedure: 1 Procedure Description: XR chest 1V ap Modality: XR Findings Reporting MD: Shira Dowling Dictation Time: July 12, 2021 20:01 Sr. 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 HEART: The cardiac silhouette is normal in size. LUNGS/PLEURA: Stable pleural-parenchymal scarring is noted in the left hemithorax. Chronic interstitial changes are again noted with no evidence of superimposed airspace disease or pleural effusion. ADDITIONAL FINDINGS: No additional acute findings. IMPRESSION: 1. No evidence of acute cardiopulmonary process. Signer Name: Shira Dowling MD Signed: 07/12/2021 8:01 PM Workstation Name: [id number] - Medical Decision Making 1. Alcohol withdrawal [facility] protocol 2. Chest pain radiated epigastric region suspect esophagitis alcohol gastritis with hematemesis do not suspect cardiac disease patient has had normal cardiac catheterization here at this hospital according to previous cardiology consultation and electronic medical record. In December 2019 left heart cardiac catheterization revealed normal size left ventricle with normal contractility and normal coronary anatomy patient given IV Protonix 3 hiccups due to esophagitis gastritis. No evidence of myocardial infarction or pneumonia . Patient given IM Thorazine 4. Hyponatremia due to beer potomania will defer treatment to hospitalist Chest radiograph unremarkable, chemistry reveals beer portal marii with hyponatremia CBC revealed normal hemoglobin hematocrit with nonspecific leukocytosis. No evidence of infection. Troponin negative. Patient is admitted to the hospital service. Critical care attestation.: If time is entered above; I have spent that time in minutes in the direct care of this critically ill patient, excluding procedure time. ED Disposition Clinical Impression: Alcohol withdrawal, Esophagitis, Gastritis, Hyponatremia Disposition: ADMITTED INPATIENT Is pt being admited?: Yes Does the pt Need Aspirin: No Condition: Stable
[2021-07-13] MEDS ORDERED: ONDANSETRON 4 MG/2 ML INJ IV PRN (01:16)
[2021-07-13] MEDS ORDERED: ALBUTEROL 2.5 MG/3 ML NEBU IH PRN (01:16)
[2021-07-13] MEDS ORDERED: ACETAMINOPHEN 325 MG TAB PO PRN (01:16)
[2021-07-13] MEDS ORDERED: oxyCODONE /ACETAMINOPHEN 5-325MG TAB PO PRN (01:16)
[2021-07-13] MEDS ORDERED: HYDROmorphone 1 MG/1 ML INJ IV PRN (01:16)
[2021-07-13] MEDS ORDERED: METOCLOPRAMIDE 10 MG TAB PO PRN (01:20)
[2021-07-13] MEDS ORDERED: DEXTROSE 50% IN WATER (25GM) 50 ML SYRINGE IV PRN (01:24)
--- NOTE | 2021-07-13 01:29 | History and Physical Report ---
History of Present Illness Date of examination: 07/13/21 Date of admission: 07/13/21 Chief complaint: Abdominal pain, hematemesis, chest pain, hic cups History of present illness: 61-year-old male with history of diabetes mellitus, GERD, hypertension alcohol dependence was brought to the emergency room because of nausea vomiting blood and abdominal pain since yesterday. Patient is not feeling well. Family member called 911. Last drink of alcohol yesterday. He drinks several beers per day. EMS called for medical direction prior to arrival. Concern for alc ohol withdrawals with tachycardia and tremor. Patient has sharp chest pain radiating to the epigastric region. He also has hiccups. Denies bloody stools. He did not drink beer today due to nausea vomiting. In the emergency room patient is found to have alcohol withdrawal, vomiting blood and abdominal pain so we are going to admit the patient we will put the patient on Protonix and consult GI Med rec is done Past History Past Medical History: diabetes, GERD, hypertension, other (Alcohol withdrawal) Medications and Allergies Allergies Allergy/AdvReac Type Severity Reaction Status Date / Time No Known Allergies Allergy Verified 09/08/19 15:20 Home Medications Medication Instructions Recorded Confirmed Last Taken Type Metoclopramide [Reglan TAB] 10 mg PO QID PRN #30 tab 09/09/19 02/03/20 Unknown Rx Multivitamin with Folic Acid [Cvs 400 mcg PO QDAY #30 tablet 09/09/19 02/03/20 Unknown Rx One Daily Essential Tablet] Esomeprazole Magnesium [Nexium 20 mg PO DAILY #30 tab 01/06/20 02/03/20 Unknown Rx 24Hr] AtorvaSTATin [Lipitor] 40 mg PO QHS #30 tablet 01/08/20 02/03/20 Unknown Rx Metoprolol [Lopressor TAB] 50 mg PO BID #60 tablet 01/08/20 02/03/20 Unknown Rx Multivitamin Tab [Multiple Vitamin 1 each PO QDAY tablet 01/08/20 02/03/20 Unknown Rx TAB (Theragran)] Gabapentin 300 mg PO QDAY 02/02/20 02/03/20 Unknown History metFORMIN [Glucophage] 500 mg PO BID 02/02/20 02/03/20 Unknown History Ibuprofen [Motrin] 600 mg PO Q8H PRN #20 tablet 03/29/20 Unknown Rx Ondansetron [Zofran Odt] 4 mg PO Q8HR PRN #15 tab.rapdis 03/29/20 Unknown Rx Acetaminophen [Non-Aspirin Extra 500 mg PO Q6HR PRN #30 tablet 04/26/20 Unknown Rx Strength] Famotidine [Pepcid] 20 mg PO BID #60 tablet 04/26/20 Unknown Rx Ibuprofen [Motrin] 600 mg PO Q8H PRN #30 tablet 04/26/20 Unknown Rx Multivitamin with Folic Acid [Cvs 400 mcg PO QDAY #30 tablet 04/26/20 Unknown Rx One Daily Essential Tablet] Multivitamin with Folic Acid [Cvs 400 mcg PO QDAY #30 tablet 09/13/20 Unknown Rx One Daily Essential Tablet] Active Meds: Active Medications Acetaminophen (Acetaminophen 325 Mg Tab) 650 mg PO Q4H PRN PRN Reason: Pain MILD(1-3)/Fever >100.5/SETHI Albuterol (Albuterol 2.5 Mg/3 Ml Nebu) 2.5 mg IH Q4HRT PRN PRN Reason: Shortness Of Breath Albuterol/Ipratropium (Ipratropium/Albuterol Sulfate 3 Ml Ampul.Neb) 1 ampul IH Q6HRT SIMON Atorvastatin Calcium (Atorvastatin 40 Mg Tab) 40 mg PO QHS SIMON Dextrose (Dextrose 50% In Water (25gm) 50 Ml Syringe) 50 ml IV Q30MIN PRN; Protocol PRN Reason: Hypoglycemia Hydromorphone HCl (Hydromorphone 1 Mg/1 Ml Inj) 0.5 mg IV Q3H PRN PRN Reason: Pain , Severe (7-10) Sodium Chloride (Nacl 0.9% 1000 Ml) 1,000 mls @ 100 mls/hr IV DIRECT SIMON Insulin Human Lispro (Insulin Lispro 100 Unit/Ml) 0 unit SUB-Q Q6HR SIMON; Protocol Lorazepam (Lorazepam 2 Mg/Ml Vial) 4 mg IV Q1H PRN PRN Reason: BRIA-Ignacio 16-25 Lorazepam (Lorazepam 2 Mg/Ml Vial) 2 mg IV Q1H PRN PRN Reason: BRIA-Ignacio 8-15 Last Admin: 07/12/21 21:03 Dose: 2 mg Documented by: Metoclopramide HCl (Metoclopramide 10 Mg Tab) 10 mg PO QID PRN PRN Reason: Nausea Metoprolol Tartrate (Metoprolol Tartrate 50 Mg Tab) 50 mg PO BID [facility] Multivitamins (Multivitamins ,Therapeutic Tab) 1 each PO QDAY [facility] Multivitamins (Multivitamins ,Therapeutic Tab) each PO QDAY [facility] Ondansetron HCl (Ondansetron 4 Mg/2 Ml Inj) 4 mg IV Q8H PRN PRN Reason: Nausea And Vomiting Oxycodone/Acetaminophen (Oxycodone /Acetaminophen 5-325mg Tab) 1 tab PO Q6H PRN PRN Reason: Pain, Moderate (4-6) Pantoprazole Sodium (Pantoprazole 40 Mg Inj) 40 mg IV BID SIMON Sodium Chloride (Sodium Chloride 0.9% 10 Ml Flush Syringe) 10 ml IV BID SIMON Sodium Chloride (Sodium Chloride 0.9% 10 Ml Flush Syringe) 10 ml IV PRN PRN PRN Reason: LINE FLUSH Review of Systems All systems: negative Cardiovascular: chest pain Gastrointestinal: abdominal pain, nausea, vomiting, hematemesis Exam - Constitutional Vitals: Temp Pulse Resp BP Pulse Ox 98.0 F 107 H 19 108/66 100 07/12/21 21:10 07/12/21 23:31 07/12/21 23:31 07/12/21 23:31 07/12/21 23:31 General appearance: Present: no acute distress, well-nourished - EENT Eyes: Present: PERRL ENT: hearing intact, clear oral mucosa - Neck Neck: Present: supple, normal ROM - Respiratory Respiratory effort: normal Respiratory: bilateral: diminished - Cardiovascular Heart Sounds: Present: S1 & S2. Absent: rub, click - Extremities Extremities: pulses symmetrical, No edema Peripheral Pulses: within normal limits - Abdominal General gastrointestinal: Present: soft, tender, non-distended, normal bowel sounds Male genitourinary: Present: normal - Integumentary Integumentary: Present: clear, warm, dry - Musculoskeletal Musculoskeletal: gait normal, strength equal bilaterally - Psychiatric Psychiatric: appropriate mood/affect, intact judgment & insight - Neurologic Neurologic: CNII-XII intact, moves all extremities HEART Score - HEART Score EKG: Non-specific Age: 45-65 Risk factors: 1-2 risk factors Troponin: Troponin T < 0.010 ng/mL (0.00-0.029) 07/12/21 20:45 Troponin: < normal limit - Critical Actions Critical Actions: 0-3 pts:0.9-1.7%risk of adverse cardiac event.Candidate for discharge Results - Labs CBC & Chem 7: 07/12/21 20:45 07/12/21 20:45 Labs: Laboratory Last Values WBC 12.6 K/mm3 (4.5-11.0) H 07/12/21 20:45 RBC 5.09 M/mm3 (3.65-5.03) H 07/12/21 20:45 Hgb 14.2 gm/dl (11.8-15.2) 07/12/21 20:45 Hct 43.6 % (35.5-45.6) 07/12/21 20:45 MCV 86 fl (84-94) 07/12/21 20:45 MCH 28 pg (28-32) 07/12/21 20:45 MCHC 33 % (32-34) 07/12/21 20:45 RDW 14.8 % (13.2-15.2) 07/12/21 20:45 Plt Count 236 K/mm3 (140-440) 07/12/21 20:45 Lymph % (Auto) 13.7 % (13.4-35.0) 07/12/21 20:45 Fergus % (Auto) 9.7 % (0.0-7.3) H 07/12/21 20:45 Eos % (Auto) 0.2 % (0.0-4.3) 07/12/21 20:45 Baso % (Auto) 0.3 % (0.0-1.8) 07/12/21 20:45 Lymph # (Auto) 1.7 K/mm3 (1.2-5.4) 07/12/21 20:45 Fergus # (Auto) 1.2 K/mm3 (0.0-0.8) H 07/12/21 20:45 Eos # (Auto) 0.0 K/mm3 (0.0-0.4) 07/12/21 20:45 Baso # (Auto) 0.0 K/mm3 (0.0-0.1) 07/12/21 20:45 Seg Neutrophils % 76.1 % (40.0-70.0) H 07/12/21 20:45 Seg Neutrophils # 9.6 K/mm3 (1.8-7.7) H 07/12/21 20:45 Sodium 127 mmol/L (137-145) L 07/12/21 20:45 Potassium 3.7 mmol/L (3.6-5.0) 07/12/21 20:45 Chloride 88.3 mmol/L (98-107) L 07/12/21 20:45 Carbon Dioxide 21 mmol/L (22-30) L 07/12/21 20:45 Anion Gap 21 mmol/L 07/12/21 20:45 BUN 11 mg/dL (9-20) 07/12/21 20:45 Creatinine 0.9 mg/dL (0.8-1.3) 07/12/21 20:45 Estimated GFR > 60 ml/min 07/12/21 20:45 BUN/Creatinine Ratio 12 % 07/12/21 20:45 Glucose 138 mg/dL (75-100) H 07/12/21 20:45 Calcium 8.9 mg/dL (8.4-10.2) 07/12/21 20:45 Total Bilirubin 1.30 mg/dL (0.1-1.2) H 07/12/21 20:45 Direct Bilirubin 0.4 mg/dL (0-0.2) H 07/12/21 20:45 Indirect Bilirubin 0.9 mg/dL 07/12/21 20:45 AST 26 units/L (5-40) 07/12/21 20:45 ALT 24 units/L (7-56) 07/12/21 20:45 Alkaline Phosphatase 96 units/L (35-129) 07/12/21 20:45 Troponin T < 0.010 ng/mL (0.00-0.029) 07/12/21 20:45 Total Protein 7.5 g/dL (6.3-8.2) 07/12/21 20:45 Albumin 4.3 g/dL (3.9-5) 07/12/21 20:45 Albumin/Globulin Ratio 1.3 % 07/12/21 20:45 Lipase 12 units/L (13-60) L 07/12/21 20:45 - Imaging and Cardiology Chest x-ray: report reviewed Assessment and Plan VTE prophylaxis?: Mechanical Plan of care discussed with patient/family: Yes - Patient Problems (1) Hematemesis Current Visit: Yes Status: Acute Plan to address problem: Admit the patient to the medical floor. N.p.o. Normal saline at the rate of 100 cc/h. Protonix 40 mg IV every 12 hours. We will do the serial CBC. Will consult GI for evaluation. Recheck CBC in the morning (2) Alcohol withdrawal Current Visit: Yes Status: Acute Plan to address problem: We will put the patient on CIWA protocol as per alcohol withdrawal protocol. Protonix 40 mg IV every 12 hours. Multivitamin 1 tablet p.o. daily. We will monitor the patient closely. Patient counseled regarding quit drinking (3) Gastritis Current Visit: Yes Status: Acute Plan to address problem: NPO. Normal saline at the rate of 100 cc/h. Protonix 40 mg IV every 12 hours. Reconsult GI (4) Hyponatremia Current Visit: Yes Status: Acute Plan to address problem: Normal saline at the rate of 100 cc/h. We will recheck BMP in the morning (5) Chest pain Current Visit: No Status: Acute Qualifiers: Chest pain type: unspecified Qualified Code(s): R07.9 - Chest pain, unspecified Plan to address problem: Most likely secondary to gastritis. NPO. Normal saline at the rate 100 cc/h. We continue the home medication. We will monitor the patient closely. We do the serial cardiac enzyme.In December 2019 left heart cardiac catheterization revealed normal size left ventricle with normal contractility and normal coronary anatomy . 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 Reconsult diabetic education. Recheck BMP in the morning (7) DVT prophylaxis Current Visit: No Status: Acute Plan to address problem: SCD for DVT prophylaxis. Protonix 40 mg IV every 12 hours for GI prophylaxis. Patient is a full code
[2021-07-13] MEDS: SODIUM CHLORIDE 0.9% 1000 ML 1,000 ML IV SCH ×2 (03:18→16:33)
[2021-07-13] MEDS: IPRATROPIUM/ALBUTEROL SULFATE 3 ML AMPUL.NEB IH SCH ×2 (04:14→08:58)
[2021-07-13] MEDS: INSULIN LISPRO 100 UNIT/ML SUB-Q SCH ×3 (06:41→18:16)
--- NOTE | 2021-07-13 07:47 | Progress Note ---
Assessment and Plan Assessment and plan: History of present illness: 61-year-old male with history of diabetes mellitus, GERD, hypertension alcohol dependence was brought to the emergency room because of nausea vomiting blood and abdominal pain since yesterday. Patient is not feeling well. Family member called 911. Last drink of alcohol yesterday. He drinks several beers per day. EMS called for medical direction prior to arrival. Concern for alcohol withdrawals with tachycardia and tremor. Patient has sharp chest pain radiating to the epigastric region. He also has hiccups. Denies bloody stools. He did not drink beer today due to nausea vomiting. In the emergency room patient is found to have alcohol withdrawal, vomiting blood and abdominal pain so we are going to admit the patient we will put the patient on Protonix and consult GI Hospital course to date 07/13: Resting comfortably on encounter. Hemodynamically stable. Hemoglobin of 14.2 on CBC last night. Getting IV normal saline currently due to hyponatremia likely from volume depletion. We will continue supportive management, patient will remain n.p.o., continue with Protonix, and continue IV normal saline. Awaiting gastroenterology recommendations. Assessment and plan (1) Hematemesis Current Visit: Yes Status: Acute Plan to address problem: Admit the patient to the medical floor. N.p.o. Normal saline at the rate of 100 cc/h. Protonix 40 mg IV every 12 hours. We will do the serial CBC. Will consult GI for evaluation. Recheck CBC in the morning (2) Alcohol withdrawal Current Visit: Yes Status: Acute Plan to address problem: We will put the patient on CIWA protocol as per alcohol withdrawal protocol. Protonix 40 mg IV every 12 hours. Multivitamin 1 tablet p.o. daily. We will monitor the patient closely. Patient counseled regarding quit drinking (3) Gastritis Current Visit: Yes Status: Acute Plan to address problem: NPO. Normal saline at the rate of 100 cc/h. Protonix 40 mg IV every 12 hours. Consult GI (4) Hyponatremia Current Visit: Yes Status: Acute Plan to address problem: Normal saline at the rate of 100 cc/h. We will recheck BMP in the morning (5) Chest pain Current Visit: No Status: Acute Qualifiers: Chest pain type: unspecified Qualified Code(s): R07.9 - Chest pain, unspecified Plan to address problem: Most likely secondary to gastritis. NPO. Normal saline at the rate 100 cc/h. We continue the home medication. We will monitor the patient closely. We do the serial cardiac enzyme.In December 2019 left heart cardiac catheterization revealed normal size left ventricle with normal contractility and normal coronary anatomy . 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 Reconsult diabetic education. Recheck BMP in the morning (7) DVT prophylaxis Current Visit: No Status: Acute Plan to address problem: SCD for DVT prophylaxis. Protonix 40 mg IV every 12 hours for GI prophylaxis. Patient is a full code History Interval history: Asymptomatic on encounter no acute complaints. He states that hematemesis started on Wednesday and patient started having stomach pain yesterday which is why he came to our facility. Patient states that he has had hematemesis in the past before and was told at that time that this was related to his history of alcoholism. He denied any tremors, headache, hallucinations, melena or hematochezia. Hospitalist Physical - Physical exam Narrative exam: General appearance: Present: no acute distress, well-nourished - EENT Eyes: Present: PERRL ENT: hearing intact, clear oral mucosa - Neck Neck: Present: supple, normal ROM - Respiratory Respiratory effort: normal Respiratory: bilateral: diminished - Cardiovascular Heart Sounds: Present: S1 & S2. Absent: rub, click - Extremities Extremities: pulses symmetrical, No edema Peripheral Pulses: within normal limits - Abdominal General gastrointestinal: Present: soft, tender, non-distended, normal bowel sounds Male genitourinary: Present: normal - Integumentary Integumentary: Present: clear, warm, dry - Musculoskeletal Musculoskeletal: gait normal, strength equal bilaterally - Psychiatric Psychiatric: appropriate mood/affect, intact judgment & insight - Neurologic Neurologic: CNII-XII intact, moves all extremities - Constitutional Vitals: Temp Pulse Resp BP Pulse Ox 98.0 F 101 H 30 H 109/82 96 07/12/21 21:10 07/13/21 04:21 07/13/21 04:21 07/13/21 04:21 07/13/21 04:21 General appearance: Present: no acute distress, well-nourished HEART Score - HEART Score EKG: Non-specific Age: 45-65 Risk factors: 1-2 risk factors Troponin: Troponin T < 0.010 ng/mL (0.00-0.029) 07/12/21 20:45 Troponin: < normal limit - Critical Actions Critical Actions: 0-3 pts:0.9-1.7%risk of adverse cardiac event.Candidate for discharge Results - Labs CBC & Chem 7: 07/12/21 20:45 07/12/21 20:45 Labs: Laboratory Last Values WBC 12.6 K/mm3 (4.5-11.0) H 07/12/21 20:45 RBC 5.09 M/mm3 (3.65-5.03) H 07/12/21 20:45 Hgb 14.2 gm/dl (11.8-15.2) 07/12/21 20:45 Hct 43.6 % (35.5-45.6) 07/12/21 20:45 MCV 86 fl (84-94) 07/12/21 20:45 MCH 28 pg (28-32) 07/12/21 20:45 MCHC 33 % (32-34) 07/12/21 20:45 RDW 14.8 % (13.2-15.2) 07/12/21 20:45 Plt Count 236 K/mm3 (140-440) 07/12/21 20:45 Lymph % (Auto) 13.7 % (13.4-35.0) 07/12/21 20:45 [place] % (Auto) 9.7 % (0.0-7.3) H 07/12/21 20:45 Eos % (Auto) 0.2 % (0.0-4.3) 07/12/21 20:45 Baso % (Auto) 0.3 % (0.0-1.8) 07/12/21 20:45 Lymph # (Auto) 1.7 K/mm3 (1.2-5.4) 07/12/21 20:45 [place] # (Auto) 1.2 K/mm3 (0.0-0.8) H 07/12/21 20:45 Eos # (Auto) 0.0 K/mm3 (0.0-0.4) 07/12/21 20:45 Baso # (Auto) 0.0 K/mm3 (0.0-0.1) 07/12/21 20:45 Seg Neutrophils % 76.1 % (40.0-70.0) H 07/12/21 20:45 Seg Neutrophils # 9.6 K/mm3 (1.8-7.7) H 07/12/21 20:45 Sodium 127 mmol/L (137-145) L 07/12/21 20:45 Potassium 3.7 mmol/L (3.6-5.0) 07/12/21 20:45 Chloride 88.3 mmol/L (98-107) L 07/12/21 20:45 Carbon Dioxide 21 mmol/L (22-30) L 07/12/21 20:45 Anion Gap 21 mmol/L 07/12/21 20:45 BUN 11 mg/dL (9-20) 07/12/21 20:45 Creatinine 0.9 mg/dL (0.8-1.3) 07/12/21 20:45 Estimated GFR > 60 ml/min 07/12/21 20:45 BUN/Creatinine Ratio 12 % 07/12/21 20:45 Glucose 138 mg/dL (75-100) H 07/12/21 20:45 POC Glucose 127 mg/dL (70-105) H 07/13/21 06:08 Calcium 8.9 mg/dL (8.4-10.2) 07/12/21 20:45 Total Bilirubin 1.30 mg/dL (0.1-1.2) H 07/12/21 20:45 Direct Bilirubin 0.4 mg/dL (0-0.2) H 07/12/21 20:45 Indirect Bilirubin 0.9 mg/dL 07/12/21 20:45 AST 26 units/L (5-40) 07/12/21 20:45 ALT 24 units/L (7-56) 07/12/21 20:45 Alkaline Phosphatase 96 units/L (35-129) 07/12/21 20:45 Troponin T < 0.010 ng/mL (0.00-0.029) 07/12/21 20:45 Total Protein 7.5 g/dL (6.3-8.2) 07/12/21 20:45 Albumin 4.3 g/dL (3.9-5) 07/12/21 20:45 Albumin/Globulin Ratio 1.3 % 07/12/21 20:45 Lipase 12 units/L (13-60) L 07/12/21 20:45 Active Medications - Current Medications Current Medications: Generic Name Dose Route Start Last Admin Trade Name Freq PRN Reason Stop Dose Admin Acetaminophen 650 mg 07/13/21 01:16 Acetaminophen 325 Mg Tab PO Q4H PRN Pain MILD(1-3)/Fever >100.5/SETHI Albuterol 2.5 mg 07/13/21 01:16 Albuterol 2.5 Mg/3 Ml Nebu IH Q4HRT PRN Shortness Of Breath Albuterol/Ipratropium 1 ampul 07/13/21 02:00 07/13/21 04:14 Ipratropium/Albuterol Sulfate 3 Ml Ampul.Neb IH Not Given Q6HRT SIMON Atorvastatin Calcium 40 mg 07/13/21 22:00 Atorvastatin 40 Mg Tab PO QHS SIMON Dextrose 50 ml 07/13/21 01:24 Dextrose 50% In Water (25gm) 50 Ml Syringe IV Q30MIN PRN Hypoglycemia Protocol Hydromorphone HCl 0.5 mg 07/13/21 01:16 Hydromorphone 1 Mg/1 Ml Inj IV Q3H PRN Pain , Severe (7-10) Sodium Chloride 1,000 mls @ 100 mls/hr 07/13/21 01:30 07/13/21 03:18 Nacl 0.9% 1000 Ml IV 100 mls/hr DIRECT SIMON Administration Insulin Human Lispro 0 unit 07/13/21 06:00 07/13/21 06:41 Insulin Lispro 100 Unit/Ml SUB-Q Not Given Q6HR [facility] Protocol Lorazepam 4 mg 07/12/21 20:35 Lorazepam 2 Mg/Ml Vial IV Q1H PRN CIWA-Ar 16-25 Lorazepam 2 mg 07/12/21 20:35 07/12/21 21:03 Lorazepam 2 Mg/Ml Vial IV 2 mg Q1H PRN Administration CIWA-Ar 8-15 Metoclopramide HCl 10 mg 07/13/21 01:20 Metoclopramide 10 Mg Tab PO QID PRN Nausea Metoprolol Tartrate 50 mg 07/13/21 10:00 Metoprolol Tartrate 50 Mg Tab PO BID [facility] Multivitamins 1 each 07/13/21 10:00 Multivitamins ,Therapeutic Tab PO QDAY SIMON Ondansetron HCl 4 mg 07/13/21 01:16 Ondansetron 4 Mg/2 Ml Inj IV Q8H PRN Nausea And Vomiting Oxycodone/Acetaminophen 1 tab 07/13/21 01:16 Oxycodone /Acetaminophen 5-325mg Tab PO Q6H PRN Pain, Moderate (4-6) Pantoprazole Sodium 40 mg 07/13/21 10:00 Pantoprazole 40 Mg Inj IV BID [facility] Sodium Chloride 10 ml 07/13/21 10:00 Sodium Chloride 0.9% 10 Ml Flush Syringe IV BID SIMON Sodium Chloride 10 ml 07/13/21 01:16 Sodium Chloride 0.9% 10 Ml Flush Syringe IV PRN PRN LINE FLUSH
[2021-07-13] MEDS ORDERED: MULTIVITAMINS ,THERAPEUTIC TAB PO SCH (10:00)
[2021-07-13] MEDS: PANTOPRAZOLE 40 MG INJ IV SCH ×2 (10:49→22:32)
[2021-07-13] MEDS: METOPROLOL TARTRATE 50 MG TAB PO SCH ×2 (11:00→22:32)
[2021-07-13] MEDS: MULTIVITAMINS ,THERAPEUTIC TAB PO SCH (11:00)
--- NOTE | 2021-07-13 17:00 | Consultation ---
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 He is feeling much better now. He also complained of chest pain with numbness in his left hand. He has had similar symptoms in the past and underwent an extensive cardiac evaluation that was negative in January 2020. Patient states that he came to the hospital because he wanted to get better. Patient has GERD symptoms and is supposed to be on a proton pump inhibitor but had not had the funds to get the medications. He is drinking 2 beers or more a day, and smokes approximately half a pack per day. Bowel movements occur once or twice a day. He denies melena or hematochezia. There is no weight loss. He has no known history of liver disease. Meds reviewed. Past History Past Medical History: diabetes, GERD, hypertension, other (Alcohol withdrawal) Past Surgical History: No surgical history Social history: smoking, alcohol abuse Medications and Allergies Allergies Allergy/AdvReac Type Severity Reaction Status Date / Time No Known Allergies Allergy Verified 09/08/19 15:20 Home Medications Medication Instructions Recorded Confirmed Last Taken Type Metoclopramide [Reglan TAB] 10 mg PO QID PRN #30 tab 09/09/19 02/03/20 Unknown Rx Multivitamin with Folic Acid [[facility] 400 mcg PO QDAY #30 tablet 09/09/19 02/03/20 Unknown Rx One Daily Essential Tablet] Esomeprazole Magnesium [Nexium 20 mg PO DAILY #30 tab 01/06/20 02/03/20 Unknown Rx 24Hr] AtorvaSTATin [Lipitor] 40 mg PO QHS #30 tablet 01/08/20 02/03/20 Unknown Rx Metoprolol [Lopressor TAB] 50 mg PO BID #60 tablet 01/08/20 02/03/20 Unknown Rx Multivitamin Tab [Multiple Vitamin 1 each PO QDAY tablet 01/08/20 02/03/20 Unknown Rx TAB (Theragran)] Gabapentin 300 mg PO QDAY 02/02/20 02/03/20 Unknown History metFORMIN [Glucophage] 500 mg PO BID 02/02/20 02/03/20 Unknown History Ibuprofen [Motrin] 600 mg PO Q8H PRN #20 tablet 03/29/20 Unknown Rx Ondansetron [Zofran Odt] 4 mg PO Q8HR PRN #15 tab.rapdis 03/29/20 Unknown Rx Acetaminophen [Non-Aspirin Extra 500 mg PO Q6HR PRN #30 tablet 04/26/20 Unknown Rx Strength] Famotidine [Pepcid] 20 mg PO BID #60 tablet 04/26/20 Unknown Rx Ibuprofen [Motrin] 600 mg PO Q8H PRN #30 tablet 04/26/20 Unknown Rx Multivitamin with Folic Acid [[facility]vs 400 mcg PO QDAY #30 tablet 04/26/20 Unknown Rx One Daily Essential Tablet] Multivitamin with Folic Acid [[facility] 400 mcg PO QDAY #30 tablet 09/13/20 Unknown Rx One Daily Essential Tablet] Active Meds: Active Medications Acetaminophen (Acetaminophen 325 Mg Tab) 650 mg PO Q4H PRN PRN Reason: Pain MILD(1-3)/Fever >100.5/SETHI Albuterol (Albuterol 2.5 Mg/3 Ml Nebu) 2.5 mg IH Q4HRT PRN PRN Reason: Shortness Of Breath Atorvastatin Calcium (Atorvastatin 40 Mg Tab) 40 mg PO QHS SIMON Dextrose (Dextrose 50% In Water (25gm) 50 Ml Syringe) 50 ml IV Q30MIN PRN; Protocol PRN Reason: Hypoglycemia Sodium Chloride (Nacl 0.9% 1000 Ml) 1,000 mls @ 100 mls/hr IV DIRECT SIMON Last Admin: 07/13/21 16:33 Dose: 100 mls/hr Documented by: Insulin Human Lispro (Insulin Lispro 100 Unit/Ml) 0 unit SUB-Q Q6HR SIMON; Protocol Last Admin: 07/13/21 12:00 Dose: Not Given Documented by: Lorazepam (Lorazepam 2 Mg/Ml Vial) 4 mg IV Q1H PRN PRN Reason: BRIA-Ignacio 16- Lorazepam (Lorazepam 2 Mg/Ml Vial) 2 mg IV Q1H PRN PRN Reason: MIKIWA-Ignacio 8-15 Last Admin: 07/12/21 21:03 Dose: 2 mg Documented by: Metoclopramide HCl (Metoclopramide 10 Mg Tab) 10 mg PO QID PRN PRN Reason: Nausea Metoprolol Tartrate (Metoprolol Tartrate 50 Mg Tab) 50 mg PO BID [facility] Last Admin: 07/13/21 11:00 Dose: 50 mg Documented by: Multivitamins (Multivitamins ,Therapeutic Tab) 1 each PO QDAY [facility] Last Admin: 07/13/21 11:00 Dose: 1 each Documented by: Ondansetron HCl (Ondansetron 4 Mg/2 Ml Inj) 4 mg IV Q8H PRN PRN Reason: Nausea And Vomiting Oxycodone/Acetaminophen (Oxycodone /Acetaminophen 5-325mg Tab) 1 tab PO Q6H PRN PRN Reason: Pain, Moderate (4-6) Pantoprazole Sodium (Pantoprazole 40 Mg Inj) 40 mg IV BID [facility] Last Admin: 07/13/21 10:49 Dose: 40 mg Documented by: Sodium Chloride (Sodium Chloride 0.9% 10 Ml Flush Syringe) 10 ml IV BID [facility] Last Admin: 07/13/21 10:25 Dose: 10 ml Documented by: Sodium Chloride (Sodium Chloride 0.9% 10 Ml Flush Syringe) 10 ml IV PRN PRN PRN Reason: LINE FLUSH Last Admin: 07/13/21 16:22 Dose: 10 ml Documented by: Review of Systems All systems: negative (as noted above.) Exam - Constitutional Vitals: Temp Pulse Resp BP Pulse Ox 98.3 F 88 18 128/81 100 07/13/21 12:54 07/13/21 12:54 07/13/21 12:54 07/13/21 12:54 07/13/21 12:54 General appearance: Present: no acute distress - EENT Eyes: Present: PERRL, EOM intact ENT: hearing intact - Respiratory Respiratory effort: normal Respiratory: bilateral: CTA - Cardiovascular Rhythm: regular Heart Sounds: Present: S1 & S2 - Extremities Extremities: No edema - Abdominal General gastrointestinal: Present: soft, non-tender Results - Labs CBC & Chem 7: 07/12/21 20:45 07/12/21 20:45 Labs: Abnormal lab results 07/12/21 07/12/21 07/13/21 Range/Units 20:45 20:45 06:08 WBC 12.6 H (4.5-11.0) K/mm3 RBC 5.09 H (3.65-5.03) M/mm3 [place] % (Auto) 9.7 H (0.0-7.3) % [place] # (Auto) 1.2 H (0.0-0.8) K/mm3 Seg Neutrophils % 76.1 H (40.0-70.0) % Seg Neutrophils # 9.6 H (1.8-7.7) K/mm3 Sodium 127 L (137-145) mmol/L Chloride 88.3 L (98-107) mmol/L Carbon Dioxide 21 L (22-30) mmol/L Glucose 138 H (75-100) mg/dL POC Glucose 127 H (70-105) mg/dL Total Bilirubin 1.30 H (0.1-1.2) mg/dL Direct Bilirubin 0.4 H (0-0.2) mg/dL Lipase 12 L (13-60) units/L // Range/Units 11:50 WBC (4.5-11.0) K/mm3 RBC (3.65-5.03) M/mm3 [place] % (Auto) (0.0-7.3) % [place] # (Auto) (0.0-0.8) K/mm3 Seg Neutrophils % (40.0-70.0) % Seg Neutrophils # (1.8-7.7) K/mm3 Sodium (137-145) mmol/L Chloride (98-107) mmol/L Carbon Dioxide (22-30) mmol/L Glucose (75-100) mg/dL POC Glucose 125 H (70-105) mg/dL Total Bilirubin (0.1-1.2) mg/dL Direct Bilirubin (0-0.2) mg/dL Lipase (13-60) units/L Assessment and Plan 1. Coffee ground emesis - minimal amount mixed with fluid. Most likely related to esophagitis, possibly Apple-Bowman tear. Symptoms resolved, with no further N/V. Hgb normal. - adv diet as tolerated - chronic PPI 2. N/V - acute onset. Resolved. May have been transient toxic/infectious process. No further evaluation for now. 3. Epigastric pain - may have been musculoskeletal and due to retching. Improving. No further evaluation. 4. Alcohol and tobacco abuse -patient expresses desire to quit. Encouraged. No further GI recommendations. We will sign off.
[2021-07-14] MEDS: INSULIN LISPRO 100 UNIT/ML SUB-Q SCH ×2 (00:16→07:40)
[2021-07-14] MEDS: SODIUM CHLORIDE 0.9% 1000 ML 1,000 ML IV SCH (03:00)
[2021-07-14 05:00] VITALS: BP 146/83
[2021-07-14 06:30] LABS: Basophils % (Auto) 0.5 % (0.0-1.8); Eosinophils # (Auto) 0.1 K/mm3 (0.0-0.4); Eosinophils % (Auto) 0.8 % (0.0-4.3); Hematocrit 39.7 % (35.5-45.6); Hemoglobin 12.7 gm/dl (11.8-15.2); Lymphocytes # (Auto) 1.9 K/mm3 (1.2-5.4); Lymphocytes % (Auto) 21.5 % (13.4-35.0); Mean Corpuscular HGB Conc 32 % (32-34); Mean Corpuscular Volume 88 fl (84-94); Monocytes # (Auto) 0.8 K/mm3 (0.0-0.8); Monocytes % (Auto) 9.2 % (0.0-7.3); Platelet Count 175 K/mm3 (140-440); Red Blood Count 4.51 M/mm3 (3.65-5.03); Red Cell Distribution Width 14.9 % (13.2-15.2)
[2021-07-14 06:37] LABS: BUN/Creatinine Ratio 11; Blood Urea Nitrogen 9 mg/dL (9-20); Calcium 8.6 mg/dL (8.4-10.2); Hemolysis Index 7
--- NOTE | 2021-07-14 08:42 | Discharge Summary ---
Providers - Providers Date of Admission: 07/13/21 01:52 Date of discharge: 07/14/21 Attending physician: JUD KRUGER MD 07/13/21 01:16 Consult to Physician [CONS] Routine Comment: Consulting Provider: LINUS PAPPAS Physician Instructions: Reason For Exam: gib 07/13/21 01:24 Consult to Dietitian/Nutrition [CONS] Routine Physician Instructions: Reason For Exam: Reason for Consult: Diet education Primary care physician: INVESTIGATOR [employer] Hospitalization Reason for admission: hematemesis Condition: Fair Hospital course: History of present illness: 61-year-old male with history of diabetes mellitus, GERD, hypertension alcohol dependence was brought to the emergency room because of nausea vomiting blood and abdominal pain since yesterday. Patient is not feeling well. Family member called 911. Last drink of alcohol yesterday. He drinks several beers per day. EMS called for medical direction prior to arrival. Concern for alcohol withdrawals with tachycardia and tremor. Patient has sharp chest pain radiating to the epigastric region. He also has hiccups. Denies bloody stools. He did not drink beer today due to nausea vomiting. In the emergency room patient is found to have alcohol withdrawal, vomiting blood and abdominal pain so we are going to admit the patient we will put the patient on Protonix and consult GI Hospital course to date 07/13: Asymptomatic on encounter no acute complaints. He states that hematemesis started on Wednesday and patient started having stomach pain yesterday which is why he came to our facility. Patient states that he has had hematemesis in the past before and was told at that time that this was related to his history of alcoholism. He denied any tremors, headache, hallucinations, melena or hematochezia. Resting comfortably on encounter. Hemodynamically stable. Hemoglobin of 14.2 on CBC last night. Getting IV normal saline currently due to hyponatremia likely from volume depletion. We will continue supportive management, patient will remain n.p.o., continue with Protonix, and continue IV normal saline. Awaiting gastroenterology recommendations. 07/14: Hemoglobin is stable this morning 12.7. Gastroenterology evaluated patient yesterday. Recommended chronic PPI and to advance diet as tolerated. Hematemesis likely related to esophagitis, possibly Apple-Bowman tear. Symptoms have now resolved with out further nausea and vomiting. Epigastric pain is improving likely due to retching from vomiting. Patient will be advised to quit smoking and drinking alcohol. Patient has expressed a desire to quit and was advised to seek counseling outpatient. At the time of discharge patient had no signs and symptoms of alcoholic withdrawal. All vital signs were stable. He is advised to follow-up outpatient with his primary care doctor in 3 to 5 days. Information was provided for gastroenterology as well. Prescription for Protonix sent to [facility] in [place], [place]. Assessment and plan (1) Hematemesis Current Visit: Yes Status: Acute Plan to address problem: Admit the patient to the medical floor. N.p.o. Normal saline at the rate of 100 cc/h. Protonix 40 mg IV every 12 hours. We will do the serial CBC. Will consult GI for evaluation. Recheck CBC in the morning (2) Alcohol withdrawal Current Visit: Yes Status: Acute Plan to address problem: We will put the patient on CIWA protocol as per alcohol withdrawal protocol. Protonix 40 mg IV every 12 hours. Multivitamin 1 tablet p.o. daily. We will monitor the patient closely. Patient counseled regarding quit drinking (3) Gastritis Current Visit: Yes Status: Acute Plan to address problem: NPO. Normal saline at the rate of 100 cc/h. Protonix 40 mg IV every 12 hours. Consult GI (4) Hyponatremia Current Visit: Yes Status: Acute Plan to address problem: Normal saline at the rate of 100 cc/h. We will recheck BMP in the morning (5) Chest pain Current Visit: No Status: Acute Qualifiers: Chest pain type: unspecified Qualified Code(s): R07.9 - Chest pain, unspecified Plan to address problem: Most likely secondary to gastritis. NPO. Normal saline at the rate 100 cc/h. We continue the home medication. We will monitor the patient closely. We do the serial cardiac enzyme.In December 2019 left heart cardiac catheterization r evealed normal size left ventricle with normal contractility and normal coronary anatomy . If needed will consult cardiology (6) Type 2 diabetes mellitus Current Visit: No Status: Chronic Qualifiers: Diabetes mellitus jail insulin use: unspecified jail insulin use status Plan to address problem: Humalog sliding scale Accu-Chek every 6 hours with moderate dose coverage. Reconsult diabetic education. Recheck BMP in the morning (7) DVT prophylaxis Current Visit: No Status: Acute Plan to address problem: SCD for DVT prophylaxis. Protonix 40 mg IV every 12 hours for GI prophylaxis. Patient is a full code Disposition: 01 HOME / SELF CARE / HOMELESS Final Discharge Diagnosis (Prints w/discharge instructions): Hematemesis Time spent for discharge: 35 - Discharge Diagnoses (1) Alcohol withdrawal Status: Acute (2) Esophagitis Status: Acute (3) Gastritis Status: Acute (4) Hematemesis Status: Acute (5) Tobacco abuse Status: Chronic Core Measure Documentation - Palliative Care Palliative Care/ Comfort Measures: Not Applicable - Core Measures Any of the following diagnoses?: none Exam - Physical Exam Narrative exam: General appearance: Present: no acute distress, well-nourished - EENT Eyes: Present: PERRL ENT: hearing intact, clear oral mucosa - Neck Neck: Present: supple, normal ROM - Respiratory Respiratory effort: normal Respiratory: bilateral: diminished - Cardiovascular Heart Sounds: Present: S1 & S2. Absent: rub, click - Extremities Extremities: pulses symmetrical, No edema Peripheral Pulses: within normal limits - Abdominal General gastrointestinal: Present: soft, tender, non-distended, normal bowel sounds Male genitourinary: Present: normal - Integumentary Integumentary: Present: clear, warm, dry - Musculoskeletal Musculoskeletal: gait normal, strength equal bilaterally - Psychiatric Psychiatric: appropriate mood/affect, intact judgment & insight - Neurologic Neurologic: CNII-XII intact, moves all extremities - Constitutional Vitals: Temp Pulse Resp BP Pulse Ox 97.8 F 90 18 146/83 100 07/14/21 07:54 07/14/21 07:54 07/14/21 07:54 07/14/21 07:54 07/14/21 07:54 Plan Activity: advance as tolerated Weight Bearing Status: Weight Bear as Tolerated Diet: low fat, low cholesterol, low salt Follow up with: PRIMARY CAREMD [Primary Care Provider] - 7 Days LINUS PAPPAS MD [Staff Physician] - 7 Days Prescriptions: Pantoprazole [Protonix] 40 mg PO QDAY 30 Days #30 tablet
--- NOTE | 2021-07-14 09:42 | Electrocardiograph Report ---
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
[2021-07-14] MEDS: PANTOPRAZOLE 40 MG INJ IV SCH (10:10)
[2021-07-14] MEDS: METOPROLOL TARTRATE 50 MG TAB PO SCH (10:10)
[2021-07-14] MEDS: MULTIVITAMINS ,THERAPEUTIC TAB PO SCH (10:11)
== END 2021-07-14 13:42 | disposition home or self-care (01) | DRG 378 ==
LOC: ED 20:19 → 4A 07-13 01:52
PROVIDERS: ADMIT Hospitalist; ATTEND Internal Medicine
DX: K92.0 Hematemesis (principal); F10.239 Alcohol dependence with withdrawal, unspecified; E87.1 Hypo-osmolality and hyponatremia; K29.70 Gastritis, unspecified, without bleeding; K21.9 Gastro-esophageal reflux disease without esophagitis; E11.9 Type 2 diabetes mellitus without complications; I10 Essential (primary) hypertension; K20.90 Esophagitis, unspecified without bleeding; Z20.822 Contact with and (suspected) exposure to COVID-19
CPT/HCPCS: 36415; 71045; 80048; 80076; 82962; 83690; 84484; 85025; 93005; G0378; C9113; J2060; J3230; J7030